=== PATIENT | male | born 1980 | race African-American/Black ===

== ENCOUNTER 2017-01-20 08:06 | Emergency (ER) | payer OTHER ==
[2017-01-20 08:12] VITALS: TEMP 97.4; BMI 28.4
[2017-01-20] MEDS ORDERED: SODIUM CHLORIDE 1,000 ML IV ONE (09:15)
--- NOTE | 2017-01-20 09:15 | PDOC ---
History of Present Illness <Valerio Rush - Last Filed: 01/20/17 15:51> - General History Source: Patient Exam Limitations: No Limitations - History of Present Illness Initial Comments: 01/20/17 09:25 36 y/o M with a PMHx of Takayasus arteritis, AAA x3, aortic root replacement, aortic valve repair, depression presents to the ED with right sided chest pain today. He describes the pain as a sharp, stabbing pain. He states the pain is better while lying down, and worsened with movement. He reports associated palpitations, diaphoresis, lightheadedness, and blurry vision. He took two Tylenol this morning with no relief. He reports similar episodes of chest pain in the past, that usually lasts a couple of seconds before resolving. He states this episode is more severe pain and lasted longer than normal. He recently saw his cardiac surgeon, who told him his aortic root is dilated 5.7 cm. He was told to follow up at the end of the year to see if it resolves on its own. He denies recent injuries. He denies SOB, fever, chills. He denies cough, headache , numbness, tingling, weakness. He denies abdominal pain, nausea, vomiting, diarrhea. Duplication Specialist: Dr. Danny Mora Cardiac Surgeon: Dr. Edwin Jaimes <Ramona Chacon - Last Filed: 01/20/17 16:01> - General Chief Complaint: Chest Pain Stated Complaint: CHEST PAIN Time Seen by Provider: 01/20/17 08:38 Past History - Past Medical History Anemia: No Asthma: No Cancer: No Cardiac Disorders: Yes (X 3 AAA) CVA: No COPD: No CHF: No Dementia: No Diabetes: No GI Disorders: No Disorders: No HTN: No Hypercholesterolemia: No Liver Disease: No Psychiatric Problems: Yes (depression) Suicide Attempt (Hx): No Seizures: No Thyroid Disease: No Other medical history: takayasu arteritis (blood vessel inflammation) - Surgical History Abdominal Surgery: Yes (ABDOMINAL HERNIA) Appendectomy: No Cardiac Surgery: Yes (AORTIC ROOT REPLACEMENT; "ASCENDING ANEURYM REPAIR", cardiac valve replacem) Cholecystectomy: No Lung Surgery: No Neurologic Surgery: No Orthopedic Surgery: No - Psycho/Social/Smoking Cessation Hx Anxiety: No Suicidal Ideation: No Smoking Status: No Smoking History: Never smoked Have you smoked in the past 12 months: No Number of Cigarettes Smoked Daily: 0 Information on smoking cessation initiated: No Hx Alcohol Use: No Drug/Substance Use Hx: No Substance Use Type: None Hx Substance Use Treatment: No <Valerio Rush - Last Filed: 01/20/17 15:51> <Ramona Chacon - Last Filed: 01/20/17 16:01> - Past Medical History Allergies/Adverse Reactions: Allergies Allergy/AdvReac Type Severity Reaction Status Date / Time lactose Allergy Verified 01/20/17 08:12 No Known Drug Allergies Allergy Verified 01/20/17 08:12 orange Allergy Mild Uncoded 01/20/17 08:12 Home Medications: Ambulatory Orders Calcium Carbonate/Vitamin D3 [Calcium 600-Vit D3 200 Tablet] 1 each PO BID 07/05 Carvedilol [Coreg] 6.25 mg PO BID 07/05/14 Folic Acid - 1 mg PO DAILY 07/05/14 Warfarin Sodium [Coumadin] 10 mg PO HS 07/05/14 Aspirin [ASA -] 81 mg PO DAILY 12/26/14 Famotidine 20 mg PO BID 12/26/14 Azathioprine [Imuran -] 100 mg PO BID 10/06/15 Carvedilol [Coreg -] 3.125 mg PO BID 01/20/17 Prednisone [Deltasone -] 5 mg PO BID 01/20/17 Review of Systems - Review of Systems Constitutional: No: Chills, Fever Respiratory: Yes: Shortness of Breath. No: Cough Cardiac (ROS): Yes: Chest Pain. No: Lightheadedness, Syncope ABD/GI: No: Nausea, Vomiting Musculoskeletal: Yes: Muscle Pain Neurological: No: Headache All Other Systems: Reviewed and Negative <Valerio Rush - Last Filed: 01/20/17 15:51> *Physical Exam - Vital Signs Last Vital Signs Temp Pulse Resp BP Pulse Ox 97.4 F L 70 18 114/60 99 01/20/17 08:09 01/20/17 08:09 01/20/17 08:09 01/20/17 08:09 01/20/17 08:09 <Valerio Rush - Last Filed: 01/20/17 15:51> - Vital Signs Last Vital Signs Temp Pulse Resp BP Pulse Ox 97.4 F L 70 18 114/60 99 01/20/17 08:09 01/20/17 08:09 01/20/17 08:09 01/20/17 08:09 01/20/17 08:09 - Physical Exam Comments: 01/20/17 09:51 GENERAL: The patient is awake, alert, and fully oriented, in no acute distress. HEAD: Normal with no signs of trauma. EYES: Pupils equal, round and reactive to light, extraocular movements intact, sclera anicteric, conjunctiva clear with no pallor. ENT: Ears normal, nares patent, oropharynx clear without exudates. Moist mucous membranes. NECK: Normal range of motion, supple without lymphadenopathy, JVD, or masses. LUNGS: Slightly distant breath sounds at left base. Otherwise clear to auscultation. No wheeze/crackles. HEART: 3-4/6 ejection murmur loudest at right upper sternal border with audible click of mechanical valve. Regular rate and rhythm, ABDOMEN: Soft/nontender/nondistended. BS wnl. No guarding or rebound. No palpable masses. No hepatosplenomegaly. EXTREMITIES: Normal range of motion, no edema. No clubbing or cyanosis. No cords, erythema, or tenderness. NEUROLOGICAL: Cranial nerves II through XII grossly intact. Normal speech, normal gait. PSYCH: Normal mood, normal affect. SKIN: Midline chest incisional scar. Warm, Dry, normal turgor, no rashes or lesions noted. <Ramona Chacon - Last Filed: 01/20/17 16:01> Heart Score/ECG Review #1 ECG reviewed & interpreted by me at: 08:13 01/20/17 09:38 Sinus at 66 with normal intervals. Submillimeter ST elevation in V1 and V2 without reciprocal changes that seem most consistent with early repolarization abnormality. Though these are new compared to prior EKG performed September 2015. LVH , no other acute changes. #2 ECG reviewed & interpreted by me at: 09:51 Compared to previous ECG there are: No significant change <Valerio Rush - Last Filed: 01/20/17 15:51> ED Treatment Course - LABORATORY CBC & Chemistry Diagram: 01/20/17 09:25 01/20/17 09:25 <Valerio Rush - Last Filed: 01/20/17 15:51> - LABORATORY CBC & Chemistry Diagram: 01/20/17 09:25 01/20/17 09:25 - RADIOLOGY Radiograph Interpretation: 01/20/17 11:21 Chest X-Ray Reported by Dr. Uli Denny Impression: Increased density in the left mid and lower lung field are again seen. Superimposed infiltrate cannot be excluded. 01/20/17 16:00 Chest CTA Reported by Dr. Shun Kumari Impression: No definite interval change is seen in comparison to a prior study of 06/24/2016 as discussed above. <OswaldoRamona A - Last Filed: 01/20/17 16:01> Medical Decision Making - Medical Decision Making 01/20/17 09:40 A portion of this note was documented by scribe services under my direction. I have reviewed the details of the note, within reason, and agree with the documentation with the following case summary and management plan written by me. 36-year-old male with history of Takayasu's arteritis status post aortic root repair and aortic valve replacement with recently diagnosed dilatation of the ascending aorta to 5.7 centimeters on last evaluation within last 2 months presents now with persistent and sharp right-sided chest pain since this morning. No trauma, no cough or fevers or chills, associated with some diaphoresis and shortness of breath and palpitations. Vital signs normal, appears comfortable and speaking full sentences no jvd s1s2 regular with audible murmur and click at RUSB 2+ radial pulse b/l 36y/o M with h/o arteritis and known aortic root disease with R chest pain. HD stable, EKG without acute ischemia. Concern for exacerbation of arteritis, ? dissection, pericarditis r/o myocarditis, most benign ? musculoskeletal. less likely primary pulmonary process. labs, ekg, cxr --> will need chest cta for dissection declines pain meds discuss with Dr. Mora reassess 01/20/17 10:36 cbc/chem wnl, trop and bnp negative, mildly elevated AST/ALT. INR therapeutic. CXR pending but will proceed with CTA chest. 01/20/17 15:21 prelim CTA chest shows no acute change in known ascending aortic aneurysm, no dissection/PE/PTX. Discussed with Dr. Mora, will see patient in ED assist with dispo planning. 01/20/17 15:51 Discussed with patient and Dr. Mora at bedside. Sxs have improved significantly, now with increased ROM of RUE, remains NVI, chest pain resolved. CT chest shows no acute pathology, labs reviewed and wnl. Pt was evaluated in past for similar presentation and had no acute findings, sxs resolved spontaneously at that time as well. Plan is to discharge with close f/u with Dr. Mora and his PCP/ machine setter automatic. They will f/u with the patient daily this week to assess his sxs and determine indications for therapeutic doses of steroids. Pt agrees with plan, understdands strict return criteria. Also has close f/u with his surgeon - given no acute change in the ascending aorta, no emergent indication for surgery at this time. <Valerio Rush - Last Filed: 01/20/17 15:51> - Medical Decision Making 01/20/17 15:[address] Danny Mora. [phone] 01/20/17 15:[address] Mora. <Ramona Chacon - Last Filed: 01/20/17 16:01> *DC/Admit/Observation/Transfer <Valerio Rush - Last Filed: 01/20/17 15:51> - Attestations Scribe Attestion: 01/20/17 09:25 Documentation prepared by Ramona Chacon, acting as forensic medical examiner for Valerio Rush MD. <Ramona Chacon - Last Filed: 01/20/17 16:01> Diagnosis at time of Disposition: Right-sided chest pain, Takayasu's arteritis - Discharge Dispostion Disposition: HOME - Referrals Referrals: Vickie Ozuna MD [Primary Care Provider] - Danny Mora MD [Staff Physician] - - Patient Instructions Printed Discharge Instructions: DI for Atypical Chest Pain Additional Instructions: Activity as tolerated. Stay hydrated. Tylenol 1000 mg every 8 hours as needed for pain. Blood tests, an EKG, and a CAT scan of the chest showed no acute abnormalities. Keep the attached results for your records. Continue your medications as previously prescribed by your physician. You should follow up with your primary doctor, Dr. Mora, and your surgeon as soon as possible regarding today's emergency department visit. As discussed, your doctors will monitor your symptoms daily this week and determine any need for interventions, including whether we need to increase your steroid dose. Return to the emergency department for any new or concerning symptoms, particularly persistent or worsening chest pain, palpitations or shortness of breath, fever/chills, light-headedness/passing out.
[2017-01-20 09:59] LABS: BASOPHIL 0.4 % (0-2.0); EOSINOPHIL 0.5 % (0-4.5); MCH 30.1 pg (25.7-33.7); MEAN CELL VOLUME 91.1 fl (80-96); MEAN PLT VOLUME 7.4 fl (7.5-11.1); NEUTROPHILS 75.8 % (42.8-82.8); PLATELET COUNT 275 K/MM3 (134-434); RDW 17.8 % (11.9-15.9); WHITE BLOOD COUNT 7.6 K/mm3 (4.0-10.0)
[2017-01-20 10:17] LABS: INR 3.87 (0.82-1.09); PROTHROMBIN TIME (PATIENT) 43.8 SEC (9.98-11.88)
[2017-01-20 10:24] LABS: ALBUMIN 3.1 g/dl (3.4-5.0); ANION GAP 5 (8-16); BILIRUBIN,TOTAL 0.8 mg/dL (0.2-1.0); CALCIUM 8.7 mg/dL (8.5-10.1); CO2 31 mmol/L (21-32); CPK 69 IU/L (39-308); CREATININE 0.7 mg/dL (0.7-1.3); GLUCOSE,RANDOM 97 mg/dL (74-106); MAGNESIUM 1.9 mg/dL (1.8-2.4); SGOT/AST 64 U/L (15-37); SGPT/ALT 80 U/L (12-78); TOT PROT 6.3 g/dl (6.4-8.2)
[2017-01-20 10:26] LABS: ALK PHOS 63 U/L (45-117); TROPONIN I 0.02 ng/ml (0.00-0.05)
[2017-01-20 16:19] VITALS: BP 151/57; PULSE 51
--- NOTE | 2017-01-20 17:22 | EKG ---
Test Reason : Blood Pressure : / mmHG Vent. Rate : 056 BPM Atrial Rate : 056 BPM P-R Int : 176 ms QRS Dur : 106 ms QT Int : 428 ms P-R-T Axes : 026 001 005 degrees QTc Int : 413 ms SINUS BRADYCARDIA VOLTAGE CRITERIA FOR LEFT VENTRICULAR HYPERTROPHY ST ELEVATION, CONSIDER EARLY REPOLARIZATION, PERICARDITIS, OR INJURY ABNORMAL ECG WHEN COMPARED WITH ECG OF 20-JAN-2017 08:13, NO SIGNIFICANT CHANGE WAS FOUND Confirmed by CALEB VELIZ MD ([id number]) on 01/20/2017 5:22:13 PM Referred By: Confirmed By:CALEB VELIZ MD
--- NOTE | 2017-01-20 17:26 | EKG ---
Test Reason : Blood Pressure : / mmHG Vent. Rate : 066 BPM Atrial Rate : 066 BPM P-R Int : 156 ms QRS Dur : 098 ms QT Int : 384 ms P-R-T Axes : 044 -06 001 degrees QTc Int : 402 ms NORMAL SINUS RHYTHM POSSIBLE LEFT ATRIAL ENLARGEMENT LEFT VENTRICULAR HYPERTROPHY EARLY REPOLARIZATION ABNORMAL ECG WHEN COMPARED WITH ECG OF 26-SEP-2015 14:31, MINIMAL CRITERIA FOR SEPTAL INFARCT ARE NO LONGER PRESENT NON-SPECIFIC CHANGE IN ST SEGMENT IN ANTERIOR LEADS REPEAT EKG IF CLINICALLY INDICATED Confirmed by CALEB VELIZ MD ([id number]) on 01/20/2017 5:26:04 PM Referred By: Confirmed By:CALEB VELIZ MD
== END 2017-01-20 16:19 | disposition home or self-care (01) ==
LOC: JER 08:06
PROC: 3E0337Z Introduction of Electrolytic and Water Balance Substance into Peripheral Vein, Percutaneous Approach (ICD-10-PCS; principal; 2017-01-20)
DX: R07.89 Other chest pain (principal); M31.4 Aortic arch syndrome [Takayasu]
CPT/HCPCS: 36415; 71010-TC; 71275-TC; 80053; 83735; 83880; 84484; 85025; 85610; 86850; 86900; 86901; 93005; 93010; 96360; 99284-25

== ENCOUNTER 2017-04-06 07:42 | Inpatient (IN) | payer OTHER ==
--- NOTE | 2017-04-06 07:56 | PDOC ---
History of Present Illness - General Chief Complaint: Chronic pain Stated Complaint: NECK PAIN Time Seen by Provider: 04/06/17 07:47 History Source: Patient - History of Present Illness Timing/Duration: other Associated Symptoms: denies: chest pain, fever/chills, headaches, nausea/ vomiting, shortness of breath, syncope, weakness Past History - Past Medical History Allergies/Adverse Reactions: Allergies Allergy/AdvReac Type Severity Reaction Status Date / Time lactose Allergy Verified 04/06/17 08:04 No Known Drug Allergies Allergy Verified 04/06/17 08:04 orange Allergy Mild Uncoded 04/06/17 08:04 Home Medications: Ambulatory Orders Calcium Carbonate/Vitamin D3 [Calcium 600-Vit D3 200 Tablet] 1 each PO HS Carvedilol [Coreg] 6.25 mg PO DAILY 07/05/14 Folic Acid - 1 mg PO DAILY 07/05/14 Warfarin Sodium [Coumadin] 10 mg PO HS 07/05/14 Aspirin [ASA -] 81 mg PO DAILY 12/26/14 Famotidine 40 mg PO DAILY 12/26/14 Azathioprine [Imuran -] 100 mg PO DAILY 10/06/15 Carvedilol [Coreg -] 3.125 mg PO DAILY 01/20/17 Prednisone [Deltasone -] 5 mg PO DAILY 01/20/17 Benztropine Mesylate 0.5 mg PO HS 04/06/17 Propranolol HCl 10 mg PO BID 04/06/17 Anemia: No Asthma: No Cancer: No Cardiac Disorders: Yes (X 3 AAA) CVA: No COPD: No CHF: No Dementia: No Diabetes: No GI Disorders: No Disorders: No HTN: No Hypercholesterolemia: No Liver Disease: No Psychiatric Problems: Yes (depression) Seizures: No Thyroid Disease: No - Surgical History Abdominal Surgery: Yes (ABDOMINAL HERNIA) Appendectomy: No Cardiac Surgery: Yes (AORTIC ROOT REPLACEMENT; "ASCENDING ANEURYM REPAIR", cardiac valve replacem) Cholecystectomy: No Lung Surgery: No Neurologic Surgery: No Orthopedic Surgery: No - Suicide/Smoking/Psychosocial Hx Smoking Status: No Smoking History: Never smoked Have you smoked in the past 12 months: No Number of Cigarettes Smoked Daily: 0 Hx Alcohol Use: No Drug/Substance Use Hx: No Substance Use Type: None Hx Substance Use Treatment: No Review of Systems - Review of Systems HEENTM: No: Blurred Vision Respiratory: No: Shortness of Breath Cardiac (ROS): No: Chest Pain, Lightheadedness Neurological: No: Headache, Dizziness *Physical Exam - Physical Exam General Appearance: Yes: Appropriately Dressed. No: Apparent Distress HEENT: positive: Normal Voice Neck: positive: Tender (over R sternocleidomastoid and supraclavicular fossa, no skin changes or swelling), Supple Respiratory/Chest: positive: Normal Breath Sounds. negative: Respiratory Distress Cardiovascular: positive: Regular Rate, S1, S2, Other (no bruits heard over carotid arteries) Gastrointestinal/Abdominal: positive: Soft. negative: Tender Extremity: positive: Normal Inspection Integumentary: positive: Dry, Warm Neurologic: positive: Fully Oriented, Alert, Normal Mood/Affect, Motor Strength 5/5. negative: Sensory Deficit ED Treatment Course - LABORATORY CBC & Chemistry Diagram: 04/06/17 08:20 04/06/17 08:20 - RADIOLOGY Radiology Studies Ordered: Category Date Time Status CHEST PA & LAT [RAD] Stat Radiology 04/06/17 07:48 Ordered Medical Decision Making - Medical Decision Making 04/06/17 07:51 37 yo M, h/o Takayasu's arteritis, s/p aortic root replacement and repair of descending aortic dissection at [facility], on coumadin, p/w R neck pain x 3 weeks, sharp, 7/10 at its worse and is intermittent w/ no exacerbating/alleviating factors. States he took tylenol this am and states pain did not improve but does say that pain is currently 1/10. Denies any trauma or obvious inciting factors. No CARBAJAL, dizziness, visual changes, slurred speech, upper extremities weakness or sensory changes. No chest pain or sob. No similar pain in the past See exam Atraumatic R sided neck pain Given above hx, consider dissection but very low suspicion, unlikely radiculopathy, ? MSK as site tender to palpation Per records, was seen for similar sxs in 2015 and dx w/ MSK etiology -declines pain meds -ekg/cxr/labs -will further w/u w/ pt's cards 04/06/17 08:45 Case d/w pt's podiatric foot and ankle specialist, Dr Calderon, states he will come evaluate pt in ED and make recommendations 04/06/17 11:[address] Calderon who evaluated pt in ED, recommending echo and CTA neck/chest in ED 04/06/17 14:31 As per radiology, CT chest findings stable. However, there is decreased flow to the right internal carotid compared to the left side, cannot rule out dissection with certainty, recommend an MRA of the neck without contrast. Will discuss findings with cardiology. Anticipate admission for further evaluation. Echo still pending 04/06/17 14:46 04/06/17 16:34 Dr Calderon aware of CT findings. States given mechanical heart valve, there are specific MR parameters that must be met before patient can have MRA safely. Gonsalo recommending that I discussed with MRI. epitaxial reactor technician given copy of patient's mechanical heart valve card which has MRI conditions on back of card. States they will hold off on MRA and further evaluate to see if patient can get MRA safely. In the meantime, cardiology requesting that patient be admitted as inpatient as it might take several days to get patient therapeutic on his coumadin. Holding coumadin until dissection can be ruled out. Hospitalist aware 04/06/17 16:39 04/06/17 16:46 *DC/Admit/Observation/Transfer Diagnosis at time of Disposition: Neck pain on right side - Discharge Dispostion Condition at time of disposition: Fair Admit: Yes - Referrals Referrals: Vickie Ozuna MD [Primary Care Provider] - - Patient Instructions - Post Discharge Activity
[2017-04-06 08:04] VITALS: BMI 26.6
[2017-04-06 08:27] LABS: BASOPHIL 0.7 % (0-2.0); EOSINOPHIL 0.7 % (0-4.5); MCH 30.7 pg (25.7-33.7); MCHC 32.7 g/dl (32.0-35.9); MEAN CELL VOLUME 93.8 fl (80-96); MEAN PLT VOLUME 7.8 fl (7.5-11.1); NEUTROPHILS 74.2 % (42.8-82.8); PLATELET COUNT 249 K/MM3 (134-434); RDW 17.7 % (11.9-15.9); WHITE BLOOD COUNT 9.4 K/mm3 (4.0-10.0)
[2017-04-06 08:47] LABS: ALBUMIN 3.2 g/dl (3.4-5.0); ANION GAP 8 (8-16); BILIRUBIN,TOTAL 1.1 mg/dL (0.2-1.0); CALCIUM 8.2 mg/dL (8.5-10.1); CO2 27 mmol/L (21-32); CREATININE 0.7 mg/dL (0.7-1.3); GLUCOSE,RANDOM 90 mg/dL (74-106); SGOT/AST 49 U/L (15-37); SGPT/ALT 80 U/L (12-78); TOT PROT 6.7 g/dl (6.4-8.2)
[2017-04-06 08:49] LABS: ALK PHOS 58 U/L (45-117); CPK 63 IU/L (39-308); TROPONIN I 0.02 ng/ml (0.00-0.05)
--- NOTE | 2017-04-06 08:51 | CON.CARD ---
Consult Consult Specialty:: CARDIOLOGY Reason for Consultation:: NECK PAIN - History of Present Illness History of Present Illness: PMH; history of Takayasu's arteritis on immunosuppressive therapy , TAA s/p repair x 3 - last 2013 at [facility] [place], AVR mechanical valve on A/C , HTN, DM2, hyperlipidemia, - History Source History Provided By: Patient, Medical Record - Past Medical History Cardio/Vascular: Yes: Aneurysm (AAA x2 repair) Psych: Yes: Depression, Schizophrenia Rheumatology: Yes: Vasculitis (Takayasu's Arteritis) - Past Surgical History Past Surgical History: Yes: Hernia Repair, Valve Replacement (aortic) - Alcohol/Substance Use Hx Alcohol Use: No History of Substance Use: reports: None - Smoking History Smoking history: Never smoked Have you smoked in the past 12 months: No Aproximately how many cigarettes per day: 0 - Social History ADL: Independent Occupation: not working History of Recent Travel: No Home Medications - Allergies Allergies/Adverse Reactions: Allergies Allergy/AdvReac Type Severity Reaction Status Date / Time lactose Allergy Verified 04/06/17 08:04 No Known Drug Allergies Allergy Verified 04/06/17 08:04 orange Allergy Mild Uncoded 04/06/17 08:04 - Home Medications Home Medications: Ambulatory Orders Calcium Carbonate/Vitamin D3 [Calcium 600-Vit D3 200 Tablet] 1 each PO HS Carvedilol [Coreg] 6.25 mg PO DAILY 07/05/14 Folic Acid - 1 mg PO DAILY 07/05/14 Warfarin Sodium [Coumadin] 10 mg PO HS 07/05/14 Aspirin [ASA -] 81 mg PO DAILY 12/26/14 Famotidine 40 mg PO DAILY 12/26/14 Azathioprine [Imuran -] 100 mg PO DAILY 10/06/15 Carvedilol [Coreg -] 3.125 mg PO DAILY 01/20/17 Prednisone [Deltasone -] 5 mg PO DAILY 01/20/17 Benztropine Mesylate 0.5 mg PO HS 04/06/17 Propranolol HCl 10 mg PO BID 04/06/17 Family Disease History - Family Disease History Family Disease History: Diabetes: Mother, Heart Disease: Father ([place], HTN) Review of Systems Findings/Remarks: c/o l sided neck pain - Review of Systems Constitutional: reports: No Symptoms Eyes: reports: No Symptoms HENT: reports: No Symptoms Neck: reports: No Symptoms Cardiovascular: reports: No Symptoms Gastrointestinal: reports: No Symptoms Genitourinary: reports: No Symptoms Breasts: reports: No Symptoms Reported Musculoskeletal: reports: No Symptoms Integumentary: reports: No Symptoms Neurological: reports: No Symptoms Endocrine: reports: No Symptoms Hematology/Lymphatic: reports: No Symptoms Psychiatric: reports: No Symptoms Vital Signs: Vital Signs Temperature 98.0 F 04/06/17 07:45 Pulse Rate 63 04/06/17 07:45 Respiratory Rate 18 04/06/17 07:45 Blood Pressure 143/73 04/06/17 07:45 O2 Sat by Pulse Oximetry (%) 100 04/06/17 07:45 Constitutional: Yes: Well Nourished, No Distress, Calm Eyes: Yes: WNL, Conjunctiva Clear, EOM Intact HENT: Yes: WNL, Atraumatic, Normocephalic Neck: Yes: WNL, Supple, Trachea Midline Respiratory: Yes: WNL, Regular, CTA Bilaterally Gastrointestinal: Yes: WNL, Normal Bowel Sounds Renal/: Yes: WNL Cardiovascular: Yes: WNL, Regular Rate and Rhythm Musculoskeletal: Yes: WNL Extremities: Yes: WNL Integumentary: Yes: WNL Neurological: Yes: WNL, Alert, Oriented ...Motor Strength: WNL Psychiatric: Yes: WNL, Alert, Oriented - Other Data Labs, Other Data: Laboratory Tests 04/06/17 04/06/17 08:20 08:20 WBC 9.4 RBC 4.58 Hgb 14.0 Hct 43.0 MCV 93.8 MCH 30.7 MCHC 32.7 RDW 17.7 H Plt Count 249 MPV 7.8 Neutrophils % 74.2 Lymphocytes % 16.0 Monocytes % 8.4 Eosinophils % 0.7 Basophils % 0.7 Sodium 139 Potassium 4.0 Chloride 104 Carbon Dioxide 27 Anion Gap 8 BUN 12 D Creatinine 0.7 Creat Clearance w eGFR > 60 Random Glucose 90 Calcium 8.2 L Total Bilirubin 1.1 H D AST 49 H D ALT 80 H Alkaline Phosphatase 58 Creatine Kinase 63 Troponin I 0.02 Total Protein 6.7 Albumin 3.2 L Imaging - Results Chest X-ray: Image Reviewed (s/p s/p surgery no i/e) EKG: Pending Problem List - Problems (1) Closed left ankle fracture Code(s): S82.892A - OTH FRACTURE OF LEFT LOWER LEG, INIT FOR CLOS FX (2) Elevated INR Code(s): R79.1 - ABNORMAL COAGULATION PROFILE (3) Fracture of distal fibula Code(s): S82.839A - OTH FRACTURE OF UPPER AND LOWER END OF UNSP FIBULA, INIT (4) Knee pain, right anterior Code(s): M25.561 - PAIN IN RIGHT KNEE (5) Liver mass Code(s): R16.0 - HEPATOMEGALY, NOT ELSEWHERE CLASSIFIED (6) Musculoskeletal chest pain Code(s): R07.89 - OTHER CHEST PAIN (7) Near syncope Code(s): R55 - SYNCOPE AND COLLAPSE (8) Pain, joint, knee, right Code(s): M25.561 - PAIN IN RIGHT KNEE (9) Post-op pain Code(s): G89.18 - OTHER ACUTE POSTPROCEDURAL PAIN (10) Right knee pain Code(s): M25.561 - PAIN IN RIGHT KNEE Qualifiers: Chronicity: acute Qualified Code(s): M25.561 - Pain in right knee (11) Right-sided chest pain Code(s): R07.9 - CHEST PAIN, UNSPECIFIED (12) Status post mechanical aortic valve replacement Code(s): Z95.2 - PRESENCE OF PROSTHETIC HEART VALVE (13) Takayasu's arteritis Code(s): M31.4 - AORTIC ARCH SYNDROME [TAKAYASU] (14) Warfarin-induced coagulopathy Code(s): T45.511A - POISONING BY ANTICOAGULANTS, ACCIDENTAL, INIT; D68.9 - COAGULATION DEFECT, UNSPECIFIED Assessment/Plan neck pain/ history of Takayasu's arteritis on immunosuppressive therapy , TAA s/p repair x 3 - last 2013 at [facility] [place], AVR mechanical valve on A/C , HTN, DM2, hyperlipidemia, Plan echo inr ekg ct chest and neck r/o dissection will f/u
[2017-04-06 12:48] LABS: INR 1.6 (0.82-1.09); PROTHROMBIN TIME (PATIENT) 18.1 SEC (9.98-11.88)
--- NOTE | 2017-04-06 13:56 | EKG ---
Test Reason : Blood Pressure : / mmHG Vent. Rate : 063 BPM Atrial Rate : 063 BPM P-R Int : 146 ms QRS Dur : 106 ms QT Int : 392 ms P-R-T Axes : 000 -27 -19 degrees QTc Int : 401 ms NORMAL SINUS RHYTHM VOLTAGE CRITERIA FOR LEFT VENTRICULAR HYPERTROPHY ABNORMAL ECG WHEN COMPARED WITH ECG OF 20-JAN-2017 09:51, NO SIGNIFICANT CHANGE WAS FOUND Confirmed by CRYSTAL CASAREZ MD ([id number]) on 04/06/2017 1:55:58 PM Referred By: Confirmed By:CRYSTAL CASAREZ MD
--- NOTE | 2017-04-06 21:27 | HP ---
CHIEF COMPLAINT: right sided neck pain PCP: Laith Cardio: Dione HISTORY OF PRESENT ILLNESS: This is a 37 year old male with a past medical history of TAA s/p descending repair, aortic root repair, AVR, Takayasu's arteritis presented to the ED with a 2-3 week history of intermittent right neck pain, lasting very brief periods. Pt reports that today the pain was more persistent which prompted him to come to the ED. He reports the pain has completely resolved with resting here in the ED. ER course was notable for: (1) CTA neck with decreased flow related enhancement R common and internal carotid arteries (2) CTA chest with grossly stable aneurysmal enlargement of the aortic root Recent Travel: pt denies PAST MEDICAL HISTORY: Takayasu's arteritis TAA depression HTN DM2 HLD-taken off meds "a long time ago" as per pt PAST SURGICAL HISTORY: Descending TAA repair aortic root replacement AVR-mechanical valve B/L foot biopsy R knee arthroscopy Social History: Smoking: pt denies Alcohol: pt denies Drugs: pt denies Family History: mother with DM father with HTN, stomach CA Allergies lactose Allergy (Verified 04/06/17 08:04) No Known Drug Allergies Allergy (Verified 04/06/17 08:04) orange Allergy (Mild, Uncoded 04/06/17 08:04) HOME MEDICATIONS: 3 Medication Instructions Recorded Calcium Carbonate/Vitamin D3 1 each PO HS 07/05/14 [Calcium 600-Vit D3 200 Tablet] Carvedilol [Coreg] 6.25 mg PO DAILY 07/05/14 Folic Acid - 1 mg PO DAILY 07/05/14 Warfarin Sodium [Coumadin] 10 mg PO HS 07/05/14 Aspirin [ASA -] 81 mg PO DAILY 12/26/14 Famotidine 40 mg PO DAILY 12/26/14 Azathioprine [Imuran -] 100 mg PO DAILY 10/06/15 Carvedilol [Coreg -] 3.125 mg PO DAILY 01/20/17 Prednisone [Deltasone -] 5 mg PO DAILY 01/20/17 Benztropine Mesylate 0.5 mg PO HS 04/06/17 Propranolol HCl 10 mg PO BID 04/06/17 REVIEW OF SYSTEMS CONSTITUTIONAL: Absent: fever, chills, diaphoresis, generalized weakness, malaise, loss of appetite, weight change HEENT: Present: R neck pain Absent: rhinorrhea, nasal congestion, throat pain, throat swelling, difficulty swallowing, mouth swelling, ear pain, eye pain, visual changes CARDIOVASCULAR: Absent: chest pain, syncope, palpitations, irregular heart rate, lightheadedness , peripheral edema RESPIRATORY: Absent: cough, shortness of breath, dyspnea with exertion, orthopnea, wheezing, stridor, hemoptysis GASTROINTESTINAL: Absent: abdominal pain, abdominal distension, nausea, vomiting, diarrhea, constipation, melena, hematochezia GENITOURINARY: Absent: dysuria, frequency, urgency, hesitancy, hematuria, flank pain, genital pain MUSCULOSKELETAL: Absent: myalgia, arthralgia, joint swelling, back pain, neck pain SKIN: Absent: rash, itching, pallor HEMATOLOGIC/IMMUNOLOGIC: Absent: easy bleeding, easy bruising, lymphadenopathy, frequent infections ENDOCRINE: Absent: unexplained weight gain, unexplained weight loss, heat intolerance, cold intolerance NEUROLOGIC: Absent: headache, focal weakness or paresthesias, dizziness, unsteady gait, seizure, mental status changes, bladder or bowel incontinence PSYCHIATRIC: Absent: anxiety, depression, suicidal or homicidal ideation, hallucinations. PHYSICAL EXAMINATION Vital Signs - 24 hr 3 04/06/17 04/06/17 04/06/17 07:45 12:25 17:54 Temperature 98.0 F 98.4 F 98.1 F Pulse Rate 70 Pulse Rate [ 66 57 L Left Apical] Respiratory 18 18 18 Rate Blood Pressure 143/73 Blood Pressure 114/76 157/97 [Left Arm] O2 Sat by Pulse 98 97 100 Oximetry (%) GENERAL: Awake, alert, and fully oriented, in no acute distress. HEAD: Normal with no signs of trauma. EYES: Pupils equal, round and reactive to light, extraocular movements intact, sclera anicteric, conjunctiva clear. No lid lag. EARS, NOSE, THROAT: Ears normal, nares patent, oropharynx clear without exudates. Moist mucous membranes. NECK: Normal range of motion, supple without lymphadenopathy, JVD, or masses. + bruit over L carotid, no thrill, no pain on palpation of neck, clavicle, shoulder LUNGS: Breath sounds equal, clear to auscultation bilaterally. No wheezes, and no crackles. No accessory muscle use. HEART: Regular rate and rhythm, normal S1 and S2 without murmur, rub or gallop. ABDOMEN: Soft, nontender, not distended, normoactive bowel sounds, no guarding, no rebound, no masses. No hepatomegaly or splenomegaly. MUSCULOSKELETAL: Normal range of motion at all joints. No bony deformities or tenderness. No CVA tenderness. UPPER EXTREMITIES: 2+ pulses, warm, well-perfused. No cyanosis. No clubbing. No peripheral edema. LOWER EXTREMITIES: 2+ pulses, warm, well-perfused. No calf tenderness. No peripheral edema. NEUROLOGICAL: Cranial nerves II-XII intact. Normal speech. Normal gait. PSYCHIATRIC: Cooperative. Good eye contact. Appropriate mood and affect. SKIN: Warm, dry, normal turgor, no rashes or lesions noted, normal capillary refill. Laboratory Results - last 24 hr 3 04/06/17 04/06/17 04/06/17 08:20 08:20 12:02 WBC 9.4 RBC 4.58 Hgb 14.0 Hct 43.0 MCV 93.8 MCH 30.7 MCHC 32.7 RDW 17.7 H Plt Count 249 MPV 7.8 Neutrophils % 74.2 Lymphocytes % 16.0 Monocytes % 8.4 Eosinophils % 0.7 Basophils % 0.7 PT with INR 18.10 H INR 1.60 H D Sodium 139 Potassium 4.0 Chloride 104 Carbon Dioxide 27 Anion Gap 8 BUN 12 D Creatinine 0.7 Creat Clearance w eGFR > 60 Random Glucose 90 Calcium 8.2 L Total Bilirubin 1.1 H D AST 49 H D ALT 80 H Alkaline Phosphatase 58 Creatine Kinase 63 Troponin I 0.02 Total Protein 6.7 Albumin 3.2 L ECG NSR, vent rate 63, QTC 401 voltage criteria for LVH No acute ST/T changes Radiology Reports CTA chest and neck IMPRESSION: 1. Status post aortic valve replacement. Grossly stable aneurysmal enlargement of the aortic root measuring up to 5.2 cm in diameter with no evidence of acute intramural hematoma or dissection in the thoracic aorta. 2. Grossly stable aneurysmal enlargement of the proximal aortic arch. Postsurgical changes along the descending thoracic aorta posterolateral left chest wall, unchanged. 3. Normal course and caliber of bilateral common carotid arteries and cervical segments of bilateral internal carotid arteries with no evidence of hemodynamically significant stenosis. Asymmetric, relatively decreased flow related enhancement in the right common carotid artery and the right internal carotid artery which is of indeterminant etiology, and could be secondary to limitations with technique. Recommend repeat dedicated vascular imaging of the neck, such as a repeat contrast enhanced CTA of the neck, MRA of the neck or catheter directed angiogram for further evaluation. 4. Cannot assess the origins , V1 or proximal V2 segments of the vertebral arteries due to contrast within collateral veins. ASSESSMENT/PLAN: 37yM with PMH Takayasu's arteritis with TAA s/p descending repair, aortic root repair, AVR mechanical, HTN, DM, HLD, depression presented to the ED with neck pain. Neck pain r/o aortic dissection - given equivocal finding in R carotids on CTA, MRA ordered and results pending. AVR with subtherapeutic INR - If MRA negative will contact Dr. Parham for POC re subtherapeutic INR Takayasu's arteritis - cont home meds, pt states he takes 125 of imuran, not 100, it was recently increased HTN - cont home coreg, 3.125mg and 6.25mg daily HLD - off meds as per pt DM - monitor BGM DVT PPX - defer chemoprophylaxis at this time FEN - pt tolerating po - BMP in am - low sodium diet once MRA results received Dispo: pt currently requires inpatient observation at this time. Addendum: 12AM MRA neck Impression: Unremarkable MRA of the neck. No evidence of carotid dissection. No evidence of hemodynamically significant stenosis. Reported By: Curry Pascal MD Discussed results with dr. Badillo, covering for Dr. Parham who recommends heparin drip to bridge to coumadin, give normal home dose 10mg coumadin tonight. Warfarin and heparin ordered. INR and PTT in am, PTT now Unclear etiology of neck pain which remains resolved. Will add on cardiac enzymes. Visit type - Emergency Visit Emergency Visit: Yes ED Registration Date: 04/06/17 Care time: The patient presented to the Emergency Department on the above date and was hospitalized for further evaluation of their emergent condition. - New Patient This patient is new to me today: Yes Date on this admission: 04/06/17 - Critical Care Critical Care patient: No
[2017-04-06] MEDS ORDERED: HEPARIN NA (PORCINE) 5,000 UNITS/ML 1ML VIAL IVPUSH PRN ×2 (23:55)
[2017-04-07] MEDS: WARFARIN NA 10 MG TABLET (FP) PO SCH ×2 (00:32→17:24)
[2017-04-07 01:35] LABS: CPK 62 IU/L (39-308); TROPONIN I < 0.02 ng/ml (0.00-0.05)
[2017-04-07] MEDS: HEPARIN INFUSION - 25,000 UNITS/500 ML INFUS.BAG IVPB SCH (01:40)
[2017-04-07 07:39] LABS: BASOPHIL 0.5 % (0-2.0); EOSINOPHIL 0.8 % (0-4.5); MCH 30.6 pg (25.7-33.7); MCHC 32.9 g/dl (32.0-35.9); MEAN CELL VOLUME 93.1 fl (80-96); MEAN PLT VOLUME 7.9 fl (7.5-11.1); NEUTROPHILS 64.5 % (42.8-82.8); PLATELET COUNT 243 K/MM3 (134-434); RDW 17.9 % (11.9-15.9); WHITE BLOOD COUNT 8.2 K/mm3 (4.0-10.0)
[2017-04-07 07:48] LABS: INR 1.61 (0.82-1.09); PROTHROMBIN TIME (PATIENT) 18.2 SEC (9.98-11.88)
--- NOTE | 2017-04-07 07:59 | PN ---
Physical Exam: SUBJECTIVE: Patient seen and examined oob to chair. Has not had a recurrence of right-side anterior neck pain since admission. OBJECTIVE: Vital Signs Period Temp Pulse Resp BP Sys/Tucker Pulse Ox Last 24 Hr 97.8 F-98.9 F 56-80 18-20 114-157/54-97 97-100 GENERAL: The patient is awake, alert, and fully oriented, in no acute distress. LUNGS: Breath sounds equal, clear to auscultation bilaterally, no wheezes, no crackles, no accessory muscle use. HEART: Regular rate and rhythm, S1, S2, mechanical click; well healed vertical surgical scar ABDOMEN: Soft, nontender, nondistended, normoactive bowel sounds, no guarding, no rebound EXTREMITIES: 2+ pulses, warm, well-perfused, no edema. NEUROLOGICAL: Cranial nerves II through XII grossly intact. Normal speech, gait not observed. PSYCH: Normal mood, normal affect. SKIN: Warm, dry, normal turgor Laboratory Results - last 24 hr 04/06/17 04/06/17 04/06/17 08:20 08:20 12:02 WBC 9.4 RBC 4.58 Hgb 14.0 Hct 43.0 MCV 93.8 MCH 30.7 MCHC 32.7 RDW 17.7 H Plt Count 249 MPV 7.8 Neutrophils % 74.2 Lymphocytes % 16.0 Monocytes % 8.4 Eosinophils % 0.7 Basophils % 0.7 PT with INR 18.10 H INR 1.60 H D PTT (Actin FS) Sodium 139 Potassium 4.0 Chloride 104 Carbon Dioxide 27 Anion Gap 8 BUN 12 D Creatinine 0.7 Creat Clearance w eGFR > 60 POC Glucometer Random Glucose 90 Calcium 8.2 L Total Bilirubin 1.1 H D AST 49 H D ALT 80 H Alkaline Phosphatase 58 Creatine Kinase 63 Troponin I 0.02 Total Protein 6.7 Albumin 3.2 L 04/07/17 04/07/17 04/07/17 00:25 00:25 05:25 WBC RBC Hgb Hct MCV MCH MCHC RDW Plt Count MPV Neutrophils % Lymphocytes % Monocytes % Eosinophils % Basophils % PT with INR 18.20 H INR 1.61 H PTT (Actin FS) 48.8 H Sodium Potassium Chloride Carbon Dioxide Anion Gap BUN Creatinine Creat Clearance w eGFR POC Glucometer Random Glucose Calcium Total Bilirubin AST ALT Alkaline Phosphatase Creatine Kinase 62 Troponin I < 0.02 Total Protein Albumin 04/07/17 06:52 WBC RBC Hgb Hct MCV MCH MCHC RDW Plt Count MPV Neutrophils % Lymphocytes % Monocytes % Eosinophils % Basophils % PT with INR INR PTT (Actin FS) Sodium Potassium Chloride Carbon Dioxide Anion Gap BUN Creatinine Creat Clearance w eGFR POC Glucometer 93 Random Glucose Calcium Total Bilirubin AST ALT Alkaline Phosphatase Creatine Kinase Troponin I Total Protein Albumin Active Medications Generic Name Dose Route Start Last Admin Trade Name Freq PRN Reason Stop Dose Admin Aspirin 81 mg 04/07/17 10:00 Asa - PO DAILY [facility] Azathioprine 125 mg 04/07/17 10:00 Imuran - PO DAILY [facility] Benztropine Mesylate 0.5 mg 04/07/17 22:00 Cogentin - PO HS [facility] Calcium Carbonate/Cholecalciferol 1 tab 04/07/17 22:00 Os-Carlos 500+D - PO HS [facility] Carvedilol 6.25 mg/ Carvedilol 9.375 mg 04/07/17 10:00 3.125 mg PO DAILY [facility] Folic Acid 1 mg 04/07/17 10:00 Folic Acid - PO DAILY [facility] Heparin Sodium (Porcine) 1,000 unit 04/06/17 23:55 Heparin - IVPUSH PRN PRN Heparin Heparin Sodium (Porcine) 5,000 unit 04/06/17 23:55 Heparin - IVPUSH PRN PRN Heparin Heparin Sodium/Dextrose 25,000 units in 500 mls @ 20 mls/hr 04/06/17 23:45 01:40 Heparin Infusion - IVPB 1,000 units/hr TITR [facility] 20 mls/hr Protocol Administration 1,000 UNITS/HR Prednisone 5 mg 04/07/17 10:00 Deltasone - PO DAILY [facility] Propranolol HCl 10 mg 04/07/17 10:00 Inderal - PO BID [facility] Ranitidine HCl 150 mg 04/07/17 10:00 Zantac - PO DAILY [facility] Warfarin Sodium 10 mg 04/07/17 00:15 04/07/17 00:32 Coumadin - PO 10 mg DAILY@1800 [facility] Administration ASSESSMENT/PLAN: 37 year-old male with a PMH significant for HTN and Takayasu's arteritis s/p mechanical aortic valve replacement (2013 [facility]), s/p descending aortic dissection repair (2004 [facility]) on coumadin. Initially placed on observation for evaluation of neck pain. Now converted to inpatient status because of a subtherapeutic INR (1.6) in the setting of a mechanical heart valve and significant co-morbidities which puts patient at significant risk of a cerebrovascular event. Patient requires a heparin drip until his INR is therapeutic (2.5-->3.5). Neck pain --04/06 CT chest showed decreased flow in right common carotid artery and right internal carotid artery, requiring further MRA imaging to rule out a dissection --04/06 MRA neck showed no dissection, unremarkable study --neck pain is described as sharp and intermittent, no recurrence since Thursday morning; neurological v. musculoskeletal v. other; needs outpatient follow up Takayasu's arteritis s/p mechanical AV replacement on coumadin --continue prednisone, azothiaprine, ASA --patient gets INR tested every 2 weeks; last week was told by Dr. Ozuna' s office his INR was 1.7 but not to make any dosing change (?) --INR subtherapeutic @ 1.6, goal 2.5-3.5; heparin drip started; dose coumadin 10mg tonight Hypertension --continue carvedilol, propranolol Tachycardia --overnight HR to 140s but asymptomatic --HR presently stable F/E/N Fluids: PO intake adequate Electrolytes: replete as indicated Nutrition: low sodium DVT prophylaxis: on heparin drip bridging to therapeutic coumadin INR Dispo: continues to require observation. Full code. Visit type - Emergency Visit Emergency Visit: Yes ED Registration Date: 04/07/17 Care time: The patient presented to the Emergency Department on the above date and was hospitalized for further evaluation of their emergent condition. - New Patient This patient is new to me today: Yes Date on this admission: 04/07/17 - Critical Care Critical Care patient: No
[2017-04-07 08:06] LABS: ANION GAP 7 (8-16); CALCIUM 8.2 mg/dL (8.5-10.1); CO2 28 mmol/L (21-32); GLUCOSE,RANDOM 79 mg/dL (74-106); MAGNESIUM 1.9 mg/dL (1.8-2.4)
[2017-04-07 08:07] LABS: CREATININE 0.6 mg/dL (0.7-1.3); PHOSPHOROUS 3.3 mg/dL (2.5-4.9)
[2017-04-07] MEDS ORDERED: CARVEDILOL 3.125 MG TABLET (FP) ONE (09:17)
[2017-04-07] MEDS ORDERED: CARVEDILOL 6.25 MG TABLET (FP) ONE (09:17)
[2017-04-07] MEDS ORDERED: PT OWN MED DRAWER 7, Y5N ONE (09:18)
[2017-04-07] MEDS: FOLIC ACID 1 MG TABLET (FP) PO SCH (09:23)
[2017-04-07] MEDS: PROPRANOLOL HCL 10 MG TABLET (FP) PO SCH ×2 (09:23→21:44)
[2017-04-07] MEDS: azaTHIOprine 50 MG TABLET PO SCH (09:23)
[2017-04-07] MEDS: predniSONE 5 MG TABLET (UD) PO SCH (09:23)
[2017-04-07] MEDS: ASPIRIN 81 MG CHEWABLE TABLETS PO SCH (09:23)
[2017-04-07] MEDS: RANITIDINE HCL 150 MG TABLET (FP) PO SCH (09:23)
[2017-04-07] MEDS: CARVEDILOL PO SCH (09:23)
[2017-04-07] MEDS ORDERED: CARVEDILOL 12.5 MG TABLET (FP) PO SCH (10:00)
[2017-04-07] MEDS ORDERED: CARVEDILOL 3.125 MG TABLET (FP) PO SCH (10:00)
--- NOTE | 2017-04-07 10:36 | PN ---
Progress Note, Physician History of Present Illness: PMH; history of Takayasu's arteritis on immunosuppressive therapy , TAA s/p repair x 3 - last 2013 at [facility], AVR mechanical valve on A/C , HTN, DM2, hyperlipidemia, - Current Medication List Current Medications: Active Medications Aspirin (Asa -) 81 mg PO DAILY [facility] Last Admin: 04/07/17 09:23 Dose: 81 mg Azathioprine (Imuran -) 125 mg PO DAILY [facility] Last Admin: 04/07/17 09:23 Dose: 125 mg Benztropine Mesylate (Cogentin -) 0.5 mg PO HS [facility] Calcium Carbonate/Cholecalciferol (Os-Carlos 500+D -) 1 tab PO HS [facility] Carvedilol 6.25 mg/ Carvedilol (3.125 mg) 9.375 mg PO DAILY [facility] Last Admin: 04/07/17 09:23 Dose: 9.375 mg Folic Acid (Folic Acid -) 1 mg PO DAILY [facility] Last Admin: 04/07/17 09:23 Dose: 1 mg Heparin Sodium (Porcine) (Heparin -) 1,000 unit IVPUSH PRN PRN PRN Reason: Heparin Heparin Sodium (Porcine) (Heparin -) 5,000 unit IVPUSH PRN PRN PRN Reason: Heparin Heparin Sodium/Dextrose (Heparin Infusion -) 25,000 units in 500 mls @ 20 mls/ hr IVPB TITR [facility]; 1,000 UNITS/HR PRN Reason: Protocol Last Admin: 04/07/17 01:40 Dose: 1,000 units/hr, 20 mls/hr Prednisone (Deltasone -) 5 mg PO DAILY [facility] Last Admin: 04/07/17 09:23 Dose: 5 mg Propranolol HCl (Inderal -) 10 mg PO BID [facility] Last Admin: 04/07/17 09:23 Dose: 10 mg Ranitidine HCl (Zantac -) 150 mg PO DAILY [facility] Last Admin: 04/07/17 09:23 Dose: 150 mg Warfarin Sodium (Coumadin -) 10 mg PO DAILY@1800 [facility] Last Admin: 04/07/17 00:32 Dose: 10 mg - Objective Vital Signs: Vital Signs Temperature 97.8 F 04/07/17 06:00 Pulse Rate 80 04/07/17 06:00 Respiratory Rate 20 04/07/17 06:00 Blood Pressure 140/54 04/07/17 06:00 O2 Sat by Pulse Oximetry (%) 100 04/07/17 06:00 Eyes: Yes: WNL, Conjunctiva Clear, EOM Intact HENT: Yes: WNL, Atraumatic, Normocephalic Neck: Yes: WNL, Supple, Trachea Midline Cardiovascular: Yes: WNL, Regular Rate and Rhythm, Murmur, S1, S2, Other ( metalic valve click) Respiratory: Yes: WNL, Regular, CTA Bilaterally Gastrointestinal: Yes: WNL, Normal Bowel Sounds Genitourinary: Yes: WNL Musculoskeletal: Yes: WNL Extremities: Yes: WNL Edema: No Integumentary: Yes: WNL Neurological: Yes: WNL, Alert, Oriented ...Motor Strength: WNL Psychiatric: Yes: WNL Labs: CBC, BMP 04/07/17 05:25 04/07/17 05:25 INR, PTT INR 1.61 (0.82-1.09) H 04/07/17 05:25 Problem List - Problems (1) Closed left ankle fracture Code(s): S82.892A - OTH FRACTURE OF LEFT LOWER LEG, INIT FOR CLOS FX (2) Elevated INR Code(s): R79.1 - ABNORMAL COAGULATION PROFILE (3) Fracture of distal fibula Code(s): S82.839A - OTH FRACTURE OF UPPER AND LOWER END OF UNSP FIBULA, INIT (4) Knee pain, right anterior Code(s): M25.561 - PAIN IN RIGHT KNEE (5) Liver mass Code(s): R16.0 - HEPATOMEGALY, NOT ELSEWHERE CLASSIFIED (6) Musculoskeletal chest pain Code(s): R07.89 - OTHER CHEST PAIN (7) Near syncope Code(s): R55 - SYNCOPE AND COLLAPSE (8) Pain, joint, knee, right Code(s): M25.561 - PAIN IN RIGHT KNEE (9) Post-op pain Code(s): G89.18 - OTHER ACUTE POSTPROCEDURAL PAIN (10) Right knee pain Code(s): M25.561 - PAIN IN RIGHT KNEE Qualifiers: Chronicity: acute Qualified Code(s): M25.561 - Pain in right knee (11) Right-sided chest pain Code(s): R07.9 - CHEST PAIN, UNSPECIFIED (12) Status post mechanical aortic valve replacement Code(s): Z95.2 - PRESENCE OF PROSTHETIC HEART VALVE (13) Takayasu's arteritis Code(s): M31.4 - AORTIC ARCH SYNDROME [TAKAYASU] (14) Warfarin-induced coagulopathy Code(s): T45.511A - POISONING BY ANTICOAGULANTS, ACCIDENTAL, INIT; D68.9 - COAGULATION DEFECT, UNSPECIFIED Assessment/Plan neck pain/ history of Takayasu's arteritis on immunosuppressive therapy , TAA s/p repair x 3 - last 2013 at [facility], AVR mechanical valve on A/C , HTN, DM2, hyperlipidemia, MRA wnl - no dissection Plan echo IV heparin until INR 2.5-3.5 discussed with the patient importance of therapeutic INR and risks of CVA will f/u
[2017-04-07] MEDS: BENZTROPINE MESYLATE 0.5 MG TABLET (FP) PO SCH (21:44)
[2017-04-07] MEDS: CALCIUM 500MG/VIT-D 200 UNITS COMBO TABLET (FP) PO SCH (21:44)
[2017-04-08 07:47] LABS: MCH 30.6 pg (25.7-33.7); MCHC 32.5 g/dl (32.0-35.9); MEAN CELL VOLUME 94.2 fl (80-96); MEAN PLT VOLUME 8.2 fl (7.5-11.1); PLATELET COUNT 232 K/MM3 (134-434); RDW 17.6 % (11.9-15.9); WHITE BLOOD COUNT 7.4 K/mm3 (4.0-10.0)
[2017-04-08 07:59] LABS: INR 1.79 (0.82-1.09); PROTHROMBIN TIME (PATIENT) 20.2 SEC (9.98-11.88)
[2017-04-08 08:27] LABS: CPK 54 IU/L (39-308); TROPONIN I < 0.02 ng/ml (0.00-0.05)
[2017-04-08] MEDS ORDERED: CARVEDILOL 3.125 MG TABLET (FP) ONE (09:51)
[2017-04-08] MEDS ORDERED: CARVEDILOL 6.25 MG TABLET (FP) ONE (09:51)
[2017-04-08] MEDS: azaTHIOprine 50 MG TABLET PO SCH (10:27)
[2017-04-08] MEDS: FOLIC ACID 1 MG TABLET (FP) PO SCH (10:27)
[2017-04-08] MEDS: RANITIDINE HCL 150 MG TABLET (FP) PO SCH (10:27)
[2017-04-08] MEDS: predniSONE 5 MG TABLET (UD) PO SCH (10:27)
[2017-04-08] MEDS: PROPRANOLOL HCL 10 MG TABLET (FP) PO SCH ×2 (10:27→21:03)
[2017-04-08] MEDS: CARVEDILOL PO SCH (10:27)
[2017-04-08] MEDS: ASPIRIN 81 MG CHEWABLE TABLETS PO SCH (10:28)
--- NOTE | 2017-04-08 10:47 | PN ---
Progress Note, Physician History of Present Illness: PMH; history of Takayasu's arteritis on immunosuppressive therapy , TAA s/p repair x 3 - last 2013 at [facility], AVR mechanical valve on A/C , HTN, DM2, hyperlipidemia, - Current Medication List Current Medications: Active Medications Aspirin (Asa -) 81 mg PO DAILY [facility] Last Admin: 04/08/17 10:28 Dose: 81 mg Azathioprine (Imuran -) 125 mg PO DAILY [facility] Last Admin: 04/08/17 10:27 Dose: 125 mg Benztropine Mesylate (Cogentin -) 0.5 mg PO HS [facility] Last Admin: 04/07/17 21:44 Dose: 0.5 mg Calcium Carbonate/Cholecalciferol (Os-Carlos 500+D -) 1 tab PO HS [facility] Last Admin: 04/07/17 21:44 Dose: 1 tab Carvedilol 6.25 mg/ Carvedilol (3.125 mg) 9.375 mg PO DAILY [facility] Last Admin: 04/08/17 10:27 Dose: 9.375 mg Folic Acid (Folic Acid -) 1 mg PO DAILY [facility] Last Admin: 04/08/17 10:27 Dose: 1 mg Heparin Sodium (Porcine) (Heparin -) 1,000 unit IVPUSH PRN PRN PRN Reason: Heparin Heparin Sodium (Porcine) (Heparin -) 5,000 unit IVPUSH PRN PRN PRN Reason: Heparin Heparin Sodium/Dextrose (Heparin Infusion -) 25,000 units in 500 mls @ 20 mls/ hr IVPB TITR [facility]; 1,000 UNITS/HR PRN Reason: Protocol Last Admin: 04/07/17 01:40 Dose: 1,000 units/hr, 20 mls/hr Prednisone (Deltasone -) 5 mg PO DAILY [facility] Last Admin: 04/08/17 10:27 Dose: 5 mg Propranolol HCl (Inderal -) 10 mg PO BID [facility] Last Admin: 04/08/17 10:27 Dose: 10 mg Ranitidine HCl (Zantac -) 150 mg PO DAILY [facility] Last Admin: 04/08/17 10:27 Dose: 150 mg Warfarin Sodium (Coumadin -) 10 mg PO DAILY@1800 [facility] Last Admin: 04/07/17 17:24 Dose: 10 mg - Objective Vital Signs: Vital Signs Temperature 97.8 F 04/08/17 04:59 Pulse Rate 76 04/08/17 04:59 Respiratory Rate 20 04/08/17 04:59 Blood Pressure 134/70 04/08/17 04:59 O2 Sat by Pulse Oximetry (%) 100 04/07/17 20:41 Eyes: Yes: WNL, Conjunctiva Clear, EOM Intact HENT: Yes: WNL, Atraumatic, Normocephalic Neck: Yes: WNL, Supple, Trachea Midline Cardiovascular: Yes: WNL, Regular Rate and Rhythm Respiratory: Yes: WNL, Regular, CTA Bilaterally Gastrointestinal: Yes: WNL, Normal Bowel Sounds Genitourinary: Yes: WNL Musculoskeletal: Yes: WNL Extremities: Yes: WNL Edema: No Integumentary: Yes: WNL Neurological: Yes: WNL, Alert, Oriented ...Motor Strength: WNL Psychiatric: Yes: WNL Labs: CBC, BMP 04/08/17 05:40 04/07/17 05:25 INR, PTT INR 1.79 (0.82-1.09) H 04/08/17 05:40 Problem List - Problems (1) Closed left ankle fracture Code(s): S82.892A - OTH FRACTURE OF LEFT LOWER LEG, INIT FOR CLOS FX (2) Elevated INR Code(s): R79.1 - ABNORMAL COAGULATION PROFILE (3) Fracture of distal fibula Code(s): S82.839A - OTH FRACTURE OF UPPER AND LOWER END OF UNSP FIBULA, INIT (4) Knee pain, right anterior Code(s): M25.561 - PAIN IN RIGHT KNEE (5) Liver mass Code(s): R16.0 - HEPATOMEGALY, NOT ELSEWHERE CLASSIFIED (6) Musculoskeletal chest pain Code(s): R07.89 - OTHER CHEST PAIN (7) Near syncope Code(s): R55 - SYNCOPE AND COLLAPSE (8) Pain, joint, knee, right Code(s): M25.561 - PAIN IN RIGHT KNEE (9) Post-op pain Code(s): G89.18 - OTHER ACUTE POSTPROCEDURAL PAIN (10) Right knee pain Code(s): M25.561 - PAIN IN RIGHT KNEE Qualifiers: Chronicity: acute Qualified Code(s): M25.561 - Pain in right knee (11) Right-sided chest pain Code(s): R07.9 - CHEST PAIN, UNSPECIFIED (12) Status post mechanical aortic valve replacement Code(s): Z95.2 - PRESENCE OF PROSTHETIC HEART VALVE (13) Takayasu's arteritis Code(s): M31.4 - AORTIC ARCH SYNDROME [TAKAYASU] (14) Warfarin-induced coagulopathy Code(s): T45.511A - POISONING BY ANTICOAGULANTS, ACCIDENTAL, INIT; D68.9 - COAGULATION DEFECT, UNSPECIFIED Assessment/Plan neck pain/ history of Takayasu's arteritis on immunosuppressive therapy , TAA s/p repair x 3 - last 2013 at [facility], AVR mechanical valve on A/C , HTN, DM2, hyperlipidemia, MRA wnl - no dissection Plan echo IV heparin until INR 2.5-3.5 discussed with the patient importance of therapeutic INR and risks of CVA will f/u
--- NOTE | 2017-04-08 12:40 | PN ---
Teaching Attending Note ATTENDING PHYSICIAN STATEMENT I saw and evaluated the patient. I reviewed the resident's note and discussed the case with the resident. I agree with the resident's findings and plan as documented. SUBJECTIVE: OBJECTIVE: ASSESSMENT AND PLAN:
--- NOTE | 2017-04-08 12:47 | PN ---
Teaching Attending Note Name of Resident: Clemencia Lundy ATTENDING PHYSICIAN STATEMENT Time of evaluation: 9:45 AM I saw and evaluated the patient. I reviewed the resident's note and discussed the case with the resident. I agree with the resident's findings and plan as documented. SUBJECTIVE: Patient seen and examined. No neck pain currently, no other complaints. OBJECTIVE: Vital Signs Period Temp Pulse Resp BP Sys/Tucker Pulse Ox Last 24 Hr 97.8 F-98.6 F 68-76 18-20 124-153/52-70 98-100 Intake & Output 04/05/17 04/06/17 04/07/17 04/08/17 23:59 23:59 23:59 23:59 Intake Total 1100 540 Balance 1100 540 Weight 191 lb General: sitting in sofa in no acute distress CVS:S1S2 regular, mechanical valve click in precordium, more prominent in aortic area Chest: CTAB, no rales or wheezing Neck: soft, supple Abdomen: soft, NT, ND, positive bowel sounds extremities: no edema Home Medication List Medication Instructions Recorded Confirmed Type Calcium Carbonate/Vitamin D3 1 each PO HS 07/05/14 04/06/17 History [Calcium 600-Vit D3 200 Tablet] Carvedilol [Coreg] 6.25 mg PO DAILY 07/05/14 04/06/17 History Folic Acid - 1 mg PO DAILY 07/05/14 04/06/17 History Warfarin Sodium [Coumadin] 10 mg PO HS 07/05/14 04/06/17 History Aspirin [ASA -] 81 mg PO DAILY 12/26/14 04/06/17 History Famotidine 40 mg PO DAILY 12/26/14 04/06/17 History Azathioprine [Imuran -] 100 mg PO DAILY 10/06/15 04/06/17 History Carvedilol [Coreg -] 3.125 mg PO DAILY 01/20/17 04/06/17 History Prednisone [Deltasone -] 5 mg PO DAILY 01/20/17 04/06/17 History Benztropine Mesylate 0.5 mg PO HS 04/06/17 04/06/17 History Propranolol HCl 10 mg PO BID 04/06/17 04/06/17 History Active Medications Generic Name Dose Route Start Last Admin Trade Name Freq PRN Reason Stop Dose Admin Aspirin 81 mg 04/07/17 10:00 04/08/17 10:28 Asa - PO 81 mg DAILY ADINA Administration Azathioprine 125 mg 04/07/17 10:00 04/08/17 10:27 Imuran - PO 125 mg DAILY ADINA Administration Benztropine Mesylate 0.5 mg 04/07/17 22:00 04/07/17 21:44 Cogentin - PO 0.5 mg HS ADINA Administration Calcium Carbonate/Cholecalciferol 1 tab 04/07/17 22:00 04/07/17 21:44 Os-Carlos 500+D - PO 1 tab HS ADINA Administration Carvedilol 6.25 mg/ Carvedilol 9.375 mg 04/07/17 10:00 04/08/17 10:27 3.125 mg PO 9.375 mg DAILY ADINA Administration Folic Acid 1 mg 04/07/17 10:00 04/08/17 10:27 Folic Acid - PO 1 mg DAILY ADINA Administration Heparin Sodium (Porcine) 1,000 unit 04/06/17 23:55 Heparin - IVPUSH PRN PRN Heparin Heparin Sodium (Porcine) 5,000 unit 04/06/17 23:55 Heparin - IVPUSH PRN PRN Heparin Heparin Sodium/Dextrose 25,000 units in 500 mls @ 20 mls/hr 04/06/17 23:45 01:40 Heparin Infusion - IVPB 1,000 units/hr TITR ADINA 20 mls/hr Protocol Administration 1,000 UNITS/HR Prednisone 5 mg 04/07/17 10:00 04/08/17 10:27 Deltasone - PO 5 mg DAILY ADINA Administration Propranolol HCl 10 mg 04/07/17 10:00 04/08/17 10:27 Inderal - PO 10 mg BID ADINA Administration Ranitidine HCl 150 mg 04/07/17 10:00 04/08/17 10:27 Zantac - PO 150 mg DAILY ADINA Administration Warfarin Sodium 10 mg 04/07/17 00:15 04/07/17 17:24 Coumadin - PO 10 mg DAILY@1800 ADINA Administration Lab Results WBC 7.4 K/mm3 (4.0-10.0) 04/08/17 05:40 RBC 4.43 M/mm3 (4.00-5.60) 04/08/17 05:40 Hgb 13.5 GM/dL (11.7-16.9) 04/08/17 05:40 Hct 41.7 % (35.4-49) 04/08/17 05:40 MCV 94.2 fl (80-96) 04/08/17 05:40 MCHC 32.5 g/dl (32.0-35.9) 04/08/17 05:40 RDW 17.6 % (11.9-15.9) H 04/08/17 05:40 Plt Count 232 K/MM3 (134-434) 04/08/17 05:40 Sodium 139 mmol/L (136-145) 04/07/17 05:25 Potassium 4.1 mmol/L (3.5-5.1) 04/07/17 05:25 Chloride 104 mmol/L (98-107) 04/07/17 05:25 Carbon Dioxide 28 mmol/L (21-32) 04/07/17 05:25 Anion Gap 7 (8-16) L 04/07/17 05:25 BUN 16 mg/dL (7-18) D 04/07/17 05:25 Creatinine 0.6 mg/dL (0.7-1.3) L 04/07/17 05:25 Random Glucose 79 mg/dL (74-106) 04/07/17 05:25 Calcium 8.2 mg/dL (8.5-10.1) L 04/07/17 05:25 INR 1.79 (0.82-1.09) H 04/08/17 05:40 ASSESSMENT AND PLAN: 37 year-old male with a PMH significant for HTN and 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), s/p descending aortic dissection repair (2004 [facility]) on coumadin. Initially placed on observation for evaluation of neck pain. Now converted to inpatient status because of a subtherapeutic INR (1.6) in the setting of a mechanical heart valve and significant co-morbidities which puts patient at significant risk of a cerebrovascular event. Patient requires a heparin drip until his INR is therapeutic (2.5-->3.5). -Neck pain -Takayasu's arteritis s/p mechanical AV replacement on coumadin -Hypertension -Tachycardia Plan: -04/06 CT chest showed decreased flow in right common carotid artery and right internal carotid artery, requiring further MRA imaging to rule out a dissection -04/06 MRA neck showed no dissection, unremarkable study -neck pain is described as sharp and intermittent, no recurrence since Thursday morning; neurological v. musculoskeletal v. other; needs outpatient follow up -continue prednisone, azothiaprine, ASA -patient gets INR tested every 2 weeks; last week was told by Dr. Ozuna's office his INR was 1.7 but not to make any dosing change (?) -INR subtherapeutic @ 1.7, goal 2.5-3.5; INR rising, heparin drip, continue coumadin 10 mg today -continue carvedilol, propranolol -no episodes of tachycardia overnight, monitor for now -DVT prophylaxis: on heparin drip bridging to therapeutic coumadin INR Dispo: pending therapeutic INR and resolution of medical issues. Plan discussed with patient in detail, all questions answered.
[2017-04-08] MEDS ORDERED: PT OWN MED DRAWER 7, Y5N ONE ×4 (15:13→21:11)
--- NOTE | 2017-04-08 16:31 | HP ---
OBSERVATION TO INPATIENT TRANSFER NOTE: HISTORY OF PRESENT ILLNESS: Pt is a 37yo M with a PMHx of Takayasu Arteritis with aortic involvement and HTN. He has a history of TAA s/p descending repair, aortic root repair, and Aortic mechanical valve replacement. He initially presented to the ER with 2-3 week hx of intermittent R neck pain, which had completely self-resolved in the ED. There was concern for dissection given his hx of vasculitis. CTA and further MRA of the neck revealed no dissection. He is on Coumadin for his Aortic valve, and was found to be subtherapeutic. Cardiology is on the case, and the patient is currently being bridged from Heparin ggt to Coumadin. Today, the patient is completely asymptomatic, denies neck pain. Recent Travel: Denies PAST MEDICAL HISTORY: Takayasu's arteritis, TAA, Major Depressive Disorder, HTN , DM2, HLD PAST SURGICAL HISTORY: Descending TAA repair, Aortic root replacement, AVR- mechanical valve, B/L foot biopsy, R knee arthroscopy Social History: Smoking: pt denies Alcohol: pt denies Drugs: pt denies HOME MEDICATIONS: Home Medications Medication Instructions Recorded Calcium Carbonate/Vitamin D3 1 each PO HS 07/05/14 [Calcium 600-Vit D3 200 Tablet] Carvedilol [Coreg] 6.25 mg PO DAILY 07/05/14 Folic Acid - 1 mg PO DAILY 07/05/14 Warfarin Sodium [Coumadin] 10 mg PO HS 07/05/14 Aspirin [ASA -] 81 mg PO DAILY 12/26/14 Famotidine 40 mg PO DAILY 12/26/14 Azathioprine [Imuran -] 100 mg PO DAILY 10/06/15 Carvedilol [Coreg -] 3.125 mg PO DAILY 01/20/17 Prednisone [Deltasone -] 5 mg PO DAILY 01/20/17 Benztropine Mesylate 0.5 mg PO HS 04/06/17 Propranolol HCl 10 mg PO BID 04/06/17 REVIEW OF SYSTEMS CONSTITUTIONAL: Absent: fever, chills, diaphoresis, generalized weakness, malaise, loss of appetite, weight change HEENT: Absent: rhinorrhea, nasal congestion, throat pain, throat swelling, difficulty swallowing, mouth swelling, ear pain, eye pain, visual changes CARDIOVASCULAR: Absent: chest pain, syncope, palpitations, irregular heart rate, lightheadedness , peripheral edema RESPIRATORY: Absent: cough, shortness of breath, dyspnea with exertion, orthopnea, wheezing, stridor, hemoptysis GASTROINTESTINAL: Absent: abdominal pain, abdominal distension, nausea, vomiting, diarrhea, constipation, melena, hematochezia GENITOURINARY: Absent: dysuria, frequency, urgency, hesitancy, hematuria, flank pain, genital pain MUSCULOSKELETAL: Absent: myalgia, arthralgia, joint swelling, back pain, neck pain SKIN: Absent: rash, itching, pallor HEMATOLOGIC/IMMUNOLOGIC: Absent: easy bleeding, easy bruising, lymphadenopathy, frequent infections ENDOCRINE: Absent: unexplained weight gain, unexplained weight loss, heat intolerance, cold intolerance NEUROLOGIC: Absent: headache, focal weakness or paresthesias, dizziness, unsteady gait, seizure, mental status changes, bladder or bowel incontinence PSYCHIATRIC: Absent: anxiety, depression, suicidal or homicidal ideation, hallucinations. PHYSICAL EXAMINATION Vital Signs Temperature 98.7 F 04/08/17 14:00 Pulse Rate 68 04/08/17 14:00 Respiratory Rate 18 04/08/17 10:00 Blood Pressure 138/58 04/08/17 14:00 O2 Sat by Pulse Oximetry (%) 98 04/08/17 10:00 GEN: AAOx3, NAD, SItting comfortably in the solarium HEENT: PERRLA, EOmi CV: S1, S2, RRR, valvular click heard in aortic region LUNG: CTABL ABD: Soft, NT, ND MSK: No edema, no erythema, large scar on chest Laboratory Last Values WBC 7.4 K/mm3 (4.0-10.0) 04/08/17 05:40 RBC 4.43 M/mm3 (4.00-5.60) 04/08/17 05:40 Hgb 13.5 GM/dL (11.7-16.9) 04/08/17 05:40 Hct 41.7 % (35.4-49) 04/08/17 05:40 MCV 94.2 fl (80-96) 04/08/17 05:40 MCH 30.6 pg (25.7-33.7) 04/08/17 05:40 MCHC 32.5 g/dl (32.0-35.9) 04/08/17 05:40 RDW 17.6 % (11.9-15.9) H 04/08/17 05:40 Plt Count 232 K/MM3 (134-434) 04/08/17 05:40 MPV 8.2 fl (7.5-11.1) 04/08/17 05:40 Neutrophils % 64.5 % (42.8-82.8) 04/07/17 05:25 Lymphocytes % 25.6 % (8-40) D 04/07/17 05:25 Monocytes % 8.6 % (3.8-10.2) 04/07/17 05:25 Eosinophils % 0.8 % (0-4.5) 04/07/17 05:25 Basophils % 0.5 % (0-2.0) 04/07/17 05:25 PT with INR 20.20 SEC (9.98-11.88) H 04/08/17 05:40 INR 1.79 (0.82-1.09) H 04/08/17 05:40 PTT (Actin FS) 73.9 SECONDS (26.9-34.4) H 04/08/17 05:40 Sodium 139 mmol/L (136-145) 04/07/17 05:25 Potassium 4.1 mmol/L (3.5-5.1) 04/07/17 05:25 Chloride 104 mmol/L (98-107) 04/07/17 05:25 Carbon Dioxide 28 mmol/L (21-32) 04/07/17 05:25 Anion Gap 7 (8-16) L 04/07/17 05:25 BUN 16 mg/dL (7-18) D 04/07/17 05:25 Creatinine 0.6 mg/dL (0.7-1.3) L 04/07/17 05:25 Creat Clearance w eGFR > 60 (>60) 04/06/17 08:20 POC Glucometer 90 UNITS (80-120) 04/08/17 06:55 Random Glucose 79 mg/dL (74-106) 04/07/17 05:25 Calcium 8.2 mg/dL (8.5-10.1) L 04/07/17 05:25 Phosphorus 3.3 mg/dL (2.5-4.9) 04/07/17 05:25 Magnesium 1.9 mg/dL (1.8-2.4) 04/07/17 05:25 Total Bilirubin 1.1 mg/dL (0.2-1.0) H D 04/06/17 08:20 AST 49 U/L (15-37) H D 04/06/17 08:20 ALT 80 U/L (12-78) H 04/06/17 08:20 Alkaline Phosphatase 58 U/L (45-117) 04/06/17 08:20 Creatine Kinase 54 IU/L (39-308) 04/08/17 05:40 Troponin I < 0.02 ng/ml (0.00-0.05) 04/08/17 05:40 Total Protein 6.7 g/dl (6.4-8.2) 04/06/17 08:20 Albumin 3.2 g/dl (3.4-5.0) L 04/06/17 08:20 Active Medications Generic Name Dose Route Start Last Admin Trade Name Freq PRN Reason Stop Dose Admin Aspirin 81 mg 04/07/17 10:00 04/08/17 10:28 Asa - PO 81 mg DAILY ADINA Administration Azathioprine 125 mg 04/07/17 10:00 04/08/17 10:27 Imuran - PO 125 mg DAILY ADINA Administration Benztropine Mesylate 0.5 mg 04/07/17 22:00 04/07/17 21:44 Cogentin - PO 0.5 mg HS ADINA Administration Calcium Carbonate/Cholecalciferol 1 tab 04/07/17 22:00 04/07/17 21:44 Os-Carlos 500+D - PO 1 tab HS ADINA Administration Carvedilol 6.25 mg/ Carvedilol 9.375 mg 04/07/17 10:00 04/08/17 10:27 3.125 mg PO 9.375 mg DAILY ADINA Administration Folic Acid 1 mg 04/07/17 10:00 04/08/17 10:27 Folic Acid - PO 1 mg DAILY ADINA Administration Heparin Sodium (Porcine) 1,000 unit 04/06/17 23:55 Heparin - IVPUSH PRN PRN Heparin Heparin Sodium (Porcine) 5,000 unit 04/06/17 23:55 Heparin - IVPUSH PRN PRN Heparin Heparin Sodium/Dextrose 25,000 units in 500 mls @ 20 mls/hr 04/06/17 23:45 01:40 Heparin Infusion - IVPB 1,000 units/hr TITR ADINA 20 mls/hr Protocol Administration 1,000 UNITS/HR Prednisone 5 mg 04/07/17 10:00 04/08/17 10:27 Deltasone - PO 5 mg DAILY ADINA Administration Propranolol HCl 10 mg 04/07/17 10:00 04/08/17 10:27 Inderal - PO 10 mg BID ADINA Administration Ranitidine HCl 150 mg 04/07/17 10:00 04/08/17 10:27 Zantac - PO 150 mg DAILY ADINA Administration Warfarin Sodium 10 mg 04/07/17 00:15 04/07/17 17:24 Coumadin - PO 10 mg DAILY@1800 ADINA Administration ASSESSMENT/PLAN: Mr Douglas is a 37yo M with PMx of Takayasu arteritis with aortic valve involvement including mechanical aortic valve replacement. He initially presented with neck pain, dissection was ruled out, he is now being bridge to COumadin with Hep gtt for subtherapeutic INR # Neck Pain - Dissection is ruled out with CTA/MRA, likely musculoskeletal, some strains with movement, will need outpt f/u # Subtherapeutic INR - Patient is on COumadin due to mechanical aortic valve replacement, currently on Heparin ggt to Coumadin - Continue current Coumadin dose of 10mg, PT/INR f/u, INR goal 2.5-3.5 # Takayasu Arteritis with Aortic Involvement - Has mechanical valve, has stable thoracic aortic aneurysm - Continue ASA 81 daily, Prednisone 5 daily, Azathioprine 125 daily # HTN - Well controlled w/ home Coreg 3.125 BID and Propranolol # Tachycardia - Was in 140s, tele moniitoring, likely d/c tele tmrw, HR stable # FEN - No IVF, elec wnl, low sodium diet # PPX - Hep bridge to COumadin, no GI ppx, no PT needed, pt is ambulatory # Dispo - Need therapeutic INR for 24 hours prior to discontinuing hep ggt, then can d/c home d/w Clemencia Bowen MD - [email or web address] Internal Medicine Visit type - Emergency Visit Emergency Visit: No - New Patient This patient is new to me today: No - Critical Care Critical Care patient: No
[2017-04-08] MEDS: WARFARIN NA 10 MG TABLET (FP) PO SCH (17:48)
[2017-04-08] MEDS: BENZTROPINE MESYLATE 0.5 MG TABLET (FP) PO SCH (21:03)
[2017-04-08] MEDS: CALCIUM 500MG/VIT-D 200 UNITS COMBO TABLET (FP) PO SCH (21:03)
[2017-04-09 08:17] LABS: MCH 31.7 pg (25.7-33.7); MCHC 34.2 g/dl (32.0-35.9); MEAN CELL VOLUME 92.8 fl (80-96); MEAN PLT VOLUME 8.2 fl (7.5-11.1); PLATELET COUNT 232 K/MM3 (134-434); RDW 17.2 % (11.9-15.9); WHITE BLOOD COUNT 8.3 K/mm3 (4.0-10.0)
--- NOTE | 2017-04-09 08:35 | PN ---
Physical Exam: SUBJECTIVE: Patient seen and examined. SLept well overnight. Asymptomatic. Neck pain has not reccured OBJECTIVE: Vital Signs Period Temp Pulse Resp BP Sys/Tucker Pulse Ox Last 24 Hr 98.0 F-98.8 F 68-87 18-20 125-146/58-70 98-99 GEN: AAOx3, NAD, SItting comfortably in the solarium HEENT: PERRLA, EOmi CV: S1, S2, RRR, valvular click heard in aortic region LUNG: CTABL ABD: Soft, NT, ND MSK: No edema, no erythema, large scar on chest Laboratory Results - last 24 hr 04/08/17 04/08/17 04/09/17 05:40 17:50 05:10 WBC 8.3 RBC 4.25 Hgb 13.5 Hct 39.4 MCV 92.8 MCH 31.7 MCHC 34.2 RDW 17.2 H Plt Count 232 MPV 8.2 PTT (Actin FS) POC Glucometer 119 Creatine Kinase 54 Troponin I < 0.02 04/09/17 04/09/17 05:10 06:23 WBC RBC Hgb Hct MCV MCH MCHC RDW Plt Count MPV PTT (Actin FS) 80.0 H POC Glucometer 93 Creatine Kinase Troponin I Active Medications Generic Name Dose Route Start Last Admin Trade Name Cindy PRN Reason Stop Dose Admin Aspirin 81 mg 04/07/17 10:00 04/08/17 10:28 Asa - PO 81 mg DAILY ADINA Administration Azathioprine 125 mg 04/07/17 10:00 04/08/17 10:27 Imuran - PO 125 mg DAILY ADINA Administration Benztropine Mesylate 0.5 mg 04/07/17 22:00 04/08/17 21:03 Cogentin - PO 0.5 mg HS ADINA Administration Calcium Carbonate/Cholecalciferol 1 tab 04/07/17 22:00 04/08/17 21:03 Os-Carlos 500+D - PO 1 tab HS ADINA Administration Carvedilol 6.25 mg/ Carvedilol 9.375 mg 04/07/17 10:00 04/08/17 10:27 3.125 mg PO 9.375 mg DAILY ADINA Administration Folic Acid 1 mg 04/07/17 10:00 04/08/17 10:27 Folic Acid - PO 1 mg DAILY ADINA Administration Heparin Sodium (Porcine) 1,000 unit 04/06/17 23:55 Heparin - IVPUSH PRN PRN Heparin Heparin Sodium (Porcine) 5,000 unit 04/06/17 23:55 Heparin - IVPUSH PRN PRN Heparin Heparin Sodium/Dextrose 25,000 units in 500 mls @ 20 mls/hr 04/06/17 23:45 01:40 Heparin Infusion - IVPB 1,000 units/hr TITR ADINA 20 mls/hr Protocol Administration 1,000 UNITS/HR Prednisone 5 mg 04/07/17 10:00 04/08/17 10:27 Deltasone - PO 5 mg DAILY ADINA Administration Propranolol HCl 10 mg 04/07/17 10:00 04/08/17 21:03 Inderal - PO 10 mg BID ADINA Administration Ranitidine HCl 150 mg 04/07/17 10:00 04/08/17 10:27 Zantac - PO 150 mg DAILY ADINA Administration Warfarin Sodium 10 mg 04/07/17 00:15 04/08/17 17:48 Coumadin - PO 10 mg DAILY@1800 ADINA Administration ASSESSMENT/PLAN: Mr Douglas is a 37yo M with PMx of Takayasu arteritis with aortic valve involvement including mechanical aortic valve replacement. He initially presented with neck pain, dissection was ruled out, he is now being bridge to COumadin with Hep gtt for subtherapeutic INR # Neck Pain - Resolved, carotid dissection ruled out with CTA/MRA, likely musculoskeletal, some strains with movement # Subtherapeutic INR - Patient is on Coumadin due to mechanical aortic valve replacement, currently on Heparin ggt to Coumadin - Continue current Coumadin dose of 10mg, INR 1.79 --> 1.97. INR goal 2.5-3.5 # Takayasu Arteritis with Aortic Involvement - Has mechanical valve, has stable thoracic aortic aneurysm - Continue ASA 81 daily, Prednisone 5 daily, Azathioprine 125 daily # HTN - Well controlled w/ home Coreg 3.125 BID and Propranolol # Tachycardia - Was in 140s, tele moniitoring, likely d/c tele tmrw, HR stable # FEN - No IVF, elec wnl, low sodium diet # PPX - Hep bridge to COumadin, no GI ppx, no PT needed, pt is ambulatory # Dispo - Need therapeutic INR for 24 hours prior to discontinuing hep ggt, then can d/c home d/w Dr Mitzy, Clemencia Lundy MD - [email or web address] Internal Medicine Visit type - Emergency Visit Emergency Visit: No - New Patient This patient is new to me today: No - Critical Care Critical Care patient: No - Discharge Referral Referred to [facility] Med P.C.: No
--- NOTE | 2017-04-09 08:45 | PN ---
Progress Note, Physician Chief Complaint: Coverage for [employer] No distress, sitting comfortably. No neck pain History of Present Illness: TELE: NSR - Current Medication List Current Medications: Active Medications Aspirin (Asa -) 81 mg PO DAILY [facility] Last Admin: 04/08/17 10:28 Dose: 81 mg Azathioprine (Imuran -) 125 mg PO DAILY [facility] Last Admin: 04/08/17 10:27 Dose: 125 mg Benztropine Mesylate (Cogentin -) 0.5 mg PO HS [facility] Last Admin: 04/08/17 21:03 Dose: 0.5 mg Calcium Carbonate/Cholecalciferol (Os-Carlos 500+D -) 1 tab PO HS [facility] Last Admin: 04/08/17 21:03 Dose: 1 tab Carvedilol 6.25 mg/ Carvedilol (3.125 mg) 9.375 mg PO DAILY [facility] Last Admin: 04/08/17 10:27 Dose: 9.375 mg Folic Acid (Folic Acid -) 1 mg PO DAILY [facility] Last Admin: 04/08/17 10:27 Dose: 1 mg Heparin Sodium (Porcine) (Heparin -) 1,000 unit IVPUSH PRN PRN PRN Reason: Heparin Heparin Sodium (Porcine) (Heparin -) 5,000 unit IVPUSH PRN PRN PRN Reason: Heparin Heparin Sodium/Dextrose (Heparin Infusion -) 25,000 units in 500 mls @ 20 mls/ hr IVPB TITR [facility]; 1,000 UNITS/HR PRN Reason: Protocol Last Admin: 04/07/17 01:40 Dose: 1,000 units/hr, 20 mls/hr Prednisone (Deltasone -) 5 mg PO DAILY [facility] Last Admin: 04/08/17 10:27 Dose: 5 mg Propranolol HCl (Inderal -) 10 mg PO BID [facility] Last Admin: 04/08/17 21:03 Dose: 10 mg Ranitidine HCl (Zantac -) 150 mg PO DAILY [facility] Last Admin: 04/08/17 10:27 Dose: 150 mg Warfarin Sodium (Coumadin -) 10 mg PO DAILY@1800 [facility] Last Admin: 04/08/17 17:48 Dose: 10 mg - Objective Vital Signs: Vital Signs Temperature 98.0 F 04/09/17 06:00 Pulse Rate 87 04/09/17 06:00 Respiratory Rate 20 04/09/17 06:00 Blood Pressure 146/70 04/09/17 06:00 O2 Sat by Pulse Oximetry (%) 99 04/08/17 21:00 Constitutional: Yes: No Distress Cardiovascular: Yes: Regular Rate and Rhythm Respiratory: Yes: CTA Bilaterally Gastrointestinal: Yes: Soft Neurological: Yes: Alert, Oriented Labs: CBC, BMP 04/09/17 05:10 04/07/17 05:25 INR, PTT INR 1.79 (0.82-1.09) H 04/08/17 05:40 Laboratory Tests 04/08/17 04/09/17 04/09/17 05:40 05:10 08:30 WBC 8.3 Hgb 13.5 Hct 39.4 Plt Count 232 INR 1.79 H Pending - ....Imaging EKG: Image Reviewed Assessment/Plan Assessment/Plan -neck pain: - imaging -history of Takayasu's arteritis on immunosuppressive therapy , TAA s/p repair x 3 - last 2013 at [facility], AVR mechanical valve on A/ C, HTN, DM2, hyperlipidemia, MRA wnl - no dissection Plan: IV heparin until INR 2.5-3.5
[2017-04-09 09:01] LABS: INR 1.97 (0.82-1.09); PROTHROMBIN TIME (PATIENT) 22.3 SEC (9.98-11.88)
[2017-04-09] MEDS ORDERED: CARVEDILOL 6.25 MG TABLET (FP) ONE (09:02)
[2017-04-09] MEDS ORDERED: CARVEDILOL 3.125 MG TABLET (FP) ONE (09:02)
[2017-04-09] MEDS ORDERED: PT OWN MED DRAWER 7, Y5N ONE ×2 (09:03→09:04)
[2017-04-09] MEDS: RANITIDINE HCL 150 MG TABLET (FP) PO SCH (09:18)
[2017-04-09] MEDS: ASPIRIN 81 MG CHEWABLE TABLETS PO SCH (09:18)
[2017-04-09] MEDS: predniSONE 5 MG TABLET (UD) PO SCH (09:18)
[2017-04-09] MEDS: CARVEDILOL PO SCH (09:18)
[2017-04-09] MEDS: FOLIC ACID 1 MG TABLET (FP) PO SCH (09:18)
--- NOTE | 2017-04-09 09:18 | PN ---
Teaching Attending Note Name of Resident: Clemencia Lundy ATTENDING PHYSICIAN STATEMENT Time of evaluation: 8:15 AM I saw and evaluated the patient. I reviewed the resident's note and discussed the case with the resident. I agree with the resident's findings and plan as documented. SUBJECTIVE: Patient seen and examined. no complaints. Denies any dizziness, palpitations, chest pain, or dyspnea earlier this AM. When asked about activity around 7 Am, reports was freshening up in the bathroom. OBJECTIVE: Vital Signs Period Temp Pulse Resp BP Sys/Tucker Pulse Ox Last 24 Hr 98.0 F-98.8 F 68-87 14-20 122-146/58-70 98-99 Intake & Output 04/06/17 04/07/17 04/08/17 04/09/17 23:59 23:59 23:59 23:59 Intake Total 1100 1360 Balance 1100 1360 Weight 191 lb General: sitting in chair in no acute distress CVS:S1S2 regular Chest: CTAB, no rales or wheezing Neck: soft, supple Abdomen: soft, NT, ND extremities: no edema Home Medication List Medication Instructions Recorded Confirmed Type Calcium Carbonate/Vitamin D3 1 each PO HS 07/05/14 04/06/17 History [Calcium 600-Vit D3 200 Tablet] Carvedilol [Coreg] 6.25 mg PO DAILY 07/05/14 04/06/17 History Folic Acid - 1 mg PO DAILY 07/05/14 04/06/17 History Warfarin Sodium [Coumadin] 10 mg PO HS 07/05/14 04/06/17 History Aspirin [ASA -] 81 mg PO DAILY 12/26/14 04/06/17 History Famotidine 40 mg PO DAILY 12/26/14 04/06/17 History Azathioprine [Imuran -] 100 mg PO DAILY 10/06/15 04/06/17 History Carvedilol [Coreg -] 3.125 mg PO DAILY 01/20/17 04/06/17 History Prednisone [Deltasone -] 5 mg PO DAILY 01/20/17 04/06/17 History Benztropine Mesylate 0.5 mg PO HS 04/06/17 04/06/17 History Propranolol HCl 10 mg PO BID 04/06/17 04/06/17 History Active Medications Generic Name Dose Route Start Last Admin Trade Name Freq PRN Reason Stop Dose Admin Aspirin 81 mg 04/07/17 10:00 04/08/17 10:28 Asa - PO 81 mg DAILY AD[facility] Administration Azathioprine 125 mg 04/07/17 10:00 04/08/17 10:27 Imuran - PO 125 mg DAILY [facility] Administration Benztropine Mesylate 0.5 mg 04/07/17 22:00 04/08/17 21:03 Cogentin - PO 0.5 mg HS ADINA Administration Calcium Carbonate/Cholecalciferol 1 tab 04/07/17 22:00 04/08/17 21:03 Os-Carlos 500+D - PO 1 tab HS ADINA Administration Carvedilol 6.25 mg/ Carvedilol 9.375 mg 04/07/17 10:00 04/08/17 10:27 3.125 mg PO 9.375 mg DAILY [facility] Administration Folic Acid 1 mg 04/07/17 10:00 04/08/17 10:27 Folic Acid - PO 1 mg DAILY [facility] Administration Heparin Sodium (Porcine) 1,000 unit 04/06/17 23:55 Heparin - IVPUSH PRN PRN Heparin Heparin Sodium (Porcine) 5,000 unit 04/06/17 23:55 Heparin - IVPUSH PRN PRN Heparin Heparin Sodium/Dextrose 25,000 units in 500 mls @ 20 mls/hr 04/06/17 23:45 01:40 Heparin Infusion - IVPB 1,000 units/hr TITR [facility] 20 mls/hr Protocol Administration 1,000 UNITS/HR Prednisone 5 mg 04/07/17 10:00 04/08/17 10:27 Deltasone - PO 5 mg DAILY [facility] Administration Propranolol HCl 10 mg 04/07/17 10:00 04/08/17 21:03 Inderal - PO 10 mg BID ADINA Administration Ranitidine HCl 150 mg 04/07/17 10:00 04/08/17 10:27 Zantac - PO 150 mg DAILY [facility] Administration Warfarin Sodium 10 mg 04/07/17 00:15 04/08/17 17:48 Coumadin - PO 10 mg DAILY@1800 AD[facility] Administration Lab Results WBC 8.3 K/mm3 (4.0-10.0) 04/09/17 05:10 RBC 4.25 M/mm3 (4.00-5.60) 04/09/17 05:10 Hgb 13.5 GM/dL (11.7-16.9) 04/09/17 05:10 Hct 39.4 % (35.4-49) 04/09/17 05:10 MCV 92.8 fl (80-96) 04/09/17 05:10 MCHC 34.2 g/dl (32.0-35.9) 04/09/17 05:10 RDW 17.2 % (11.9-15.9) H 04/09/17 05:10 Plt Count 232 K/MM3 (134-434) 04/09/17 05:10 Sodium 139 mmol/L (136-145) 04/07/17 05:25 Potassium 4.1 mmol/L (3.5-5.1) 04/07/17 05:25 Chloride 104 mmol/L (98-107) 04/07/17 05:25 Carbon Dioxide 28 mmol/L (21-32) 04/07/17 05:25 Anion Gap 7 (8-16) L 04/07/17 05:25 BUN 16 mg/dL (7-18) D 04/07/17 05:25 Creatinine 0.6 mg/dL (0.7-1.3) L 04/07/17 05:25 Random Glucose 79 mg/dL (74-106) 04/07/17 05:25 Calcium 8.2 mg/dL (8.5-10.1) L 04/07/17 05:25 INR 1.97 (0.82-1.09) H 04/09/17 08:30 ASSESSMENT AND PLAN: 37 year-old male with a PMH significant for HTN and 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 Initially placed on observation for evaluation of neck pain. Now converted to inpatient status because of a subtherapeutic INR (1.6) in the setting of a mechanical heart valve and significant co-morbidities which puts patient at significant risk of a cerebrovascular event. Patient requires a heparin drip until his INR is therapeutic (2.5-->3.5). -Neck pain -Takayasu's arteritis s/p mechanical AV replacement on coumadin -Hypertension -Tachycardia Plan: -04/06 CT chest showed decreased flow in right common carotid artery and right internal carotid artery, requiring further MRA imaging to rule out a dissection -04/06 MRA neck showed no dissection, unremarkable study -neck pain is described as sharp and intermittent, no recurrence since Thursday morning; neurological v. musculoskeletal v. other; needs outpatient follow up -continue prednisone, azothiaprine, ASA -patient gets INR tested every 2 weeks; last week was told by Dr. Ozuna's office his INR was 1.7 but not to make any dosing change (?) -INR subtherapeutic @ 1.7, goal 2.5-3.5; INR rising, heparin drip, continue coumadin 10 mg today -continue carvedilol, propranolol -HR 50s overnight, this AM 140s with activity, sinus tachycardia, asymptomatic, currently resolved. Continue propranolol/coreg and discuss with cardiology if recurrent episodes. -DVT prophylaxis: on heparin drip bridging to therapeutic coumadin INR Dispo: pending therapeutic INR and resolution of medical issues. Plan discussed with patient in detail, all questions answered.
[2017-04-09] MEDS: HEPARIN INFUSION - 25,000 UNITS/500 ML INFUS.BAG IVPB SCH (09:19)
[2017-04-09] MEDS: azaTHIOprine 50 MG TABLET PO SCH (09:20)
[2017-04-09] MEDS: PROPRANOLOL HCL 10 MG TABLET (FP) PO SCH ×2 (09:20→21:20)
[2017-04-09] MEDS: WARFARIN NA 10 MG TABLET (FP) PO SCH (17:11)
[2017-04-09] MEDS: CALCIUM 500MG/VIT-D 200 UNITS COMBO TABLET (FP) PO SCH (21:20)
[2017-04-09] MEDS: BENZTROPINE MESYLATE 0.5 MG TABLET (FP) PO SCH (21:20)
[2017-04-10 06:48] LABS: INR 2.03 (0.82-1.09); PROTHROMBIN TIME (PATIENT) 22.9 SEC (9.98-11.88)
[2017-04-10 07:02] LABS: MCH 31.1 pg (25.7-33.7); MCHC 33.2 g/dl (32.0-35.9); MEAN CELL VOLUME 93.6 fl (80-96); MEAN PLT VOLUME 8.3 fl (7.5-11.1); PLATELET COUNT 237 K/MM3 (134-434); RDW 17.4 % (11.9-15.9); WHITE BLOOD COUNT 9.7 K/mm3 (4.0-10.0)
--- NOTE | 2017-04-10 07:06 | PN ---
Progress Note, Physician Chief Complaint: no distress TELE: NSR - Current Medication List Current Medications: Active Medications Aspirin (Asa -) 81 mg PO DAILY [facility] Last Admin: 04/09/17 09:18 Dose: 81 mg Azathioprine (Imuran -) 125 mg PO DAILY [facility] Last Admin: 04/09/17 09:20 Dose: 125 mg Benztropine Mesylate (Cogentin -) 0.5 mg PO HS [facility] Last Admin: 04/09/17 21:20 Dose: 0.5 mg Calcium Carbonate/Cholecalciferol (Os-Carlos 500+D -) 1 tab PO HS [facility] Last Admin: 04/09/17 21:20 Dose: 1 tab Carvedilol 6.25 mg/ Carvedilol (3.125 mg) 9.375 mg PO DAILY [facility] Last Admin: 04/09/17 09:18 Dose: 9.375 mg Folic Acid (Folic Acid -) 1 mg PO DAILY [facility] Last Admin: 04/09/17 09:18 Dose: 1 mg Heparin Sodium (Porcine) (Heparin -) 1,000 unit IVPUSH PRN PRN PRN Reason: Heparin Heparin Sodium (Porcine) (Heparin -) 5,000 unit IVPUSH PRN PRN PRN Reason: Heparin Heparin Sodium/Dextrose (Heparin Infusion -) 25,000 units in 500 mls @ 20 mls/ hr IVPB TITR [facility]; 1,000 UNITS/HR PRN Reason: Protocol Last Admin: 04/09/17 09:19 Dose: 950 units/hr, 19 mls/hr Prednisone (Deltasone -) 5 mg PO DAILY [facility] Last Admin: 04/09/17 09:18 Dose: 5 mg Propranolol HCl (Inderal -) 10 mg PO BID [facility] Last Admin: 04/09/17 21:20 Dose: 10 mg Ranitidine HCl (Zantac -) 150 mg PO DAILY [facility] Last Admin: 04/09/17 09:18 Dose: 150 mg Warfarin Sodium (Coumadin -) 10 mg PO DAILY@1800 [facility] Last Admin: 04/09/17 17:11 Dose: 10 mg - Objective Vital Signs: Vital Signs Temperature 98.6 F 04/10/17 06:00 Pulse Rate 72 04/10/17 06:00 Respiratory Rate 20 04/10/17 06:00 Blood Pressure 133/63 04/10/17 06:00 O2 Sat by Pulse Oximetry (%) 99 04/09/17 21:38 Cardiovascular: Yes: Regular Rate and Rhythm Respiratory: Yes: CTA Bilaterally Gastrointestinal: Yes: Soft Edema: No Neurological: Yes: Alert Labs: CBC, BMP 04/07/17 05:25 INR, PTT INR 2.03 (0.82-1.09) H 04/10/17 05:00 Laboratory Tests 04/06/17 04/07/17 04/07/17 08:20 00:25 05:25 WBC Hct Plt Count INR Troponin I 0.02 < 0.02 0.02 04/08/17 04/10/17 04/10/17 05:40 05:00 05:00 WBC 9.7 Hct 40.3 Plt Count 237 INR 2.03 H Troponin I < 0.02 - ....Imaging EKG: Image Reviewed Assessment/Plan Assessment/Plan -Neck pain: negative imaging -history of Takayasu's arteritis on immunosuppressive therapy , TAA s/p repair x 3 - last 2013 at [facility], AVR mechanical valve on A/ C, HTN, DM2, hyperlipidemia, MRA wnl - no dissection Plan: IV heparin until INR 2.5-3.5, as per Dr. Parham
--- NOTE | 2017-04-10 08:16 | PN ---
Physical Exam: SUBJECTIVE: Patient seen and examined. Completely asymptomatic. Slept well. OBJECTIVE: Vital Signs Period Temp Pulse Resp BP Sys/Tucker Pulse Ox Last 24 Hr 97.4 F-98.6 F 69-72 14-20 120-146/56-68 99-99 GEN: AAOx3, NAD, Lying comfortably in room HEENT: PERRLA, EOmi CV: S1, S2, RRR, valvular click heard in aortic region LUNG: CTABL ABD: Soft, NT, ND MSK: No edema, no erythema, large scar on chest Laboratory Last Values WBC 9.7 K/mm3 (4.0-10.0) 04/10/17 05:00 RBC 4.31 M/mm3 (4.00-5.60) 04/10/17 05:00 Hgb 13.4 GM/dL (11.7-16.9) 04/10/17 05:00 Hct 40.3 % (35.4-49) 04/10/17 05:00 MCV 93.6 fl (80-96) 04/10/17 05:00 MCH 31.1 pg (25.7-33.7) 04/10/17 05:00 MCHC 33.2 g/dl (32.0-35.9) 04/10/17 05:00 RDW 17.4 % (11.9-15.9) H 04/10/17 05:00 Plt Count 237 K/MM3 (134-434) 04/10/17 05:00 MPV 8.3 fl (7.5-11.1) 04/10/17 05:00 Neutrophils % 64.5 % (42.8-82.8) 04/07/17 05:25 Lymphocytes % 25.6 % (8-40) D 04/07/17 05:25 Monocytes % 8.6 % (3.8-10.2) 04/07/17 05:25 Eosinophils % 0.8 % (0-4.5) 04/07/17 05:25 Basophils % 0.5 % (0-2.0) 04/07/17 05:25 PT with INR 22.90 SEC (9.98-11.88) H 04/10/17 05:00 INR 2.03 (0.82-1.09) H 04/10/17 05:00 PTT (Actin FS) 78.4 SECONDS (26.9-34.4) H 04/10/17 05:00 Sodium 139 mmol/L (136-145) 04/07/17 05:25 Potassium 4.1 mmol/L (3.5-5.1) 04/07/17 05:25 Chloride 104 mmol/L (98-107) 04/07/17 05:25 Carbon Dioxide 28 mmol/L (21-32) 04/07/17 05:25 Anion Gap 7 (8-16) L 04/07/17 05:25 BUN 16 mg/dL (7-18) D 04/07/17 05:25 Creatinine 0.6 mg/dL (0.7-1.3) L 04/07/17 05:25 Creat Clearance w eGFR > 60 (>60) 04/06/17 08:20 POC Glucometer 91 UNITS (80-120) 04/10/17 05:45 Random Glucose 79 mg/dL (74-106) 04/07/17 05:25 Calcium 8.2 mg/dL (8.5-10.1) L 04/07/17 05:25 Phosphorus 3.3 mg/dL (2.5-4.9) 04/07/17 05:25 Magnesium 1.9 mg/dL (1.8-2.4) 04/07/17 05:25 Total Bilirubin 1.1 mg/dL (0.2-1.0) H D 04/06/17 08:20 AST 49 U/L (15-37) H D 04/06/17 08:20 ALT 80 U/L (12-78) H 04/06/17 08:20 Alkaline Phosphatase 58 U/L (45-117) 04/06/17 08:20 Creatine Kinase 54 IU/L (39-308) 04/08/17 05:40 Troponin I < 0.02 ng/ml (0.00-0.05) 04/08/17 05:40 Total Protein 6.7 g/dl (6.4-8.2) 04/06/17 08:20 Albumin 3.2 g/dl (3.4-5.0) L 04/06/17 08:20 Active Medications Generic Name Dose Route Start Last Admin Trade Name Freq PRN Reason Stop Dose Admin Aspirin 81 mg 04/07/17 10:00 04/09/17 09:18 Asa - PO 81 mg DAILY ADINA Administration Azathioprine 125 mg 04/07/17 10:00 04/09/17 09:20 Imuran - PO 125 mg DAILY ADINA Administration Benztropine Mesylate 0.5 mg 04/07/17 22:00 04/09/17 21:20 Cogentin - PO 0.5 mg HS ADINA Administration Calcium Carbonate/Cholecalciferol 1 tab 04/07/17 22:00 04/09/17 21:20 Os-Carlos 500+D - PO 1 tab HS ADINA Administration Carvedilol 6.25 mg/ Carvedilol 9.375 mg 04/07/17 10:00 04/09/17 09:18 3.125 mg PO 9.375 mg DAILY ADINA Administration Folic Acid 1 mg 04/07/17 10:00 04/09/17 09:18 Folic Acid - PO 1 mg DAILY ADINA Administration Heparin Sodium (Porcine) 1,000 unit 04/06/17 23:55 Heparin - IVPUSH PRN PRN Heparin Heparin Sodium (Porcine) 5,000 unit 04/06/17 23:55 Heparin - IVPUSH PRN PRN Heparin Heparin Sodium/Dextrose 25,000 units in 500 mls @ 20 mls/hr 04/06/17 23:45 09:19 Heparin Infusion - IVPB 950 units/hr TITR [facility] 19 mls/hr Protocol Administration 1,000 UNITS/HR Prednisone 5 mg 04/07/17 10:00 04/09/17 09:18 Deltasone - PO 5 mg DAILY ADINA Administration Propranolol HCl 10 mg 04/07/17 10:00 04/09/17 21:20 Inderal - PO 10 mg BID ADINA Administration Ranitidine HCl 150 mg 04/07/17 10:00 04/09/17 09:18 Zantac - PO 150 mg DAILY AD[facility] Administration Warfarin Sodium 10 mg 04/07/17 00:15 04/09/17 17:11 Coumadin - PO 10 mg DAILY@1800 ADINA Administration ASSESSMENT/PLAN: Mr Douglas is a 37yo M with PMx of Takayasu arteritis with aortic valve involvement including mechanical aortic valve replacement. He initially presented with neck pain, dissection was ruled out, he is now being bridge to COumadin with Hep gtt for subtherapeutic INR # Neck Pain - Resolved, carotid dissection ruled out with CTA/MRA, likely musculoskeletal, some strains with movement # Subtherapeutic INR - Patient is on Coumadin due to mechanical aortic valve replacement, currently on Heparin ggt to Coumadin - INR 1.97 --> 2.03, will continue home Coumadin 10mg nightly, monitor PT/INR # Takayasu Arteritis with Aortic Involvement - Has mechanical valve, has stable thoracic aortic aneurysm - Continue ASA 81 daily, Prednisone 5 daily, Azathioprine 125 daily # HTN - Well controlled w/ home Coreg 3.125 BID and Propranolol # Tachycardia - Was in 140s, tele moniitoring, likely d/c tele tmrw, HR stable # FEN - No IVF, elec wnl, low sodium diet # PPX - Hep bridge to COumadin, no GI ppx, no PT needed, pt is ambulatory # Dispo - Need therapeutic INR for 24 hours prior to discontinuing hep ggt, then can d/c home d/w Dr Forrester, Clemencia Lundy MD - [id number] Internal Medicine Visit type - Emergency Visit Emergency Visit: No - New Patient This patient is new to me today: No - Critical Care Critical Care patient: No - Discharge Referral Referred to [facility] No
[2017-04-10] MEDS: HEPARIN INFUSION - 25,000 UNITS/500 ML INFUS.BAG IVPB SCH ×2 (08:20→13:06)
[2017-04-10] MEDS ORDERED: CARVEDILOL 6.25 MG TABLET (FP) ONE (10:17)
[2017-04-10] MEDS ORDERED: CARVEDILOL 3.125 MG TABLET (FP) ONE (10:17)
[2017-04-10] MEDS: CARVEDILOL PO SCH (10:32)
[2017-04-10] MEDS: ASPIRIN 81 MG CHEWABLE TABLETS PO SCH (10:33)
[2017-04-10] MEDS: RANITIDINE HCL 150 MG TABLET (FP) PO SCH (10:33)
[2017-04-10] MEDS: FOLIC ACID 1 MG TABLET (FP) PO SCH (10:33)
[2017-04-10] MEDS: predniSONE 5 MG TABLET (UD) PO SCH (10:33)
[2017-04-10] MEDS: PROPRANOLOL HCL 10 MG TABLET (FP) PO SCH ×2 (10:33→21:33)
[2017-04-10] MEDS: azaTHIOprine 50 MG TABLET PO SCH (10:33)
[2017-04-10] MEDS ORDERED: PT OWN MED DRAWER 7, Y5N ONE ×2 (16:02→21:24)
[2017-04-10] MEDS: WARFARIN NA 10 MG TABLET (FP) PO SCH (17:18)
--- NOTE | 2017-04-10 17:48 | PN ---
Teaching Attending Note Name of Resident: Clemencia Lundy ATTENDING PHYSICIAN STATEMENT time of evaluation: 10:20 AM I saw and evaluated the patient. I reviewed the resident's note and discussed the case with the resident. I agree with the resident's findings and plan as documented. SUBJECTIVE: Patient seen and examined, no complaints. OBJECTIVE: Vital Signs Period Temp Pulse Resp BP Sys/Tucker Pulse Ox Last 24 Hr 97.4 F-9758 F 68-80 18-20 116-146/46-72 99-100 Intake & Output 04/07/17 04/08/17 04/09/17 04/10/17 23:59 23:59 23:59 23:59 Intake Total 1100 1360 1390 468 Balance 1100 1360 1390 468 General: sitting chair in no acute distress CVS: S1S2 regular Chest: CTAB, no rales or wheezing abdomen: soft, NT, ND Home Medication List Medication Instructions Recorded Confirmed Type Calcium Carbonate/Vitamin D3 1 each PO HS 07/05/14 04/06/17 History [Calcium 600-Vit D3 200 Tablet] Carvedilol [Coreg] 6.25 mg PO DAILY 07/05/14 04/06/17 History Folic Acid - 1 mg PO DAILY 07/05/14 04/06/17 History Warfarin Sodium [Coumadin] 10 mg PO HS 07/05/14 04/06/17 History Aspirin [ASA -] 81 mg PO DAILY 12/26/14 04/06/17 History Famotidine 40 mg PO DAILY 12/26/14 04/06/17 History Azathioprine [Imuran -] 100 mg PO DAILY 10/06/15 04/06/17 History Carvedilol [Coreg -] 3.125 mg PO DAILY 01/20/17 04/06/17 History Prednisone [Deltasone -] 5 mg PO DAILY 01/20/17 04/06/17 History Benztropine Mesylate 0.5 mg PO HS 04/06/17 04/06/17 History Propranolol HCl 10 mg PO BID 04/06/17 04/06/17 History Active Medications Generic Name Dose Route Start Last Admin Trade Name Freq PRN Reason Stop Dose Admin Aspirin 81 mg 04/07/17 10:00 04/10/17 10:33 Asa - PO 81 mg DAILY ADINA Administration Azathioprine 125 mg 04/07/17 10:00 04/10/17 10:33 Imuran - PO 125 mg DAILY [facility] Administration Benztropine Mesylate 0.5 mg 04/07/17 22:00 04/09/17 21:20 Cogentin - PO 0.5 mg HS [facility] Administration Calcium Carbonate/Cholecalciferol 1 tab 04/07/17 22:00 04/09/17 21:20 Os-Carlos 500+D - PO 1 tab HS [facility] Administration Carvedilol 6.25 mg/ Carvedilol 9.375 mg 04/07/17 10:00 04/10/17 10:32 3.125 mg PO 9.375 mg DAILY ADINA Administration Folic Acid 1 mg 04/07/17 10:00 04/10/17 10:33 Folic Acid - PO 1 mg DAILY [facility] Administration Heparin Sodium (Porcine) 1,000 unit 04/06/17 23:55 Heparin - IVPUSH PRN PRN Heparin Heparin Sodium (Porcine) 5,000 unit 04/06/17 23:55 Heparin - IVPUSH PRN PRN Heparin Heparin Sodium/Dextrose 25,000 units in 500 mls @ 20 mls/hr 04/06/17 23:45 13:06 Heparin Infusion - IVPB 900 units/hr TITR [facility] 18 mls/hr Protocol Administration 1,000 UNITS/HR Prednisone 5 mg 04/07/17 10:00 04/10/17 10:33 Deltasone - PO 5 mg DAILY [facility] Administration Propranolol HCl 10 mg 04/07/17 10:00 04/10/17 10:33 Inderal - PO 10 mg BID ADINA Administration Ranitidine HCl 150 mg 04/07/17 10:00 04/10/17 10:33 Zantac - PO 150 mg DAILY [facility] Administration Warfarin Sodium 10 mg 04/07/17 00:15 04/10/17 17:18 Coumadin - PO 10 mg DAILY@1800 AD[facility] Administration Laboratory Results - last 24 hr 04/10/17 04/10/17 04/10/17 05:00 05:00 05:00 WBC 9.7 RBC 4.31 Hgb 13.4 Hct 40.3 MCV 93.6 MCH 31.1 MCHC 33.2 RDW 17.4 H Plt Count 237 MPV 8.3 PT with INR 22.90 H INR 2.03 H PTT (Actin FS) 78.4 H POC Glucometer 04/10/17 04/10/17 05:45 17:17 WBC RBC Hgb Hct MCV MCH MCHC RDW Plt Count MPV PT with INR INR PTT (Actin FS) POC Glucometer 91 116 ASSESSMENT AND PLAN: 37 year-old male with a PMH significant for HTN and 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 Initially placed on observation for evaluation of neck pain. Now converted to inpatient status because of a subtherapeutic INR (1.6) in the setting of a mechanical heart valve and significant co-morbidities which puts patient at significant risk of a cerebrovascular event. Patient requires a heparin drip until his INR is therapeutic (2.5-->3.5). -Neck pain -Takayasu's arteritis s/p mechanical AV replacement on coumadin -Hypertension -Tachycardia Plan: -04/06 CT chest showed decreased flow in right common carotid artery and right internal carotid artery, requiring further MRA imaging to rule out a dissection -04/06 MRA neck showed no dissection, unremarkable study -neck pain is described as sharp and intermittent, no recurrence since Thursday morning; neurological v. musculoskeletal v. other; needs outpatient follow up -continue prednisone, azothiaprine, ASA -patient gets INR tested every 2 weeks; last week was told by Dr. Ozuna's office his INR was 1.7 but not to make any dosing change (?) -INR rising, heparin drip, continue coumadin 10 mg today -continue carvedilol, propranolol -HR improved, no concernign episodes. . Continue propranolol/coreg and discuss with cardiology if recurrent episodes. -DVT prophylaxis: on heparin drip bridging to therapeutic coumadin INR Dispo: pending therapeutic INR and resolution of medical issues. Plan discussed with patient in detail, all questions answered
[2017-04-10] MEDS: CALCIUM 500MG/VIT-D 200 UNITS COMBO TABLET (FP) PO SCH (21:33)
[2017-04-10] MEDS: BENZTROPINE MESYLATE 0.5 MG TABLET (FP) PO SCH (21:33)
[2017-04-11 08:40] LABS: INR 2.16 (0.82-1.09); PROTHROMBIN TIME (PATIENT) 24.4 SEC (9.98-11.88)
[2017-04-11 09:27] LABS: MCH 30.8 pg (25.7-33.7); MCHC 32.9 g/dl (32.0-35.9); MEAN CELL VOLUME 93.8 fl (80-96); MEAN PLT VOLUME 8.3 fl (7.5-11.1); PLATELET COUNT 253 K/MM3 (134-434); RDW 17.2 % (11.9-15.9); WHITE BLOOD COUNT 9.4 K/mm3 (4.0-10.0)
[2017-04-11] MEDS ORDERED: CARVEDILOL 3.125 MG TABLET (FP) ONE (10:07)
[2017-04-11] MEDS ORDERED: CARVEDILOL 6.25 MG TABLET (FP) ONE (10:07)
[2017-04-11] MEDS: PROPRANOLOL HCL 10 MG TABLET (FP) PO SCH ×2 (10:13→22:41)
[2017-04-11] MEDS: azaTHIOprine 50 MG TABLET PO SCH (10:13)
[2017-04-11] MEDS: FOLIC ACID 1 MG TABLET (FP) PO SCH (10:14)
[2017-04-11] MEDS: CARVEDILOL PO SCH (10:14)
[2017-04-11] MEDS: ASPIRIN 81 MG CHEWABLE TABLETS PO SCH (10:14)
[2017-04-11] MEDS: predniSONE 5 MG TABLET (UD) PO SCH (10:14)
[2017-04-11] MEDS: RANITIDINE HCL 150 MG TABLET (FP) PO SCH (10:14)
--- NOTE | 2017-04-11 13:07 | PN ---
Teaching Attending Note Name of Resident: Gia Lua ATTENDING PHYSICIAN STATEMENT Time of evaluation: 8:35 AM I saw and evaluated the patient. I reviewed the resident's note and discussed the case with the resident. I agree with the resident's findings and plan as documented. SUBJECTIVE: Patient seen and examined, no complaints. OBJECTIVE: Vital Signs Period Temp Pulse Resp BP Sys/Tucker Pulse Ox Last 24 Hr 97.4 F-98.8 F 63-87 18-20 105-138/46-79 100-100 Intake & Output 04/08/17 04/09/17 04/10/17 04/11/17 23:59 23:59 23:59 23:59 Intake Total 1360 1390 684 198 Balance 1360 1390 684 198 General: sitting in bed in no acute distress CVS: S1S2 regular Chest: CTAB, no rales or wheezing abdomen: soft, NT, positive bowel sounds extremities: no edema Home Medication List Medication Instructions Recorded Confirmed Type Calcium Carbonate/Vitamin D3 1 each PO HS 07/05/14 04/06/17 History [Calcium 600-Vit D3 200 Tablet] Carvedilol [Coreg] 6.25 mg PO DAILY 07/05/14 04/06/17 History Folic Acid - 1 mg PO DAILY 07/05/14 04/06/17 History Warfarin Sodium [Coumadin] 10 mg PO HS 07/05/14 04/06/17 History Aspirin [ASA -] 81 mg PO DAILY 12/26/14 04/06/17 History Famotidine 40 mg PO DAILY 12/26/14 04/06/17 History Azathioprine [Imuran -] 100 mg PO DAILY 10/06/15 04/06/17 History Carvedilol [Coreg -] 3.125 mg PO DAILY 01/20/17 04/06/17 History Prednisone [Deltasone -] 5 mg PO DAILY 01/20/17 04/06/17 History Benztropine Mesylate 0.5 mg PO HS 04/06/17 04/06/17 History Propranolol HCl 10 mg PO BID 04/06/17 04/06/17 History Active Medications Generic Name Dose Route Start Last Admin Trade Name Freq PRN Reason Stop Dose Admin Aspirin 81 mg 04/07/17 10:00 04/11/17 10:14 Asa - PO 81 mg DAILY ADINA Administration Azathioprine 125 mg 04/07/17 10:00 04/11/17 10:13 Imuran - PO 125 mg DAILY ADINA Administration Benztropine Mesylate 0.5 mg 04/07/17 22:00 04/10/17 21:33 Cogentin - PO 0.5 mg HS ADINA Administration Calcium Carbonate/Cholecalciferol 1 tab 04/07/17 22:00 04/10/17 21:33 Os-Carlos 500+D - PO 1 tab HS ADINA Administration Carvedilol 6.25 mg/ Carvedilol 9.375 mg 04/07/17 10:00 04/11/17 10:14 3.125 mg PO 9.375 mg DAILY ADINA Administration Folic Acid 1 mg 04/07/17 10:00 04/11/17 10:14 Folic Acid - PO 1 mg DAILY ADINA Administration Heparin Sodium (Porcine) 1,000 unit 04/06/17 23:55 Heparin - IVPUSH PRN PRN Heparin Heparin Sodium (Porcine) 5,000 unit 04/06/17 23:55 Heparin - IVPUSH PRN PRN Heparin Heparin Sodium/Dextrose 25,000 units in 500 mls @ 20 mls/hr 04/06/17 23:45 09:09 Heparin Infusion - IVPB 900 units/hr TITR ADINA 18 mls/hr Protocol Titration 1,000 UNITS/HR Prednisone 5 mg 04/07/17 10:00 04/11/17 10:14 Deltasone - PO 5 mg DAILY ADINA Administration Propranolol HCl 10 mg 04/07/17 10:00 04/11/17 10:13 Inderal - PO 10 mg BID ADINA Administration Ranitidine HCl 150 mg 04/07/17 10:00 04/11/17 10:14 Zantac - PO 150 mg DAILY ADINA Administration Warfarin Sodium 10 mg 04/07/17 00:15 04/10/17 17:18 Coumadin - PO 10 mg DAILY@1800 ADINA Administration Laboratory Last Values WBC 9.4 K/mm3 (4.0-10.0) 04/11/17 07:00 RBC 4.53 M/mm3 (4.00-5.60) 04/11/17 07:00 Hgb 14.0 GM/dL (11.7-16.9) 04/11/17 07:00 Hct 42.5 % (35.4-49) 04/11/17 07:00 MCV 93.8 fl (80-96) 04/11/17 07:00 MCH 30.8 pg (25.7-33.7) 04/11/17 07:00 MCHC 32.9 g/dl (32.0-35.9) 04/11/17 07:00 RDW 17.2 % (11.9-15.9) H 04/11/17 07:00 Plt Count 253 K/MM3 (134-434) 04/11/17 07:00 MPV 8.3 fl (7.5-11.1) 04/11/17 07:00 Neutrophils % 64.5 % (42.8-82.8) 04/07/17 05:25 Lymphocytes % 25.6 % (8-40) D 04/07/17 05:25 Monocytes % 8.6 % (3.8-10.2) 04/07/17 05:25 Eosinophils % 0.8 % (0-4.5) 04/07/17 05:25 Basophils % 0.5 % (0-2.0) 04/07/17 05:25 Manual Slide Review No Result Required. 04/11/17 07:00 PT with INR 24.40 SEC (9.98-11.88) H 04/11/17 07:00 INR 2.16 (0.82-1.09) H 04/11/17 07:00 PTT (Actin FS) 67.2 SECONDS (26.9-34.4) H 04/11/17 07:00 Sodium 139 mmol/L (136-145) 04/07/17 05:25 Potassium 4.1 mmol/L (3.5-5.1) 04/07/17 05:25 Chloride 104 mmol/L (98-107) 04/07/17 05:25 Carbon Dioxide 28 mmol/L (21-32) 04/07/17 05:25 Anion Gap 7 (8-16) L 04/07/17 05:25 BUN 16 mg/dL (7-18) D 04/07/17 05:25 Creatinine 0.6 mg/dL (0.7-1.3) L 04/07/17 05:25 Creat Clearance w eGFR > 60 (>60) 04/06/17 08:20 POC Glucometer 91 UNITS (80-120) 04/11/17 06:30 Random Glucose 79 mg/dL (74-106) 04/07/17 05:25 Calcium 8.2 mg/dL (8.5-10.1) L 04/07/17 05:25 Phosphorus 3.3 mg/dL (2.5-4.9) 04/07/17 05:25 Magnesium 1.9 mg/dL (1.8-2.4) 04/07/17 05:25 Total Bilirubin 1.1 mg/dL (0.2-1.0) H D 04/06/17 08:20 AST 49 U/L (15-37) H D 04/06/17 08:20 ALT 80 U/L (12-78) H 04/06/17 08:20 Alkaline Phosphatase 58 U/L (45-117) 04/06/17 08:20 Creatine Kinase 54 IU/L (39-308) 04/08/17 05:40 Troponin I < 0.02 ng/ml (0.00-0.05) 04/08/17 05:40 Total Protein 6.7 g/dl (6.4-8.2) 04/06/17 08:20 Albumin 3.2 g/dl (3.4-5.0) L 04/06/17 08:20 ASSESSMENT AND PLAN: 37 year-old male with a PMH significant for HTN and 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 Initially placed on observation for evaluation of neck pain. Now converted to inpatient status because of a subtherapeutic INR (1.6) in the setting of a mechanical heart valve and significant co-morbidities which puts patient at significant risk of a cerebrovascular event. Patient requires a heparin drip until his INR is therapeutic (2.5-->3.5). -Neck pain -Takayasu's arteritis s/p mechanical AV replacement on coumadin -Hypertension -Tachycardia Plan: -04/06 CT chest showed decreased flow in right common carotid artery and right internal carotid artery, requiring further MRA imaging to rule out a dissection -04/06 MRA neck showed no dissection, unremarkable study -neck pain is described as sharp and intermittent, no recurrence since Thursday morning; neurological v. musculoskeletal v. other; needs outpatient follow up -continue prednisone, azothiaprine, ASA -patient gets INR tested every 2 weeks; last week was told by Dr. Ozuna's office his INR was 1.7 but not to make any dosing change (?) -INR rising, heparin drip, continue coumadin 10 mg today -continue carvedilol, propranolol -HR improved, no concernign episodes. . Continue propranolol/coreg and discuss with cardiology if recurrent episodes. -DVT prophylaxis: on heparin drip bridging to therapeutic coumadin INR Dispo: pending therapeutic INR and resolution of medical issues. Plan discussed with patient in detail, all questions answered
[2017-04-11] MEDS: WARFARIN NA 10 MG TABLET (FP) PO SCH (17:55)
[2017-04-11] MEDS: HEPARIN INFUSION - 25,000 UNITS/500 ML INFUS.BAG IVPB SCH (17:56)
[2017-04-11] MEDS: BENZTROPINE MESYLATE 0.5 MG TABLET (FP) PO SCH (22:41)
[2017-04-11] MEDS: CALCIUM 500MG/VIT-D 200 UNITS COMBO TABLET (FP) PO SCH (22:41)
[2017-04-12 08:08] LABS: MCH 30.8 pg (25.7-33.7); MCHC 32.9 g/dl (32.0-35.9); MEAN CELL VOLUME 93.7 fl (80-96); MEAN PLT VOLUME 7.7 fl (7.5-11.1); PLATELET COUNT 265 K/MM3 (134-434); RDW 16.8 % (11.9-15.9); WHITE BLOOD COUNT 9.6 K/mm3 (4.0-10.0)
[2017-04-12] MEDS ORDERED: CARVEDILOL 3.125 MG TABLET (FP) ONE (09:11)
[2017-04-12] MEDS ORDERED: CARVEDILOL 6.25 MG TABLET (FP) ONE (09:11)
--- NOTE | 2017-04-12 10:06 | PN ---
Progress Note (short form) - Note Progress Note: Seen and examined no dsitress Vitals stable. Discussed w/ Dr. Parham yesterday: target INR is 2-3 for [facility] AVR. He had written 2.5 because he would ideally like to keep Mr. Douglas's INR around 2.5 because he is usually low or low normal. If INR remains 2-3 today, patient may be discharged on Coumadin and should have INR followed soon this week by his PCP Dr. Ozuna.
[2017-04-12 10:18] LABS: INR 2.22 (0.82-1.09); PROTHROMBIN TIME (PATIENT) 25.1 SEC (9.98-11.88)
[2017-04-12] MEDS: CARVEDILOL PO SCH (10:43)
[2017-04-12] MEDS: RANITIDINE HCL 150 MG TABLET (FP) PO SCH (10:45)
[2017-04-12] MEDS: predniSONE 5 MG TABLET (UD) PO SCH (10:45)
[2017-04-12] MEDS: ASPIRIN 81 MG CHEWABLE TABLETS PO SCH (10:45)
[2017-04-12] MEDS: FOLIC ACID 1 MG TABLET (FP) PO SCH (10:45)
[2017-04-12] MEDS: PROPRANOLOL HCL 10 MG TABLET (FP) PO SCH (10:46)
[2017-04-12] MEDS: azaTHIOprine 50 MG TABLET PO SCH (10:46)
--- NOTE | 2017-04-12 12:23 | DS ---
Physical Exam: SUBJECTIVE: Patient seen and examined OBJECTIVE: Vital Signs Period Temp Pulse Resp BP Sys/Tucker Pulse Ox Last 24 Hr 97.9 F-98.6 F 66-86 18-20 110-161/60-78 99 PHYSICAL EXAM GENERAL: The patient is awake, alert, and fully oriented, in no acute distress. HEAD: Normal with no signs of trauma. EYES: PERRL, extraocular movements intact, sclera anicteric, conjunctiva clear. ENT: Ears normal, nares patent, oropharynx clear without exudates, moist mucous membranes. NECK: Trachea midline, full range of motion, supple. LUNGS: Breath sounds equal, clear to auscultation bilaterally, no wheezes, no crackles, no accessory muscle use. HEART: Regular rate and rhythm, S1, S2 without murmur, rub or gallop. ABDOMEN: Soft, nontender, nondistended, normoactive bowel sounds, no guarding, no rebound EXTREMITIES: 2+ pulses, warm, well-perfused, no edema. NEUROLOGICAL: Cranial nerves II through XII grossly intact. Normal speech, gait not observed. PSYCH: Normal mood, normal affect. SKIN: Warm, dry, normal turgor, no rashes or lesions noted. LABS Laboratory Results - last 24 hr 04/11/17 04/11/17 04/12/17 16:55 22:09 05:33 WBC RBC Hgb Hct MCV MCH MCHC RDW Plt Count MPV Manual Slide Review PT with INR INR PTT (Actin FS) POC Glucometer 161 120 98 04/12/17 04/12/17 04/12/17 07:00 07:00 10:13 WBC 9.6 RBC 4.69 Hgb 14.5 Hct 44.0 MCV 93.7 MCH 30.8 MCHC 32.9 RDW 16.8 H Plt Count 265 MPV 7.7 Manual Slide Review No Result Required. PT with INR 25.10 H INR 2.22 H PTT (Actin FS) 65.6 H POC Glucometer HOSPITAL COURSE: Date of Admission:04/07/17 Date of Discharge: 04/12/17 37 year-old male with a PMH significant for HTN and Takayasu's arteritis s/p mechanical aortic valve replacement (2013 [facility]), s/p descending aortic dissection repair (2004 [facility]) on coumadin. Initially placed on observation for evaluation of neck pain. -04/06 CT chest showed decreased flow in right common carotid artery and right internal carotid artery, 04/06 MRA neck showed no dissection, unremarkable study. His neck pain resolved during his stay. He was noted with subtherapeutic INR (1.6) in the setting of a mechanical heart valve and significant co-morbidities which puts patient at significant risk of a cerebrovascular event. He was followed by cardiology and recommended inpatient heparin/coumadin bridging. Final INR goal 2.5-3.5. His INR currently is 2.2 and is cleared by cardiology for discharge with outpatient follow up. His is currently on Coumadin 10 mg daily. His is advised INR on 04/14 with his PCP. He had intermittent episodes of sinus tachycardia during his stay that resolved with continuation of coreg and propranolol and no additional intervention. Minutes to complete discharge: 40 Discharge Summary Reason For Visit: NECK PAIN ON RIGHT SIDE Current Active Problems Neck pain on right side (Acute) Right knee pain (Acute) Condition: Fair - Instructions Diet, Activity, Other Instructions: RECOMMENDATIONS: - You were admitted because of your neck pain, there is no dissection of your arteries - You were found to have a low INR, and we were treating you with blood thinners - Please take all your medications as prescribed - Avoid foods and medications that interact with your Coumadin - If you experience any severe chest pain, back pain, neck pain, shortness of breath, please return to the Emergency Department MEDICATION CHANGES: - Continue coumadin 10 mg daily starting today at home. - Continue your Azathioprine at 125 mg daily as recently increased by your doctor, no changes have been made to your home medications in the hospital. NEW FOLLOWUPS: - INR check on 04/14/2017 with your doctor and adjust your coumadin per his instructions - Dr Ozuna (Primary Care Doctor) - in 2 weeks - Dr Parham (Net Manager) - in 2 weeks Referrals: Vickie Ozuna MD [Primary Care Provider] - 2 Weeks Qasim Parham MD [Staff Physician] - 2 Weeks Disposition: HOME - Home Medications Comprehensive Discharge Medication List: Ambulatory Orders Calcium Carbonate/Vitamin D3 [Calcium 600-Vit D3 200 Tablet] 1 each PO HS Carvedilol [Coreg] 6.25 mg PO DAILY 07/05/14 Folic Acid - 1 mg PO DAILY 07/05/14 Warfarin Sodium [Coumadin] 10 mg PO HS 07/05/14 Aspirin [ASA -] 81 mg PO DAILY 12/26/14 Famotidine 40 mg PO DAILY 12/26/14 Carvedilol [Coreg -] 3.125 mg PO DAILY 01/20/17 Prednisone [Deltasone -] 5 mg PO DAILY 01/20/17 Benztropine Mesylate 0.5 mg PO HS 04/06/17 Propranolol HCl 10 mg PO BID 04/06/17 Azathioprine [Imuran -] 125 mg PO DAILY tablet 04/12/17 This patient is new to me today: No Emergency Visit: No Critical Care patient: No - Discharge Referral Referred to [facility] No
[2017-04-12 15:20] VITALS: BP 123/54; PULSE 69; TEMP 98.1
== END 2017-04-12 15:19 | disposition home or self-care (01) | DRG 861 ==
LOC: JER 07:42 → JERBED 16:37 → J4W 23:19 → J6S 23:21 → J4W 23:33 → OBSVTOIN 04-07 09:17 → J5S 04-10 14:35
PROVIDERS: ADMIT Internal Medicine; ATTEND Hospitalist
DX: R79.1 Abnormal coagulation profile (principal); M54.2 Cervicalgia; M25.561 Pain in right knee; I10 Essential (primary) hypertension; R00.0 Tachycardia, unspecified; E11.9 Type 2 diabetes mellitus without complications; Z95.2 Presence of prosthetic heart valve; M31.4 Aortic arch syndrome [Takayasu]
CPT/HCPCS: 36415; 70498-TC; 70547-TC; 71020-TC; 71275-TC; 80048; 80053; 82550; 83735; 84100; 84484; 85025; 85027; 85610; 85730; 93005; 93010; 93306-TC; 99285-25; G0378; J1644

== ENCOUNTER 2017-10-01 22:05 | Observation (INO) | payer OTHER ==
--- NOTE | 2017-10-01 23:42 | PDOC ---
History of Present Illness - General History Source: Patient, Old Records Exam Limitations: No Limitations - History of Present Illness Initial Comments: 10/01/17 23:56 The patient is a 37 year old male with a past medical history of Takayasus arteritis, AAA x3, aortic root replacement, aortic valve repair, and depression who presents to the emergency department with ecchymosis today. The patient reports that he took his daily dose of coumadin today even though his primary doctor told him not to. Today the patient had blood taken to measure his INR levels and the wound made but the needle is still bleeding. He endorses associated spontaneous bruising and bilateral lower extremity swelling and tenderness. He denies any recent changes in diet, hematuria, hematochezia, epistaxis, or bloody gums. <Tuan Manzano - Last Filed: 10/01/17 23:56> <Vivi Doan - Last Filed: 10/02/17 01:53> - General Chief Complaint: Edema Stated Complaint: Edema Time Seen by Provider: 10/01/17 22:22 Past History <Tuan Manzano - Last Filed: 10/01/17 23:56> - Past Medical History Anemia: No Asthma: No Cancer: No Cardiac Disorders: Yes (TAA) CVA: No COPD: No CHF: No Dementia: No Diabetes: Yes GI Disorders: No Disorders: No HTN: Yes Hypercholesterolemia: No Liver Disease: No Psychiatric Problems: Yes (depression) Seizures: No Thyroid Disease: No - Surgical History Abdominal Surgery: Yes (ABDOMINAL HERNIA) Appendectomy: No Cardiac Surgery: Yes (AORTIC ROOT REPLACEMENT;AVR,,DESENDING TAA REPAIR,) Cholecystectomy: No Lung Surgery: No Neurologic Surgery: No Orthopedic Surgery: Yes (BILATERAL FOOT BIOPSY,RT KNEE ARTHROSCOPY) - Immunization History Immunization Up to Date: Yes - Suicide/Smoking/Psychosocial Hx Smoking Status: No Smoking History: Never smoked Have you smoked in the past 12 months: No Number of Cigarettes Smoked Daily: 0 Information on smoking cessation initiated: No Hx Alcohol Use: No Drug/Substance Use Hx: No Substance Use Type: None Hx Substance Use Treatment: No <Vivi Doan - Last Filed: 10/02/17 01:53> - Past Medical History Allergies/Adverse Reactions: Allergies Allergy/AdvReac Type Severity Reaction Status Date / Time lactose Allergy Verified 10/01/17 22:26 No Known Drug Allergies Allergy Verified 10/01/17 22:26 orange Allergy Mild Uncoded 10/01/17 22:26 Home Medications: Ambulatory Orders Calcium Carbonate/Vitamin D3 [Calcium 600-Vit D3 200 Tablet] 1 each PO HS Carvedilol [Coreg] 6.25 mg PO DAILY 07/05/14 Folic Acid - 1 mg PO DAILY 07/05/14 Warfarin Sodium [Coumadin] 10 mg PO HS 07/05/14 Aspirin [ASA -] 81 mg PO DAILY 12/26/14 Famotidine 40 mg PO DAILY 12/26/14 Carvedilol [Coreg -] 3.125 mg PO DAILY 01/20/17 predniSONE [Deltasone -] 5 mg PO DAILY 01/20/17 Benztropine Mesylate 0.5 mg PO HS 04/06/17 Propranolol HCl 10 mg PO BID 04/06/17 Azathioprine [Imuran -] 125 mg PO DAILY tablet 04/12/17 Review of Systems - Review of Systems Able to Perform ROS?: Yes Comments:: 10/01/17 23:56 GENERAL/CONSTITUTIONAL: No fever or chills. No weakness. HEAD, EYES, EARS, NOSE AND THROAT: No change in vision. No ear pain or discharge. No sore throat. GASTROINTESTINAL: No nausea, vomiting, diarrhea or constipation. GENITOURINARY: No dysuria, frequency, or change in urination. CARDIOVASCULAR: No chest pain or shortness of breath. RESPIRATORY: No cough, wheezing, or hemoptysis. MUSCULOSKELETAL: Bilateral lower extremity edema and tenderness. No neck or back pain. SKIN: No rash NEUROLOGIC: No headache, vertigo, loss of consciousness, or change in strength/ sensation. ENDOCRINE: No increased thirst. No abnormal weight change. HEMATOLOGIC/LYMPHATIC: (+) Easy bleeding, ecchymosis No anemia or history of blood clots. ALLERGIC/IMMUNOLOGIC: No hives or skin allergy. <Tuan Manzano - Last Filed: 10/01/17 23:56> *Physical Exam - Vital Signs Last Vital Signs Temp Pulse Resp BP Pulse Ox 97.8 F 80 20 149/68 100 10/01/17 22:26 10/01/17 22:26 10/01/17 22:26 10/01/17 22:26 10/01/17 22:26 - Physical Exam Comments: 10/01/17 23:56 GENERAL: Awake, alert, and fully oriented, in no acute distress HEAD: No signs of trauma EYES: PERRLA, EOMI, sclera anicteric, conjunctiva clear ENT: Auricles normal inspection, hearing grossly normal, nares patent, oropharynx clear without exudates. Moist mucosa NECK: Normal ROM, supple, no lymphadenopathy, JVD, or masses LUNGS: Breath sounds equal, clear to auscultation bilaterally. No wheezes, and no crackles HEART: Regular rate and rhythm, normal S1 and S2, no murmurs, rubs or gallops ABDOMEN: Soft, nontender, normoactive bowel sounds. No guarding, no rebound. No masses EXTREMITIES: Normal range of motion, no edema. No clubbing or cyanosis. No cords, erythema, or tenderness NEUROLOGICAL: Cranial nerves II through XII grossly intact. Normal speech, normal gait SKIN: (+) Warm, Dry, normal turgor, bruises and soft tissue swelling to right upper extremity, actively bleeding puncture wound on the anterior aspect of the elbow. <Tuan Manzano - Last Filed: 10/01/17 23:56> - Vital Signs Last Vital Signs Temp Pulse Resp BP Pulse Ox 97.8 F 80 20 149/68 100 10/01/17 22:26 10/01/17 22:26 10/01/17 22:26 10/01/17 22:26 10/01/17 22:26 <Vivi Doan - Last Filed: 10/02/17 01:53> ED Treatment Course - LABORATORY CBC & Chemistry Diagram: 10/02/17 00:17 10/02/17 00:17 - RADIOLOGY Radiology Studies Ordered: Category Date Time Status DUPLEX VASCUL US-1 ARM [US] Stat Ultrasound 10/01/17 23:37 Ordered <Vivi Doan - Last Filed: 10/02/17 01:53> Medical Decision Making - Medical Decision Making 10/02/17 00:02 a/p: 37yo male with RUE swelling, bruising - on coumadin pt oozing from IV stick site soft tissue swelling concerning for bleeding in the RUE, bruising to RUE -will obtain ultrasound - no signs of compartment syndrome -will check labs, pt, inr -will monitor and reassess palpable radial pulse, sensation intact to RUE, bruising to R forearm will monitor and reassess 10/02/17 01:30 pt with supratherapeutic INR and with bleeding RUE will reverse pt with mechanical valve - will reverse to INR 2.5-3.5 vitamin K and FFP 10/02/17 01:[address] best who accepts pt to service 10/02/17 01:52 pt updated on the plan and agrees to stay <Vivi Doan - Last Filed: 10/02/17 01:53> *DC/Admit/Observation/Transfer - Attestations Scribe Attestion: 10/01/17 23:56 Documentation prepared by Tuan Manzano, acting as medical and health services manager for Vivi Doan DO. <Tuan Manzano - Last Filed: 10/01/17 23:56> - Discharge Dispostion Decision to Admit order: Yes - Attestations Physician Attestion: 10/02/17 01:31 I, Dr. Vivi Doan DO, attest that this document has been prepared under my direction and personally reviewed by me in its entirety. I further attest, that it accurately reflects all work, treatment, procedures and medical decision -making performed by me. <Vivi Doan - Last Filed: 10/02/17 01:53> Diagnosis at time of Disposition: Supratherapeutic INR - Discharge Dispostion Condition at time of disposition: Fair - Referrals Referrals: Vickie Ozuna MD [Primary Care Provider] - - Patient Instructions - Post Discharge Activity
[2017-10-02 00:29] LABS: BASO % 0.9 % (0-2.0); EOS % 1.1 % (0-4.5); HEMATOCRIT 37.1 % (35.4-49); HEMOGLOBIN 12.2 GM/dL (11.7-16.9); LYMPH % 19.1 % (8-40); MCH 29.8 pg (25.7-33.7); MCHC 32.8 g/dl (32.0-35.9); MEAN PLT VOLUME 7.6 fl (7.5-11.1); MONO % 11.7 % (3.8-10.2); NEUT % 67.2 % (42.8-82.8); PLATELET COUNT 304 K/MM3 (134-434); RBC 4.08 M/mm3 (4.00-5.60); RDW 15.3 % (11.9-15.9); WHITE BLOOD COUNT 10.1 K/mm3 (4.0-10.0)
[2017-10-02 01:10] LABS: ALBUMIN 3.5 g/dl (3.4-5.0); ANION GAP 9 (8-16); BLOOD UREA NITROGEN 9 mg/dL (7-18); CALCIUM 8.1 mg/dL (8.5-10.1); CHLORIDE 104 mmol/L (98-107); CO2 27 mmol/L (21-32); CREATININE 0.7 mg/dL (0.7-1.3); GLUCOSE,RANDOM 91 mg/dL (74-106); POTASSIUM 4.1 mmol/L (3.5-5.1); SGOT/AST 25 U/L (15-37); SGPT/ALT 15 U/L (12-78); SODIUM 140 mmol/L (136-145)
[2017-10-02 01:12] LABS: ALK PHOS 52 U/L (45-117); BILIRUBIN,TOTAL 1.1 mg/dL (0.2-1.0); TOT PROT 6.9 g/dl (6.4-8.2)
[2017-10-02 01:15] LABS: PROTHROMBIN TIME (PATIENT) 152.8 SEC (9.7-13.0)
[2017-10-02 01:21] LABS: INR 13.52 (0.82-1.09)
[2017-10-02] MEDS ORDERED: PHYTONADIONE 10 MG/1 ML AMP IVPB ONE (01:25)
[2017-10-02] MEDS ORDERED: PHYTONADIONE 10 MG/1 ML AMP ONE (01:42)
--- NOTE | 2017-10-02 01:57 | HP ---
CHIEF COMPLAINT: supratherapeutic INR PCP: Dr. Vickie Ozuna CT surgeon at [facility]: Dr. 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 Patient states that he is compliant with medications and has maintained therapeutic INR levels of 2.5-3.5 without issue. Patient denies any changes in diet or medications. No recent falls. Denies gum bleeding, hematuria, hematochezia, epistaxis or large bruises. ER course was notable for: (1) INR 13.52 (2) s/p Vit K IV and 1U FFP (3) developed hematuria Recent Travel: none PAST MEDICAL HISTORY: see HPI PAST SURGICAL HISTORY: see HPI Social History: Smoking: never Alcohol: none Drugs: none Family History: Allergies lactose Allergy (Verified 10/01/17 22:26) No Known Drug Allergies Allergy (Verified 10/01/17 22:26) orange Allergy (Mild, Uncoded 10/01/17 22:26) sister cannot recall reaction. HOME MEDICATIONS: Home Medications Medication Instructions Recorded Calcium Carbonate/Vitamin D3 1 each PO HS 07/05/14 [Calcium 600-Vit D3 200 Tablet] Carvedilol [Coreg] 6.25 mg PO DAILY 07/05/14 Folic Acid - 1 mg PO DAILY 07/05/14 Warfarin Sodium [Coumadin] 10 mg PO HS 07/05/14 Aspirin [ASA -] 81 mg PO DAILY 12/26/14 Famotidine 40 mg PO DAILY 12/26/14 Carvedilol [Coreg -] 3.125 mg PO DAILY 01/20/17 predniSONE [Deltasone -] 5 mg PO DAILY 01/20/17 Benztropine Mesylate 0.5 mg PO HS 04/06/17 Propranolol HCl 10 mg PO BID 04/06/17 Azathioprine [Imuran -] 125 mg PO DAILY tablet 04/12/17 REVIEW OF SYSTEMS CONSTITUTIONAL: Absent: fever, chills, diaphoresis, generalized weakness, malaise, loss of appetite, weight change HEENT: Absent: rhinorrhea, nasal congestion, throat pain, throat swelling, difficulty swallowing, mouth swelling, ear pain, eye pain, visual changes CARDIOVASCULAR: Absent: chest pain, syncope, palpitations, irregular heart rate, lightheadedness , peripheral edema RESPIRATORY: Absent: cough, shortness of breath, dyspnea with exertion, orthopnea, wheezing, stridor, hemoptysis GASTROINTESTINAL: Absent: abdominal pain, abdominal distension, nausea, vomiting, diarrhea, constipation, melena, hematochezia GENITOURINARY: Absent: dysuria, frequency, urgency, hesitancy, hematuria, flank pain, genital pain MUSCULOSKELETAL: Absent: myalgia, arthralgia, joint swelling, back pain, neck pain SKIN: Absent: rash, itching, pallor HEMATOLOGIC/IMMUNOLOGIC: Absent: easy bleeding, easy bruising, lymphadenopathy, frequent infections ENDOCRINE: Absent: unexplained weight gain, unexplained weight loss, heat intolerance, cold intolerance NEUROLOGIC: Absent: headache, focal weakness or paresthesias, dizziness, unsteady gait, seizure, mental status changes, bladder or bowel incontinence PSYCHIATRIC: Absent: anxiety, depression, suicidal or homicidal ideation, hallucinations. PHYSICAL EXAMINATION Vital Signs - 24 hr 10/01/17 22:26 Temperature 97.8 F Pulse Rate 80 Respiratory 20 Rate Blood Pressure 149/68 O2 Sat by Pulse 100 Oximetry (%) GENERAL: aaox3, nad HEENT: PERRL, EOMI, sclera anicteric, conjunctiva clear, oropharynx clear without exudates, MMM, no gingivial bleeding NECK: supple, no cervical LAD LUNGS: CTAB HEART: rrr, normal s1/s2, +mechanical click in Ao region, no JVD, +sternotomy scars ABDOMEN: soft, NTND UPPER EXTREMITIES: 2+ radial pulses symmetric bilaterally, R forearm - firm, swollen, and ttp, distal sensation and MS strength 3/5 in wrist/digits (though limited by pain), 6x4cm ecchymosis on medial/dorsal forearm LOWER EXTREMITIES: 1+ DP pulses, wwp, no edema NEUROLOGICAL: Cranial nerves II-XII intact. Normal speech SKIN: Warm, dry, normal turgor, above noted R forearm ecchymosis, striae scattered throughout CBC, BMP 10/02/17 00:17 10/02/17 00:17 Hepatic Panel Total Bilirubin 1.1 mg/dL (0.2-1.0) H 10/02/17 00:17 AST 25 U/L (15-37) D 10/02/17 00:17 ALT 15 U/L (12-78) D 10/02/17 00:17 Alkaline Phosphatase 52 U/L (45-117) 10/02/17 00:17 Albumin 3.5 g/dl (3.4-5.0) 10/02/17 00:17 Medications Medication Instructions Recorded Confirmed Type Calcium Carbonate/Vitamin D3 1 each PO HS 07/05/14 10/02/17 History [Calcium 600-Vit D3 200 Tablet] Carvedilol [Coreg] 6.25 mg PO DAILY 07/05/14 10/02/17 History Folic Acid - 1 mg PO DAILY 07/05/14 10/02/17 History Warfarin Sodium [Coumadin] 10 mg PO HS 07/05/14 10/02/17 History Aspirin [ASA -] 81 mg PO DAILY 12/26/14 10/02/17 History Famotidine 40 mg PO DAILY 12/26/14 10/02/17 History Carvedilol [Coreg -] 3.125 mg PO DAILY 01/20/17 10/02/17 History predniSONE [Deltasone -] 5 mg PO DAILY 01/20/17 10/02/17 History Benztropine Mesylate 0.5 mg PO HS 04/06/17 10/02/17 History Propranolol HCl 10 mg PO BID 04/06/17 10/02/17 History Azathioprine [Imuran -] 125 mg PO DAILY tablet 04/12/17 10/02/17 Rx INR, PTT INR 13.52 (0.82-1.09) H* 10/02/17 00:17 CXR: cardiomegaly, small L pleural effusion and infiltrate RUE U/S: preliminary report - no RUE DVT ASSESSMENT/PLAN: 37yo man with PMH of HTN, 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 #supratherapeutic INR -s/p Vit K IV -2U x FFP (s/p 1U in ED) -Hold Coumadin and recheck INR in AM #R distal arm swelling, concern for hematoma developing and possible compartment syndrome -Vascular checks Q2H -reversal INR as above -warm compresses and arm elevation #hematuria, H&H stable -Trend H&H #HTN -c/w home meds -Med Rec with patient's pharmacy #Takayasu's arteritis - c/w home Prednisone 5mg qd and Azathioprine 125mg qd #TAA repairs - c/w ASA #FEN PO intake lytes wnl Na controlled diet #PPX - SCDs- no anticoagulation; c/w home Famotidine #DISPO: obs m/s FULL code d/w Dr. James Garsia MD PGY1 - Internal Medicine, Night Assistant Finance Director Visit type - Emergency Visit Emergency Visit: Yes ED Registration Date: 10/02/17 Care time: The patient presented to the Emergency Department on the above date and was hospitalized for further evaluation of their emergent condition. - New Patient This patient is new to me today: Yes Date on this admission: 10/02/17 - Critical Care Critical Care patient: No Hospitalist Screening - Colonoscopy Questionnaire Colonoscopy Questionnaire: Colonoscopy Questionnaire - Patient: 50 - 75 years old and never had a screening colonoscopy: No History of colon or rectal polyps, or CA: Unknown History of IBD, Crohn's disease or UC: Unknown History of abdominal radiation therapy as a child: Unknown - Relative: 1 with colon or rectal CA, or polyps at age 60 or younger: Unknown Colon or rectal CA diagnosed at age 45 or younger: Unknown Multiple relatives with colon or rectal CA: Unknown - Outcome: Screening Result: Negative Screen
[2017-10-02] MEDS ORDERED: oxyCODONE HCL 5 MG TABLET PO PRN (02:54)
[2017-10-02] MEDS ORDERED: ACETAMINOPHEN 325 MG TABLET (FP) PO PRN (02:54)
[2017-10-02] MEDS ORDERED: ACETAMINOPHEN 325 MG TABLET (FP) ONE (02:55)
[2017-10-02] MEDS ORDERED: oxyCODONE HCL 5 MG TABLET ONE (03:43)
[2017-10-02] MEDS ORDERED: ONDANSETRON 4 MG/2 ML VIAL ONE (04:11)
--- NOTE | 2017-10-02 05:08 | PN ---
Teaching Attending Note Name of Resident: Jovana Garsia ATTENDING PHYSICIAN STATEMENT I saw and evaluated the patient. Chart, data, imaging reviewed. I reviewed the resident's note and discussed the case with the resident. I agree with the resident's findings and plan as documented. SUBJECTIVE: 37yo man with PMH of HTN, Takayasu's arteritis (on chronic steroids), TAA s/p repair x 3 (last 2013 [facility]), AVR mechanical valve on Coumadin sent from clinic to ER after he was found to have elevated INR and continuous bleeding after skin prick. He denied any other bleeding that he noticed including in urine and stool. He denied any changes in his medications or in his coumadin dosage. OBJECTIVE: Last Vital Signs Temp Pulse Resp BP Pulse Ox 97.8 F 80 20 149/68 100 10/01/17 22:26 10/01/17 22:26 10/01/17 22:26 10/01/17 22:26 10/01/17 22:26 general -nad, aaox3 heent - at, nc, moist oral mucosa, no scleral pallor neck -supple, no masses cv-s1+s2+rrr, systolic murmur over aortic valve chest- cta b/l abdomen- soft, nt, no masses skin - multiple striae seen, ecchymosis on right upper extremity Abnormal Lab Results 10/02/17 10/02/17 10/02/17 00:17 00:17 00:17 WBC 10.1 H Monocytes % 11.7 H PT with INR 152.80 H INR 13.52 H* PTT (Actin FS) 131.0 H D Calcium 8.1 L Total Bilirubin 1.1 H cxr - reviewed ASSESSMENT AND PLAN: #37yo steroid dependent man with elevated INR -13, from excessive coumadin use. Patient had bleeding from right upper extremity after skin prick. Bleeding is now controlled. -observation -s/p 5mg vitamin k -administer 2 units FFP -repeat PT, PTT in am -monitor for signs of bleeding -hold coumadin for now #takayatsu arteritis -continue prednisone and azathioprine -hold ASA for now as pt was bleeding #DVT ppx -SCDs b/l -
[2017-10-02 05:49] VITALS: BMI 26.5
[2017-10-02 07:15] LABS: HEMATOCRIT 36.5 % (35.4-49); HEMOGLOBIN 12.3 GM/dL (11.7-16.9); MCH 30.8 pg (25.7-33.7); MCHC 33.8 g/dl (32.0-35.9); MEAN PLT VOLUME 7.8 fl (7.5-11.1); PLATELET COUNT 275 K/MM3 (134-434); RBC 4.01 M/mm3 (4.00-5.60); RDW 15.3 % (11.9-15.9); WHITE BLOOD COUNT 10.3 K/mm3 (4.0-10.0)
[2017-10-02 07:40] LABS: INR 2.24 (0.82-1.09); PROTHROMBIN TIME (PATIENT) 25.3 SEC (9.7-13.0)
[2017-10-02 08:12] LABS: CHLORIDE 103 mmol/L (98-107); POTASSIUM 3.6 mmol/L (3.5-5.1); SODIUM 140 mmol/L (136-145)
[2017-10-02 08:15] LABS: ANION GAP 8 (8-16); BLOOD UREA NITROGEN 9 mg/dL (7-18); CALCIUM 8.4 mg/dL (8.5-10.1); CO2 29 mmol/L (21-32); CREATININE 0.7 mg/dL (0.7-1.3); GLUCOSE,RANDOM 82 mg/dL (74-106)
[2017-10-02] MEDS: RANITIDINE HCL 150 MG TABLET (FP) PO SCH (09:42)
[2017-10-02] MEDS: FOLIC ACID 1 MG TABLET (FP) PO SCH (09:42)
[2017-10-02] MEDS: predniSONE 5 MG TABLET (UD) PO SCH (09:42)
[2017-10-02] MEDS: ASPIRIN 81 MG CHEWABLE TABLETS PO SCH (09:43)
[2017-10-02] MEDS ORDERED: CARVEDILOL 12.5 MG TABLET (FP) PO SCH (10:00)
[2017-10-02] MEDS ORDERED: HEPARIN NA (PORCINE) 5,000 UNITS/ML 1ML VIAL IVPUSH PRN ×4 (10:02→13:08)
[2017-10-02] MEDS ORDERED: HEPARIN INFUSION - 25,000 UNITS/500 ML INFUS.BAG IVPB SCH (10:15)
--- NOTE | 2017-10-02 10:30 | EKG ---
Test Reason : Blood Pressure : / mmHG Vent. Rate : 073 BPM Atrial Rate : 073 BPM P-R Int : 152 ms QRS Dur : 100 ms QT Int : 380 ms P-R-T Axes : 062 022 029 degrees QTc Int : 418 ms NORMAL SINUS RHYTHM VOLTAGE CRITERIA FOR LEFT VENTRICULAR HYPERTROPHY ABNORMAL ECG WHEN COMPARED WITH ECG OF 06-APR-2017 07:57, NONSPECIFIC T WAVE ABNORMALITY HAS REPLACED INVERTED T WAVES IN INFERIOR LEADS Confirmed by CARLOS REYES, JOSE ([id number]) on 10/02/2017 10:29:36 AM Referred By: Confirmed By:JOSE GONZALEZ MD
--- NOTE | 2017-10-02 10:32 | CON.CARD ---
Consult Consult Specialty:: cardiology - History of Present Illness History of Present Illness: The patient is a 37 year old black male with a past medical history of Takayasus arteritis, AAA x3, aortic root replacement, aortic valve replacement ( now with a metallic valve), and depression who presents to the emergency department with ecchymosis today. The patient reports that he took his daily dose of coumadin today even though his primary doctor told him not to. Today the patient had blood taken to measure his INR levels and the wound made but the needle is still bleeding. He notes associated spontaneous bruising and bilateral lower extremity swelling and tenderness. He denies any recent changes in diet, hematuria, hematochezia, epistaxis, or bloody gums. Pt was reportedly given ?Vitamin K for elevated INR; the INR is now 2.2. - History Source History Provided By: Patient, Medical Record Limitations to Obtaining History: No Limitations - Past Medical History Cardio/Vascular: Yes: Aneurysm (AAA x2 repair) Psych: Yes: Depression, Schizophrenia Rheumatology: Yes: Vasculitis (Takayasu's Arteritis) - Past Surgical History Past Surgical History: Yes: AAA Repair, Hernia Repair, Valve Replacement ( metallic aortic valve) - Alcohol/Substance Use Hx Alcohol Use: No History of Substance Use: reports: None - Smoking History Smoking history: Never smoked Have you smoked in the past 12 months: No Aproximately how many cigarettes per day: 0 - Social History ADL: Independent Occupation: not working History of Recent Travel: No Home Medications - Allergies Allergies/Adverse Reactions: Allergies Allergy/AdvReac Type Severity Reaction Status Date / Time lactose Allergy Verified 10/01/17 22:26 No Known Drug Allergies Allergy Verified 10/01/17 22:26 orange Allergy Mild Uncoded 10/01/17 22:26 - Home Medications Home Medications: Ambulatory Orders Calcium Carbonate/Vitamin D3 [Calcium 600-Vit D3 200 Tablet] 1 each PO HS Carvedilol [Coreg] 6.25 mg PO DAILY 07/05/14 Folic Acid - 1 mg PO DAILY 07/05/14 Warfarin Sodium [Coumadin] 10 mg PO HS 07/05/14 Aspirin [ASA -] 81 mg PO DAILY 12/26/14 Famotidine 40 mg PO DAILY 12/26/14 Carvedilol [Coreg -] 3.125 mg PO DAILY 01/20/17 predniSONE [Deltasone -] 5 mg PO DAILY 01/20/17 Benztropine Mesylate 0.5 mg PO HS 04/06/17 Propranolol HCl 10 mg PO BID 04/06/17 Azathioprine [Imuran -] 125 mg PO DAILY tablet 04/12/17 Family Disease History - Family Disease History Family Disease History: Diabetes: Mother, Heart Disease: Father (VT, HTN) Review of Systems - Review of Systems Constitutional: reports: No Symptoms Eyes: reports: No Symptoms HENT: reports: Other (ecchymosis) Neck: reports: No Symptoms Cardiovascular: reports: No Symptoms Respiratory: reports: No Symptoms Gastrointestinal: reports: No Symptoms Genitourinary: reports: No Symptoms Breasts: reports: No Symptoms Reported Musculoskeletal: reports: No Symptoms Integumentary: reports: Other (eccymosis from venipuncture) Endocrine: reports: No Symptoms Hematology/Lymphatic: reports: Excessive Bleeding Psychiatric: reports: Depression, Other (schizophrenia) - Risk Factors Known Risk Factors: Yes: Age, Gender, Hypercholesterolemia, Hypertension, Physical Inactivity, Race, Other (Takayasu's arteritis-->extensive cardiac vascular and valvular surgery) Vital Signs: Vital Signs Temperature 98.3 F 10/02/17 02:14 Pulse Rate 79 10/02/17 02:14 Respiratory Rate 20 10/02/17 02:14 Blood Pressure 153/72 10/02/17 02:14 O2 Sat by Pulse Oximetry (%) 95 10/02/17 02:14 Constitutional: Yes: Calm Eyes: Yes: WNL HENT: Yes: WNL Neck: Yes: WNL Respiratory: Yes: WNL Gastrointestinal: Yes: Soft Renal/: No: Anuria JVD: No Carotid Bruit: No PMI: Displaced Heart Sounds: Yes: S1, S2, S4 Murmur: Yes: Systolic Murmur, Grade 2 Musculoskeletal: Yes: Muscle Weakness Extremities: Yes: Other (pt's right hand and wrist were initially weak (and difficult to open fingers), but he has regained strength since admission) Edema: No Peripheral Pulses WNL: Yes Integumentary: Yes: WNL Neurological: Yes: WNL ...Motor Strength: WNL Psychiatric: Yes: WNL - Other Data Labs, Other Data: CBC, BMP 10/02/17 05:48 10/02/17 05:48 INR, PTT INR 2.24 (0.82-1.09) H D 10/02/17 05:48 Ejection Fraction %: LVEF > or = 40 % Problem List - Problems (1) Right arm weakness Code(s): R29.898 - [facility] SYMPTOMS AND SIGNS INVOLVING THE MUSCULOSKELETAL SYSTEM (2) Status post mechanical aortic valve replacement Code(s): Z95.2 - PRESENCE OF PROSTHETIC HEART VALVE (3) Takayasu's arteritis Code(s): M31.4 - AORTIC ARCH SYNDROME [TAKAYASU] (4) Subtherapeutic international normalized ratio (INR) Assessment/Plan: On warfarin; start IV heparin until INR is 2.5-3.5 (ideaaly on the lower range of efficacy in order to minimize bleeding risk). Code(s): R79.1 - ABNORMAL COAGULATION PROFILE
--- NOTE | 2017-10-02 14:07 | PN ---
Teaching Attending Note Name of Resident: Jess Rocha ATTENDING PHYSICIAN STATEMENT I saw and evaluated the patient. I reviewed the resident's note and discussed the case with the resident. I agree with the resident's findings and plan as documented. SUBJECTIVE: No fever or chills, no CP or SOB. has no abd pain. has pain in R fore arm. OBJECTIVE: NAD , AAOx3 no facial droop. MMM CV: RRR, 3/6 DM at RUSB and LLSB. Abd: soft, NT, N d, NL Bs Skin: striae all over body Ext: no edema or erythema over LE . radial pulse , fem pulse and DP pulse 2+ b/ l R for arm with increased circumference and bruising. 2+ radial pule b/l. R wrist flexion 4/5 compared to 5/5 on L . decreased ability to expand fingers. nl sensation on hand and fore arm. decreased ability to make a fist on R.( per patient started last evening ) . skin surrounding R forearm is not tense ASSESSMENT AND PLAN: 37 y/o man with h/o Takayasu 's, HTN, Thoracic aortic aneurysm repair, mechanical aortic valve replacement , who presented with R arm bleeding after blood draw, and was found ot have R forearm hematoma and coumadin coagulopathy. 1- RUE hematoma: due to supratherapeutic INR. - nl radial pulse - neurological findings raise concern for compartment syndrome but pulse is intact and no sensory deficits. Also pain might be restricting movement. - CTA ordered - Dr. bush consulted and called - Serial exam 2- Mechanicla aortic valve : INR 2.2 - per pt his goal 2.5-3. - concern for R forearm bleed - consult dr. bailey for guidance on AC. - might start heparin gtt , if safe from vascular standpoint - follow INR. resume coumadin in evening 3- h/o HTN:cont meds 4- Takayasu's ; - cont predniosne and azathioprin dispo : OC
--- NOTE | 2017-10-02 14:18 | PN ---
Physical Exam: SUBJECTIVE: Patient seen and examined at bedside. As per pt, yesterday morning he saw his PMD and experienced bruising and increased bleeding with blood draw site on RUE. Pt was told to hold PM coumadin dose (10mg), however he forgot and still took it. Pt subsequently developed increased bleeding from the site and called 911. This AM, pt with decreased motor strength in upper extremity. Currently, pt states that it has improved. Denies CARBAJAL, fever, chills, SOB, chest pain or pressure, or changes in urinary or bowel function. OBJECTIVE: Vital Signs Period Temp Pulse Resp BP Sys/Tucker Pulse Ox Last 24 Hr 97.5 F-98.3 F 77-80 18-20 110-153/58-72 95-100 GENERAL: The patient is sitting up in bed. awake, alert, and fully oriented, in no acute distress. HEAD: Normal with no signs of trauma. without facial asymmetry EYES: PERRL, extraocular movements intact, sclera anicteric, conjunctiva clear. ENT: Ears normal, nares patent, oropharynx clear without exudates, moist mucous membranes. NECK: Trachea midline, supple. LUNGS: Breath sounds equal, clear to auscultation bilaterally, no wheezes, no crackles, no accessory muscle use. HEART: Loud S1, S2 without murmur, rub or gallop. +diastolic murmur L sternal border CHEST: +linear sternotomy scar ABDOMEN: Soft, nontender, nondistended, normoactive bowel sounds, no guarding, no rebound, no hepatosplenomegaly, no masses. UPPER EXTREMITIES: +RUE ecchymoses - inferior forearm, diffusely TTP. + decreased motor strength - radial n distribution LOWER EXTREMITIES: 2+ dorsalis pedis pulses, warm, without edema NEUROLOGICAL: Cranial nerves II through XII grossly intact. Normal speech, gait not observed. PSYCH: Normal mood, normal affect. SKIN: Warm, dry, normal turgor Laboratory Results - last 24 hr 10/02/17 10/02/17 10/02/17 00:17 00:17 00:17 WBC 10.1 H RBC 4.08 Hgb 12.2 D Hct 37.1 D MCV 91.0 MCH 29.8 MCHC 32.8 RDW 15.3 Plt Count 304 MPV 7.6 Neutrophils % 67.2 Lymphocytes % 19.1 D Monocytes % 11.7 H Eosinophils % 1.1 Basophils % 0.9 PT with INR 152.80 H INR 13.52 H* PTT (Actin FS) 131.0 H D Sodium 140 Potassium 4.1 Chloride 104 Carbon Dioxide 27 Anion Gap 9 BUN 9 D Creatinine 0.7 Creat Clearance w eGFR > 60 Random Glucose 91 Calcium 8.1 L Total Bilirubin 1.1 H AST 25 D ALT 15 D Alkaline Phosphatase 52 Total Protein 6.9 Albumin 3.5 Blood Type 10/02/17 10/02/17 10/02/17 00:17 05:48 05:48 WBC 10.3 H RBC 4.01 Hgb 12.3 Hct 36.5 MCV 91.0 MCH 30.8 MCHC 33.8 RDW 15.3 Plt Count 275 MPV 7.8 Basophils % PT with INR 25.30 H INR 2.24 H D Total Protein Albumin Blood Type A POSITIVE Antibody Screen Negative 10/02/17 05:48 Eosinophils % PTT (Actin FS) Sodium 140 Potassium 3.6 Chloride 103 Carbon Dioxide 29 Anion Gap 8 BUN 9 Creatinine 0.7 Creat Clearance w eGFR Random Glucose 82 Calcium 8.4 L Albumin Antibody Screen Active Medications Generic Name Dose Route Start Last Admin Trade Name Freq PRN Reason Stop Dose Admin Acetaminophen 650 mg 10/02/17 02:54 10/02/17 03:11 Tylenol - PO 650 mg Q4H PRN Administration PAIN LEVEL 1-5 Aspirin 81 mg 10/02/17 10:00 10/02/17 09:43 Asa - PO Not Given DAILY [facility] Azathioprine 125 mg 10/02/17 10:00 Imuran - PO DAILY [facility] Benztropine Mesylate 0.5 mg 10/02/17 22:00 Cogentin - PO HS [facility]INA Calcium Carbonate/Cholecalciferol 1 tab 10/02/17 22:00 Os-Carlos 500+D - PO HS ADINA Carvedilol 6.25 mg 10/02/17 10:00 Coreg - PO DAILY ADINA Folic Acid 1 mg 10/02/17 10:00 10/02/17 09:42 Folic Acid - PO 1 mg DAILY ADINA Administration Heparin Sodium (Porcine) 1,000 unit 10/02/17 13:08 Heparin - IVPUSH PRN PRN Heparin Heparin Sodium (Porcine) 5,000 unit 10/02/17 13:08 Heparin - IVPUSH PRN PRN Heparin HEPARIN SOD,PORK IN 0.45% NACL 25,000 units in 500 mls @ 20 mls/hr 10/02/17 13 :15 Heparin-1/2ns 25,000 Units/500 IVPB TITR ADINA Protocol 1,000 UNIT/HR Oxycodone HCl 5 mg 10/02/17 02:54 10/02/17 03:42 Roxicodone - PO 5 mg Q4H PRN Administration PAIN LEVEL 6-10 Prednisone 5 mg 10/02/17 10:00 10/02/17 09:42 Deltasone - PO 5 mg DAILY ADINA Administration Propranolol HCl 10 mg 10/02/17 10:00 10/02/17 09:42 Inderal - PO 10 mg BID ADINA Administration Ranitidine HCl 300 mg 10/02/17 10:00 10/02/17 09:42 Zantac - PO 300 mg DAILY [facility] Administration Warfarin Sodium 10 mg 10/02/17 18:00 Coumadin - PO DAILY@1800 [facility] IMAG[facility] 10/01/17: Duplex scan RUE: there is no evidence of DVT in RUE. 10/02/17: CXR: prominent mediastinum. previous open heart surgery; sternotomy with valve replacement. new left pulmonary and pleural changes. old left rib trauma. 10/02/17: Upper extremity CTA: no pseudoaneurysm or active extravasation of contrast, no active bleeding, no IM hematoma ASSESSMENT/PLAN: 37 y/o M with PMH HTN, Takayasu's arteritis (on prednisone, azathioprine), thoracic abdominal aneurysm repair x 2 (last time 2013; [facility]), mechanical aortic valve replacement 2013 (has been on coumadin 10mg since; goal 2.5-3 as per pt), who was found to have supratherapeutic INR. #Supratherapeutic INR 2/2 ?infection, ?increased dosage -Pt with initial INR 13.52, repeat level 2.24 -received aquamephyton (vit K IV) x1 for reversal, FFP x 2 in ED -as per pharmacy, less likely occurred via medication side effect- propranolol with minor side effect -Starting on hep gtt, cleared by vascular. To bridge with coumadin 10mg PO qd starting tonight -F/u stat INR, as well as tomorrow's INR -Cardio- Dr. Mora -F/u goal INR as per cardio. with aortic valve replacement, as per pt 2.5-3 #RUE hematoma 2/2 supratherapeutic INR -Evaluated by vascular, less likely compartment syndrome -continue pulse checks, pain may be 2/2 hematoma compressing on nerve -F/u neuro evaluation, as with change in motor strength, radial n distribution -RUE CTA- no pseudoaneurysm, or active extravasation of contrast, no active bleeding, no IM hematoma -Neuro- Dr. Morataya -Surgery consult- Dr. Huffman; pt seen, marimar done no active intervention needed. #Takayasu's arteritis -Continue prednisone 5mg PO qd -Azathioprine 125mg PO qd #HTN-uncontrolled ; likely 2/2 pain -Coreg 6.25, 3.125 mg PO qd -propranolol 10mg PO BID -have been verified with pt's pharmacy #F/E/N -no IVF at this time -continue to follow lytes -sodium controlled diet #PPX -DVT: on hep gtt, will be bridged with coumadin this evening -GI: zantac 300mg PO qd #Dispo continued med-surg monitoring will continue with neuro eval for RUE motor strength deficit Visit type - Emergency Visit Emergency Visit: No - New Patient This patient is new to me today: Yes Date on this admission: 10/02/17 - Critical Care Critical Care patient: No
--- NOTE | 2017-10-02 14:38 | PN ---
Progress Note (short form) - Note Progress Note: VAscular Surgery Pt seen and examined. Came to examine right arm. Palpable axillary, brachial and radial pulses. Pt having pain when he opens and closes his hands. Also there is a decrease in muscle strength in right hand. Rec neurology and hand surgery eval. No need for any vascular intervention at this time. Deion Erwin DO
[2017-10-02] MEDS: HEPARIN SOD,PORK IN 0.45% NACL 25,000 UNITS/500 ML INFUS.BAG IVPB SCH (16:16)
[2017-10-02] MEDS: azaTHIOprine 50 MG TABLET PO SCH (16:17)
[2017-10-02] MEDS: WARFARIN NA 10 MG TABLET (FP) PO SCH (19:24)
[2017-10-02] MEDS: CALCIUM 500MG/VIT-D 200 UNITS COMBO TABLET (FP) PO SCH (21:29)
[2017-10-02] MEDS: BENZTROPINE MESYLATE 0.5 MG TABLET (FP) PO SCH (21:30)
[2017-10-02 23:04] LABS: INR 1.43 (0.82-1.09); PROTHROMBIN TIME (PATIENT) 16.2 SEC (9.7-13.0)
[2017-10-03 07:25] LABS: BASO % 0.5 % (0-2.0); EOS % 1.7 % (0-4.5); HEMATOCRIT 35.7 % (35.4-49); HEMOGLOBIN 12.2 GM/dL (11.7-16.9); MCH 31.1 pg (25.7-33.7); MCHC 34.2 g/dl (32.0-35.9); MEAN CELL VOLUME 91.1 fl (80-96); MEAN PLT VOLUME 7.4 fl (7.5-11.1); MONO % 10.1 % (3.8-10.2); NEUT % 65.7 % (42.8-82.8); PLATELET COUNT 261 K/MM3 (134-434); RBC 3.92 M/mm3 (4.00-5.60); RDW 15.3 % (11.9-15.9)
[2017-10-03 07:58] LABS: INR 1.53 (0.82-1.09); PROTHROMBIN TIME (PATIENT) 17.3 SEC (9.7-13.0)
[2017-10-03 08:31] LABS: ANION GAP 5 (8-16); BLOOD UREA NITROGEN 12 mg/dL (7-18); CALCIUM 8.3 mg/dL (8.5-10.1); CHLORIDE 104 mmol/L (98-107); CO2 29 mmol/L (21-32); CREATININE 0.8 mg/dL (0.7-1.3); GLUCOSE,RANDOM 88 mg/dL (74-106); POTASSIUM 3.8 mmol/L (3.5-5.1); SODIUM 138 mmol/L (136-145)
[2017-10-03] MEDS: predniSONE 5 MG TABLET (UD) PO SCH (10:16)
[2017-10-03] MEDS: RANITIDINE HCL 150 MG TABLET (FP) PO SCH (10:16)
[2017-10-03] MEDS: ASPIRIN 81 MG CHEWABLE TABLETS PO SCH (10:16)
[2017-10-03] MEDS: FOLIC ACID 1 MG TABLET (FP) PO SCH (10:16)
[2017-10-03] MEDS ORDERED: PT OWN MED DRAWER 7, Y5N ONE ×3 (10:17→21:09)
[2017-10-03] MEDS: azaTHIOprine 50 MG TABLET PO SCH (10:19)
--- NOTE | 2017-10-03 13:12 | PN ---
Physical Exam: SUBJECTIVE: Patient seen and examined at bedside. No acute events overnight; pt received coumadin dose and continued on hep gtt. This AM, pt resting comfortably. States that his RUE "feels better," and that he has improved ROM. Denies CARBAJAL, fever, chills, SOB, or changes in urinary or bowel function. Without melena, hematochezia, or hematemesis. OBJECTIVE: Vital Signs Period Temp Pulse Resp BP Sys/Tucker Pulse Ox Last 24 Hr 97.5 F-98.6 F 72-80 18-18 110-140/58-70 96-96 GENERAL: The patient is resting in bed. awake, alert, and fully oriented, in no acute distress. HEAD: Normal with no signs of trauma. without facial asymmetry EYES: PERRL, extraocular movements intact, sclera anicteric, conjunctiva clear. ENT: Ears normal, nares patent, oropharynx clear without exudates, moist mucous membranes. NECK: Trachea midline, supple. LUNGS: Breath sounds equal, clear to auscultation bilaterally, no wheezes, no crackles, no accessory muscle use. HEART: Loud S1, S2 without murmur, rub or gallop. +diastolic murmur L sternal border CHEST: +linear pigmented scar ABDOMEN: Soft, nontender, nondistended, normoactive bowel sounds, no guarding, no rebound, no hepatosplenomegaly, no masses. UPPER EXTREMITIES: +atrophy/wasting b/l. +RUE with improved inferior ecchymoses -without TTP today. 5/5 wrist extension, 5/5 wrist flexion, 2/5 finger abduction and adduction LOWER EXTREMITIES: 2+ dorsalis pedis pulses, warm, without edema NEUROLOGICAL: Cranial nerves II through XII grossly intact. Normal speech, gait not observed. PSYCH: Normal mood, normal affect. SKIN: Warm, dry, normal turgor Laboratory Results - last 24 hr 10/02/17 10/02/17 10/02/17 06:00 22:00 22:00 PT with INR 16.20 H INR 1.43 H D PTT (Actin FS) 47.9 H D Hemoglobin A1c % 5.8 Calcium 10/03/17 10/03/17 10/03/17 06:00 06:00 06:00 WBC 9.0 RBC 3.92 L Hgb 12.2 Hct 35.7 MCV 91.1 MCH 31.1 MCHC 34.2 RDW 15.3 Plt Count 261 MPV 7.4 L Neutrophils % 65.7 Lymphocytes % 22.0 Monocytes % 10.1 Eosinophils % 1.7 Basophils % 0.5 PT with INR 17.30 H INR 1.53 H PTT (Actin FS) Sodium 138 Potassium 3.8 Chloride 104 Carbon Dioxide 29 Anion Gap 5 L BUN 12 D Creatinine 0.8 Random Glucose 88 Calcium 8.3 L 10/03/17 06:00 PTT (Actin FS) 106.3 H D Active Medications Generic Name Dose Route Start Last Admin Trade Name Freq PRN Reason Stop Dose Admin Acetaminophen 650 mg 10/02/17 02:54 10/02/17 03:11 Tylenol - PO 650 mg Q4H PRN Administration PAIN LEVEL 1-5 Aspirin 81 mg 10/02/17 10:00 10/03/17 10:16 Asa - PO 81 mg DAILY ADINA Administration Azathioprine 125 mg 10/02/17 10:00 10/03/17 10:19 Imuran - PO 125 mg DAILY ADINA Administration Benztropine Mesylate 0.5 mg 10/02/17 22:00 10/02/17 21:30 Cogentin - PO 0.5 mg HS [facility] Administration Calcium Carbonate/Cholecalciferol 1 tab 10/02/17 22:00 10/02/17 21:29 Os-Carlos 500+D - PO 1 tab HS [facility] Administration Carvedilol 6.25 mg 10/02/17 10:00 Coreg - PO DAILY ADINA Folic Acid 1 mg 10/02/17 10:00 10/03/17 10:16 Folic Acid - PO 1 mg DAILY ADINA Administration Heparin Sodium (Porcine) 1,000 unit 10/02/17 13:08 10/03/17 00:51 Heparin - IVPUSH 1,000 unit PRN PRN Administration Heparin Heparin Sodium (Porcine) 5,000 unit 10/02/17 13:08 Heparin - IVPUSH PRN PRN Heparin HEPARIN SOD,PORK IN 0.45% NACL 25,000 units in 500 mls @ 20 mls/hr 10/02/17 13 :15 10/03/17 10:16 Heparin-1/2ns 25,000 Units/500 IVPB 950 unit/hr TITR ADINA 19 mls/hr Protocol Titration 1,000 UNIT/HR Oxycodone HCl 5 mg 10/02/17 02:54 10/02/17 03:42 Roxicodone - PO 5 mg Q4H PRN Administration PAIN LEVEL 6-10 Prednisone 5 mg 10/02/17 10:00 10/03/17 10:16 Deltasone - PO 5 mg DAILY ADINA Administration Propranolol HCl 10 mg 10/02/17 10:00 10/03/17 10:16 Inderal - PO 10 mg BID ADINA Administration Ranitidine HCl 300 mg 10/02/17 10:00 10/03/17 10:16 Zantac - PO 300 mg DAILY ADINA Administration Warfarin Sodium 10 mg 10/02/17 18:00 10/02/17 19:24 Coumadin - PO 10 mg DAILY@1800 ADINA Administration IMAGING 10/01/17: Duplex scan RUE: there is no evidence of DVT in RUE. 10/02/17: CXR: prominent mediastinum. previous open heart surgery; sternotomy with valve replacement. new left pulmonary and pleural changes. old left rib trauma. 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 #Supratherapeutic INR (13.52) 2/2 ?infection, ?increased dosage -Current INR 1.53- subtherapeutic. PTT 106. -received aquamephyton (vit K IV) x1 for reversal, FFP x 2 in ED -as per pharmacy, less likely occurred via medication side effect- propranolol with minor side effect -Started on hep gtt, cleared by vascular. Currently bridging with coumadin 10mg PO qd (Day 2) -Continue to follow INR, goal 2.5-3 -Cardio- Dr. Mora #RUE hematoma 2/2 supratherapeutic INR -Evaluated by vascular, less likely compartment syndrome -Surgery consult- Dr. Huffman; pt seen, marimar done no active intervention needed. -continue pulse checks, pain may be 2/2 hematoma compressing on nerve -RUE CTA- no pseudoaneurysm, or active extravasation of contrast, no active bleeding, no IM hematoma -Neuro- Dr. Hart -F/u head CT to r/o stroke. pending #Takayasu's arteritis -Continue prednisone 5mg PO qd -Azathioprine 125mg PO qd #HTN-uncontrolled ; likely 2/2 pain -Coreg 6.25, 3.125 mg PO qd -propranolol 10mg PO BID -have been verified with pt's pharmacy #F/E/N -no IVF at this time -continue to follow lytes -sodium controlled diet #PPX -DVT: on hep gtt, currently bridging with coumadin (Day2) -GI: zantac 300mg PO qd #Dispo continued med-surg monitoring Visit type - Emergency Visit Emergency Visit: No - New Patient This patient is new to me today: No - Critical Care Critical Care patient: No
--- NOTE | 2017-10-03 13:56 | CON.NEURO ---
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 Now complains of weakness and pain and swelling in right forearm and hand. - History Source History Provided By: Patient, Medical Record Limitations to Obtaining History: No Limitations - Past Medical History Cardio/Vascular: Yes: Aneurysm (AAA x2 repair) Psych: Yes: Depression, Schizophrenia Rheumatology: Yes: Vasculitis (Takayasu's Arteritis) - Past Surgical History Past Surgical History: Yes: Hernia Repair, Valve Replacement (aortic) - Alcohol/Substance Use Hx Alcohol Use: No History of Substance Use: reports: None - Smoking History Smoking history: Never smoked Have you smoked in the past 12 months: No Aproximately how many cigarettes per day: 0 - Social History ADL: Independent Occupation: not working History of Recent Travel: No Home Medications - Allergies Allergies/Adverse Reactions: Allergies Allergy/AdvReac Type Severity Reaction Status Date / Time lactose Allergy Verified 10/01/17 22:26 No Known Drug Allergies Allergy Verified 10/01/17 22:26 orange Allergy Mild Uncoded 10/01/17 22:26 - Home Medications Home Medications: Ambulatory Orders Calcium Carbonate/Vitamin D3 [Calcium 600-Vit D3 200 Tablet] 1 each PO HS Carvedilol [Coreg] 6.25 mg PO DAILY 07/05/14 Folic Acid - 1 mg PO DAILY 07/05/14 Warfarin Sodium [Coumadin] 10 mg PO HS 07/05/14 Aspirin [ASA -] 81 mg PO DAILY 12/26/14 Famotidine 40 mg PO DAILY 12/26/14 Carvedilol [Coreg -] 3.125 mg PO DAILY 01/20/17 predniSONE [Deltasone -] 5 mg PO DAILY 01/20/17 Benztropine Mesylate 0.5 mg PO HS 04/06/17 Propranolol HCl 10 mg PO BID 04/06/17 Azathioprine [Imuran -] 125 mg PO DAILY tablet 04/12/17 Family Disease History - Family Disease History Family Disease History: Diabetes: Mother, Heart Disease: Father ([place], HTN) Physical Exam-Neuro Vital Signs: Vital Signs Temperature 97.5 F L 10/03/17 13:22 Pulse Rate 75 10/03/17 13:22 Respiratory Rate 20 10/03/17 13:22 Blood Pressure 126/56 10/03/17 13:22 O2 Sat by Pulse Oximetry (%) 96 10/03/17 10:00 Labs: CBC, BMP 10/03/17 06:00 10/03/17 06:00 INR, PTT INR 1.53 (0.82-1.09) H 10/03/17 06:00 - Neuro Exam Level Of Consciousness: Yes: Alert, Oriented to Person, Oriented to Place, Oriented to Time Eyes: Yes: DEON Speech: WNL Cranial Nerves II-XII Intact: Yes DTR's: 0 Right Tricep, 0 Right Brachioradialis, 1+ Left Tricep, 1+ Left Brachioradialis, 1+ Left Achilles, 1+ Right Achilles, 2+ Left Bicep, 2+ Right Bicep Babinski: Absent Response to light touch: Normal Motor Strength: 4/5: Right Arm (hand per assessment nurse and biceps reduced, to some extent by pain, ), 5/5: Left Arm, Left Leg, Right Leg Problem List - Problems (1) Right arm weakness Code(s): R29.898 - OTH SYMPTOMS AND SIGNS INVOLVING THE MUSCULOSKELETAL SYSTEM (2) Supratherapeutic INR Code(s): R79.1 - ABNORMAL COAGULATION PROFILE (3) Takayasu's arteritis Code(s): M31.4 - AORTIC ARCH SYNDROME [TAKAYASU] (4) Warfarin-induced coagulopathy Code(s): T45.511A - POISONING BY ANTICOAGULANTS, ACCIDENTAL, INIT; D68.9 - COAGULATION DEFECT, UNSPECIFIED Assessment/Plan concern over compartment syndrome. Recommend imaging arm. Would discuss with radiology, though suspect ct right arm would be most appropriate. Would also get CT head, though stroke seems less likely.
[2017-10-03] MEDS: HEPARIN SOD,PORK IN 0.45% NACL 25,000 UNITS/500 ML INFUS.BAG IVPB SCH (17:15)
[2017-10-03] MEDS: WARFARIN NA 10 MG TABLET (FP) PO SCH (17:15)
--- NOTE | 2017-10-03 17:33 | PN ---
Progress Note, Physician Chief Complaint: Pt A&Ox3; asymptomatic History of Present Illness: The patient is a 37 year old black male with a past medical history of Takayasus arteritis, AAA x3, aortic root replacement, aortic valve replacement ( now with a metallic valve), and depression who presents to the emergency department with ecchymosis today. The patient reports that he took his daily dose of coumadin today even though his primary doctor told him not to. Today the patient had blood taken to measure his INR levels and the wound made but the needle is still bleeding. He notes associated spontaneous bruising and bilateral lower extremity swelling and tenderness. He denies any recent changes in diet, hematuria, hematochezia, epistaxis, or bloody gums. Pt was reportedly given ?Vitamin K for elevated INR; the INR is now 2.2. - Current Medication List Current Medications: Active Medications Acetaminophen (Tylenol -) 650 mg PO Q4H PRN PRN Reason: PAIN LEVEL 1-5 Last Admin: 10/02/17 03:11 Dose: 650 mg Aspirin (Asa -) 81 mg PO DAILY [facility] Last Admin: 10/03/17 10:16 Dose: 81 mg Azathioprine (Imuran -) 125 mg PO DAILY [facility] Last Admin: 10/03/17 10:19 Dose: 125 mg Benztropine Mesylate (Cogentin -) 0.5 mg PO HS [facility] Last Admin: 10/02/17 21:30 Dose: 0.5 mg Calcium Carbonate/Cholecalciferol (Os-Carlos 500+D -) 1 tab PO HS [facility] Last Admin: 10/02/17 21:29 Dose: 1 tab Carvedilol (Coreg -) 6.25 mg PO DAILY [facility] Folic Acid (Folic Acid -) 1 mg PO DAILY [facility] Last Admin: 10/03/17 10:16 Dose: 1 mg Heparin Sodium (Porcine) (Heparin -) 1,000 unit IVPUSH PRN PRN PRN Reason: Heparin Last Admin: 10/03/17 00:51 Dose: 1,000 unit Heparin Sodium (Porcine) (Heparin -) 5,000 unit IVPUSH PRN PRN PRN Reason: Heparin HEPARIN SOD,PORK IN 0.45% NACL (Heparin-1/2ns 25,000 Units/500) 25,000 units in 500 mls @ 20 mls/hr IVPB TITR ADINA; 1,000 UNIT/HR PRN Reason: Protocol Last Admin: 10/03/17 17:15 Dose: 950 unit/hr, 19 mls/hr Oxycodone HCl (Roxicodone -) 5 mg PO Q4H PRN PRN Reason: PAIN LEVEL 6-10 Last Admin: 10/02/17 03:42 Dose: 5 mg Prednisone (Deltasone -) 5 mg PO DAILY [facility] Last Admin: 10/03/17 10:16 Dose: 5 mg Propranolol HCl (Inderal -) 10 mg PO BID [facility] Last Admin: 10/03/17 10:16 Dose: 10 mg Ranitidine HCl (Zantac -) 300 mg PO DAILY [facility] Last Admin: 10/03/17 10:16 Dose: 300 mg Warfarin Sodium (Coumadin -) 10 mg PO DAILY@1800 [facility] Last Admin: 10/03/17 17:15 Dose: 10 mg - Objective Vital Signs: Vital Signs Temperature 97.5 F L 10/03/17 13:22 Pulse Rate 75 10/03/17 13:22 Respiratory Rate 20 10/03/17 13:22 Blood Pressure 126/56 10/03/17 13:22 O2 Sat by Pulse Oximetry (%) 96 10/03/17 10:00 Constitutional: Yes: Calm Eyes: Yes: WNL HENT: Yes: WNL Neck: Yes: WNL Cardiovascular: Yes: S1, S2 (split) Respiratory: Yes: Regular Gastrointestinal: Yes: Soft ...Rectal Exam: Yes: Deferred Genitourinary: No: Anuria Musculoskeletal: Yes: Joint Stiffness, Muscle Weakness Extremities: Yes: WNL Edema: No Peripheral Pulses WNL: Yes Integumentary: Yes: WNL Neurological: Yes: Alert, Oriented Psychiatric: Yes: Alert, Oriented Labs: CBC, BMP 10/03/17 06:00 10/03/17 06:00 INR, PTT INR 1.53 (0.82-1.09) H 10/03/17 06:00 Problem List - Problems (1) Right arm weakness Code(s): R29.898 - OT SYMPTOMS AND SIGNS INVOLVING THE MUSCULOSKELETAL SYSTEM (2) Status post mechanical aortic valve replacement Assessment/Plan: on ASA and warfarin AoValve well seated with trace AR (04/03 ECHO); f/u serially. Code(s): Z95.2 - PRESENCE OF PROSTHETIC HEART VALVE (3) Takayasu's arteritis Code(s): M31.4 - AORTIC ARCH SYNDROME [TAKAYASU] (4) Subtherapeutic international normalized ratio (INR) Assessment/Plan: On warfarin; on heparin until INR >2.5. Code(s): R79.1 - ABNORMAL COAGULATION PROFILE
[2017-10-03] MEDS: BENZTROPINE MESYLATE 0.5 MG TABLET (FP) PO SCH (21:48)
[2017-10-03] MEDS: CALCIUM 500MG/VIT-D 200 UNITS COMBO TABLET (FP) PO SCH (21:48)
--- NOTE | 2017-10-03 22:48 | CONSULT ---
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 Now complains of weakness and pain and swelling in right forearm and hand. Vascular studies were non diagnostic/ DVT ruled out. We were asked to assess. - History Source History Provided By: Patient, Medical Record Limitations to Obtaining History: No Limitations - Past Medical History Cardio/Vascular: Yes: Aneurysm (AAA x2 repair) Psych: Yes: Depression, Schizophrenia Rheumatology: Yes: Vasculitis (Takayasu's Arteritis on prednisone ) - Past Surgical History Past Surgical History: Yes: AAA Repair, Hernia Repair, Valve Replacement ( metallic aortic valve) - Alcohol/Substance Use Hx Alcohol Use: No History of Substance Use: reports: None - Smoking History Smoking history: Never smoked Have you smoked in the past 12 months: No Aproximately how many cigarettes per day: 0 - Social History ADL: Independent Occupation: not working History of Recent Travel: No Home Medications - Allergies Allergies/Adverse Reactions: Allergies Allergy/AdvReac Type Severity Reaction Status Date / Time lactose Allergy Verified 10/01/17 22:26 No Known Drug Allergies Allergy Verified 10/01/17 22:26 orange Allergy Mild Uncoded 10/01/17 22:26 - Home Medications Home Medications: Ambulatory Orders Calcium Carbonate/Vitamin D3 [Calcium 600-Vit D3 200 Tablet] 1 each PO HS Carvedilol [Coreg] 6.25 mg PO DAILY 07/05/14 Folic Acid - 1 mg PO DAILY 07/05/14 Warfarin Sodium [Coumadin] 10 mg PO HS 07/05/14 Aspirin [ASA -] 81 mg PO DAILY 12/26/14 Famotidine 40 mg PO DAILY 12/26/14 Carvedilol [Coreg -] 3.125 mg PO DAILY 01/20/17 predniSONE [Deltasone -] 5 mg PO DAILY 01/20/17 Benztropine Mesylate 0.5 mg PO HS 04/06/17 Propranolol HCl 10 mg PO BID 04/06/17 Azathioprine [Imuran -] 125 mg PO DAILY tablet 04/12/17 Family Disease History - Family Disease History Family Disease History: Diabetes: Mother, Heart Disease: Father ([place], HTN) Review of Systems - Review of Systems Constitutional: reports: Malaise. denies: Chills, Fever, Unintentional Wgt. Loss Eyes: denies: Blurred Vision, Recent Change in Vision HENT: denies: Difficult Swallowing, Throat Pain Neck: denies: Pain on Movement, Tenderness Cardiovascular: denies: Chest Pain, Palpitations Respiratory: denies: Cough, SOB Gastrointestinal: denies: Abdominal Pain, Constipation, Diarrhea Genitourinary: denies: Discharge, Dysuria, Flank Pain Breasts: reports: No Symptoms Reported. denies: Pain Musculoskeletal: reports: Muscle Weakness Integumentary: denies: Rash, Wound Neurological: reports: Weakness. denies: Seizure, Syncope Endocrine: denies: Unexplained Weight Gain, Unexplained Weight Loss Hematology/Lymphatic: reports: Easily Bruised, Excessive Bleeding Psychiatric: reports: Anxiety, Depression Physical Exam Vital Signs: Vital Signs Temperature 97.7 F 10/03/17 21:47 Pulse Rate 76 10/03/17 21:47 Respiratory Rate 18 10/03/17 21:47 Blood Pressure 142/64 10/03/17 21:47 O2 Sat by Pulse Oximetry (%) 96 10/03/17 18:00 Vital Signs Period Temp Pulse Resp BP Sys/Tucker Pulse Ox Last 24 Hr 97.5 F-98.5 F 72-76 18-20 126-142/56-67 96-96 Constitutional: Yes: Well Nourished, No Distress, Calm Eyes: Yes: Conjunctiva Clear, EOM Intact HENT: Yes: Atraumatic, Normocephalic Neck: Yes: Supple, Trachea Midline Cardiovascular: Yes: Regular Rate and Rhythm, S1, S2 Respiratory: Yes: Regular, CTA Bilaterally Gastrointestinal: Yes: Normal Bowel Sounds, Soft. 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 [id number] volar radial echymosis). No: Cool, Cyanosis Edema: Yes Edema: RUE: 1+ Peripheral Pulses WNL: Yes (+2 radial, bracial pulses b/l wrist, -allens test b/ l, ) Wound/Incision: Yes: Clean/Dry, Well Approximated Neurological: Yes: Alert, Oriented Psychiatric: Yes: Alert, Oriented Labs: CBC, BMP 10/03/17 06:00 10/03/17 06:00 Imaging - Results Cat Scan: Report Reviewed, Image Reviewed Ultrasound: Report Reviewed, Image Reviewed Problem List - Problems (1) Traumatic hematoma of forearm Assessment/Plan: 37 yo male MMP including reyu presents with coumadin toxic bleeding, He has a right forearm hematoma, and a possible AIN ns radial neuroapraxia from pressure dressings at bleeding site in forearm. Motor>> sensory deficit is notable right arm 3/5 proximally (shoulder to elbow) and 4/5 distally (elbow to finger tips). left arm unefected. Compartments on exams are soft. This is not compartment syndrome. Forearm compartments measured 10/02 @ 230pm with a marimar needle at the bedside 7-9mmHg dorsal and volar (25-30mmHg is threshold) . Surgical fasciotomy is not indicated. right arm elevation above heart level to reduce edema EMG and NCS bilateral arms Spinal cord or brachial plexus imaging may be diagnostic, less likely central ( i.e. CVA) Rheumatology followup Will follow Thank you for the opportunity to participate in the care of this patient. Code(s): S50.10XA - CONTUSION OF UNSPECIFIED FOREARM, INITIAL ENCOUNTER Qualifiers: Encounter type: initial encounter Laterality: right Qualified Code(s): S50.11XA - Contusion of right forearm, initial encounter (2) Right arm weakness Code(s): R29.898 - OTH SYMPTOMS AND SIGNS INVOLVING THE MUSCULOSKELETAL SYSTEM (3) Subtherapeutic international normalized ratio (INR) Code(s): R79.1 - ABNORMAL COAGULATION PROFILE (4) Musculoskeletal chest pain Code(s): R07.89 - OTHER CHEST PAIN (5) Takayasu's arteritis Code(s): M31.4 - AORTIC ARCH SYNDROME [TAKAYASU] (6) Warfarin-induced coagulopathy Code(s): T45.511A - POISONING BY ANTICOAGULANTS, ACCIDENTAL, INIT; D68.9 - COAGULATION DEFECT, UNSPECIFIED
[2017-10-04 08:05] LABS: HEMATOCRIT 39.1 % (35.4-49); HEMOGLOBIN 12.8 GM/dL (11.7-16.9); MCH 30.1 pg (25.7-33.7); MCHC 32.6 g/dl (32.0-35.9); MEAN CELL VOLUME 92.1 fl (80-96); MEAN PLT VOLUME 7.5 fl (7.5-11.1); PLATELET COUNT 334 K/MM3 (134-434); RBC 4.25 M/mm3 (4.00-5.60); RDW 15.6 % (11.9-15.9); WHITE BLOOD COUNT 9.1 K/mm3 (4.0-10.0)
[2017-10-04] MEDS ORDERED: PT OWN MED DRAWER 7, Y5N ONE (09:01)
[2017-10-04 09:40] LABS: INR 2.62 (0.82-1.09); PROTHROMBIN TIME (PATIENT) 29.6 SEC (9.7-13.0)
[2017-10-04] MEDS: RANITIDINE HCL 150 MG TABLET (FP) PO SCH (10:43)
[2017-10-04] MEDS: ASPIRIN 81 MG CHEWABLE TABLETS PO SCH (10:43)
[2017-10-04] MEDS: predniSONE 5 MG TABLET (UD) PO SCH (10:43)
[2017-10-04] MEDS: FOLIC ACID 1 MG TABLET (FP) PO SCH (10:43)
[2017-10-04] MEDS: azaTHIOprine 50 MG TABLET PO SCH (10:44)
--- NOTE | 2017-10-04 12:09 | PN ---
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 Now complains of weakness and pain and swelling in right forearm and hand. This has gradually improved over the past 48hrs. stable overnight and moving better this morning. - Current Medication List Current Medications: Active Medications Acetaminophen (Tylenol -) 650 mg PO Q4H PRN PRN Reason: PAIN LEVEL 1-5 Last Admin: 10/02/17 03:11 Dose: 650 mg Aspirin (Asa -) 81 mg PO DAILY [facility] Last Admin: 10/04/17 10:43 Dose: 81 mg Azathioprine (Imuran -) 125 mg PO DAILY [facility] Last Admin: 10/04/17 10:44 Dose: 125 mg Benztropine Mesylate (Cogentin -) 0.5 mg PO HS [facility] Last Admin: 10/03/17 21:48 Dose: 0.5 mg Calcium Carbonate/Cholecalciferol (Os-Carlos 500+D -) [address] [facility] Last Admin: 10/03/17 21:48 Dose: 1 tab Carvedilol (Coreg -) 6.25 mg PO DAILY [facility] Folic Acid (Folic Acid -) 1 mg PO DAILY [facility] Last Admin: 10/04/17 10:43 Dose: 1 mg Heparin Sodium (Porcine) (Heparin -) 1,000 unit IVPUSH PRN PRN PRN Reason: Heparin Last Admin: 10/03/17 00:51 Dose: 1,000 unit Heparin Sodium (Porcine) (Heparin -) 5,000 unit IVPUSH PRN PRN PRN Reason: Heparin HEPARIN SOD,PORK IN 0.45% NACL (Heparin-1/2ns 25,000 Units/500) 25,000 units in 500 mls @ 20 mls/hr IVPB TITR ADINA; 1,000 UNIT/HR PRN Reason: Protocol Last Titration: 10/04/17 10:15 Dose: 850 unit/hr, 17 mls/hr Oxycodone HCl (Roxicodone -) 5 mg PO Q4H PRN PRN Reason: PAIN LEVEL 6-10 Last Admin: 10/02/17 03:42 Dose: 5 mg Prednisone (Deltasone -) 5 mg PO DAILY [facility] Last Admin: 10/04/17 10:43 Dose: 5 mg Propranolol HCl (Inderal -) 10 mg PO BID [facility] Last Admin: 10/04/17 10:43 Dose: 10 mg Ranitidine HCl (Zantac -) 300 mg PO DAILY [facility] Last Admin: 10/04/17 10:43 Dose: 300 mg Warfarin Sodium (Coumadin -) 10 mg PO DAILY@1800 [facility] Last Admin: 10/03/17 17:15 Dose: 10 mg - Objective Vital Signs: Vital Signs Temperature 68 F L 10/04/17 05:50 Pulse Rate 68 10/04/17 05:50 Respiratory Rate 18 10/04/17 05:50 Blood Pressure 147/65 10/04/17 05:50 O2 Sat by Pulse Oximetry (%) 96 10/04/17 00:14 Vital Signs Period Temp Pulse Resp BP Sys/Tucker Pulse Ox Last 24 Hr 68 F-98.5 F 68-76 18-20 126-147/56-65 96-96 Constitutional: Yes: Well Nourished, No Distress, Calm Eyes: Yes: Conjunctiva Clear, EOM Intact HENT: Yes: Atraumatic, Normocephalic Neck: Yes: Supple, Trachea Midline Cardiovascular: Yes: Regular Rate and Rhythm, S1, S2 Respiratory: Yes: Regular, CTA Bilaterally Gastrointestinal: Yes: Normal Bowel Sounds, Soft. No: Tenderness ...Rectal Exam: Yes: Deferred Genitourinary: No: CVA Tenderness - Left, CVA Tenderness - Right Extremities: Yes: Other (right volar radial forearm ecchymosis). No: Cool, Cyanosis Peripheral Pulses: Left Radial: 2+, Right Radial: 2+, Left Doralis Pedis: 2+, Right Dorsalis Pedis: 2+ Integumentary: No: Jaundice, Rash Neurological: Yes: Alert, Oriented Psychiatric: Yes: Alert, Oriented Labs: CBC, BMP 10/04/17 06:00 10/03/17 06:00 INR, PTT INR 2.62 (0.82-1.09) H D 10/04/17 09:30 Problem List - Problems (1) Traumatic hematoma of forearm Assessment/Plan: 37 yo male MMP including takaysu presents with coumadin toxic bleeding, He has a right forearm hematoma, Motor>> sensory deficit is improving, forearm compartments remain soft. echymosis is maturing (darker with less distinct borders) Surgical fasciotomy is not indicated. right arm elevation above heart level to reduce edema EMG and NCS bilateral arms PT evaluation Rheumatology followup Will follow Code(s): S50.10XA - CONTUSION OF UNSPECIFIED FOREARM, INITIAL ENCOUNTER Qualifiers: Encounter type: initial encounter Laterality: right Qualified Code(s): S50.11XA - Contusion of right forearm, initial encounter (2) Right arm weakness Code(s): R29.898 - OTH SYMPTOMS AND SIGNS INVOLVING THE MUSCULOSKELETAL SYSTEM (3) Subtherapeutic international normalized ratio (INR) Code(s): R79.1 - ABNORMAL COAGULATION PROFILE (4) Musculoskeletal chest pain Code(s): R07.89 - OTHER CHEST PAIN (5) Takayasu's arteritis Code(s): M31.4 - AORTIC ARCH SYNDROME [TAKAYASU] (6) Warfarin-induced coagulopathy Code(s): T45.511A - POISONING BY ANTICOAGULANTS, ACCIDENTAL, INIT; D68.9 - COAGULATION DEFECT, UNSPECIFIED
[2017-10-04 12:34] VITALS: BP 128/65; PULSE 76; TEMP 97.9
--- NOTE | 2017-10-04 14:01 | PN ---
Progress Note (short form) - Note Progress Note: Subjective: No fever or chills , no pain in R arm. Objective: Vital Signs: Last Vital Signs Temp Pulse Resp BP Pulse Ox 97.9 F 76 18 128/65 96 10/04/17 10:00 10/04/17 10:00 10/04/17 10:00 10/04/17 10:00 10/04/17 10:00 Laboratory Results - last 24 hr 10/03/17 10/04/17 10/04/17 15:40 06:00 06:00 WBC 9.1 RBC 4.25 Hgb 12.8 Hct 39.1 MCV 92.1 MCH 30.1 MCHC 32.6 RDW 15.6 Plt Count 334 D MPV 7.5 PT with INR INR PTT (Actin FS) 74.8 H 95.2 H 10/04/17 09:30 WBC RBC Hgb Hct MCV MCH MCHC RDW Plt Count MPV PT with INR 29.60 H INR 2.62 H D PTT (Actin FS) Physical Exam: NAD , AAOx3 no facial droop. MMM CV: RRR, 3/6 DM at RUSB and LLSB. Abd: soft, NT, N d, NL Bs Skin: striae all over body Ext: no edema or erythema over LE . radial pulse R for arm with increased circumference and bruising. 2+ radial pule b/l. R wrist flexion 4/5 compared to 5/5 on L . improved ability to expand fingers. nl sensation on hand and fore arm. decreased ability to make a fist on R. . R wrist extension 5/5 ASSESSMENT AND PLAN: 37 y/o man with h/o Takayasu 's, HTN, Thoracic aortic aneurysm repair, mechanical aortic valve replacement , who presented with R arm bleeding after blood draw, and was found ot have R forearm hematoma and coumadin coagulopathy. 1- RUE hematoma: due to supratherapeutic INR. improved . 2- R hand weakness. nO ct evidenc eof infarct. Improved muscle strength at wrist extension and fingers, but still 4/5 wrist flexion. appreciate neuro input. spoke to Dr. priest today and out pt f/u was recommended will give pt PT prescription for ocupational therapy 3- Mechanicla aortic valve : INR 2.62 today - cont coumadin 10 mg daily at dc - next INR 10/06/17 . - f/u with Dr. Long and his cardiac surgeron 3- h/o HTN:cont meds 4- Takayasu's ; - cont predniosne and azathioprin - f/u with Rheumatology - dispo : DC home today - f/u P CP , card, Rheum andcardiac surgeon - condition improved - blood work: INR 10/06/17 Visit type - Emergency Visit Emergency Visit: Yes ED Registration Date: 10/02/17 Care time: The patient presented to the Emergency Department on the above date and was hospitalized for further evaluation of their emergent condition. - New Patient This patient is new to me today: No - Critical Care Critical Care patient: No - Discharge Referral Referred to [facility] Med P.C.: No
--- NOTE | 2017-10-04 14:15 | PN ---
Progress Note (short form) - Note Progress Note: Improved strength, patient feeling better. No compartment syndrome. No evidnce of stroke. We can f/u as outpatient. Thanks. Problem List - Problems (1) Right arm weakness Code(s): R29.898 - OTH SYMPTOMS AND SIGNS INVOLVING THE MUSCULOSKELETAL SYSTEM (2) Takayasu's arteritis Code(s): M31.4 - AORTIC ARCH SYNDROME [TAKAYASU] (3) Warfarin-induced coagulopathy Code(s): T45.511A - POISONING BY ANTICOAGULANTS, ACCIDENTAL, INIT; D68.9 - COAGULATION DEFECT, UNSPECIFIED
--- NOTE | 2017-10-05 18:42 | DS ---
Physical Exam: SUBJECTIVE: Patient seen and examined at bedside. No acute events overnight. Denies CARBAJAL, fever, chills, or RUE pain. OBJECTIVE: Last vitals 10/04/17 10:00 Temperature 97.9 F Pulse Rate 76 Respiratory 18 Rate Blood Pressure 128/65 PHYSICAL EXAM GENERAL: The patient is resting in bed. awake, alert, and fully oriented, in no acute distress. HEAD: Normal with no signs of trauma. without facial asymmetry EYES: PERRL, extraocular movements intact, sclera anicteric, conjunctiva clear. ENT: Ears normal, nares patent, oropharynx clear without exudates, moist mucous membranes. NECK: Trachea midline, supple. LUNGS: Breath sounds equal, clear to auscultation bilaterally, no wheezes, no crackles, no accessory muscle use. HEART: Loud S1, S2 without murmur, rub or gallop. +diastolic murmur L sternal border CHEST: +linear pigmented scar ABDOMEN: Soft, nontender, nondistended, normoactive bowel sounds, no guarding, no rebound, no hepatosplenomegaly, no masses. UPPER EXTREMITIES: +atrophy/wasting b/l. +RUE with improved inferior ecchymoses -without TTP. 5/5 wrist extension, 5/5 wrist flexion, 2/5 finger abduction and adduction LOWER EXTREMITIES: 2+ dorsalis pedis pulses, warm, without edema NEUROLOGICAL: Cranial nerves II through XII grossly intact. Normal speech, gait not observed. PSYCH: Normal mood, normal affect. SKIN: Warm, dry, normal turgor Labs 10/02/17 10/02/17 10/02/17 00:17 00:17 05:48 WBC 10.1 H 10.3 H PT with INR 152.80 H INR 13.52 H* PTT (Actin FS) 131.0 H D 10/02/17 10/02/17 10/02/17 05:48 22:00 22:00 PT with INR 25.30 H 16.20 H INR 2.24 H D 1.43 H D PTT (Actin FS) 47.9 H D 10/03/17 10/03/17 10/03/17 06:00 06:00 06:00 WBC 9.0 Hgb 12.2 Hct 35.7 Plt Count 261 PT with INR 17.30 H INR 1.53 H PTT (Actin FS) 106.3 H D 10/03/17 10/04/17 10/04/17 15:40 06:00 06:00 WBC 9.1 Hgb 12.8 Hct 39.1 Plt Count 334 D PTT (Actin FS) 74.8 H 95.2 H 10/04/17 09:30 PT with INR 29.60 H INR 2.62 H D IMAGING 10/01/17: Duplex scan RUE: there is no evidence of DVT in RUE. 10/02/17: CXR: prominent mediastinum. previous open heart surgery; sternotomy with valve replacement. new left pulmonary and pleural changes. old left rib trauma. 10/02/17: Upper extremity CTA: no pseudoaneurysm or active extravasation of contrast, no active bleeding, no IM hematoma 10/02/17: Head CT noncon: no acute bleed or fx HOSPITAL COURSE: Date of Admission:10/02/17 Date of Discharge: 10/05/17 Admit diagnosis: supratherapeutic INR 37 y/o M with PMH of HTN, Takayasu arteritis (on chronic steroids), TAA s/p repair x 3 (last 2013 [facility]), mechanical aortic valve replacement on Coumadin who was sent from clinic with supratherapeutic INR and continuous bleeding from needle injection site in R antecubital fossa. As per pt, day prior to admission, he saw his PMD and experienced bruising and increased bleeding with blood draw site on RUE. Pt was told to hold PM coumadin dose (10mg), however he forgot and still took it. Pt subsequently developed increased bleeding from the site and called 911. Pt admitted for supratherapeutic INR (13.52). While pt was in the ED, he received vit K IV, and 2U FFP. On the floor, pt's coumadin was initially held and he was placed on hep gtt for a/c. Pt was bridged with coumadin 10mg PO qd and once INR reached therapeutic range between 2.5-3 (2.62), he was discharged with cardio follow up , recommended frequent INR checks on his original dose of 10mg. During this time , pt also endorsed RUE pain and was r/o for compartment syndrome by the vascular team, and stroke was r/o by neuro. He will continue with neuro, rheumatologic, and cardiac surgery (hx aortic valve replacement) f/u upon discharge. Minutes to complete discharge: 43 Discharge Summary Reason For Visit: SUPRATHERAPEUTIC INR Condition: Improved - Instructions Diet, Activity, Other Instructions: - you were teated for bleeding in your arm due to elevated INR. - your INR became low and you were treated with heparin drip. - goal for your INR is 2.5 -3. - please follow with Dr. Long in 2 weeks - take 10 mg of coumadin initially, and need INR check on 10/06/17. fax results to Dr. Long at [phone]. - Initially you might need frequent INR checks, to avoid high or low numbers. - you re given prescription for physical therapy fro your hand - please follow with Dr. Hart [facility] neurology. - if you ndeverlop any fever , chills, redness or increased pain and weakness to the right arm please co me bertrand to ER. - elevation of your R arm to reduce edema - Good luck Referrals: Gonzalo Hart MD [Staff Physician] - Vickie Ozuna MD [Primary Care Provider] - 1 Week Danny Long MD [Staff Physician] - 2 Weeks Disposition: HOME - Home Medications Comprehensive Discharge Medication List: Ambulatory Orders Calcium Carbonate/Vitamin D3 [Calcium 600-Vit D3 200 Tablet] 1 each PO HS Carvedilol [Coreg] 6.25 mg PO DAILY 07/05/14 Folic Acid - 1 mg PO DAILY 07/05/14 Warfarin Sodium [Coumadin] 10 mg PO HS 07/05/14 Aspirin [ASA -] 81 mg PO DAILY 12/26/14 Famotidine 40 mg PO DAILY 12/26/14 Carvedilol [Coreg -] 3.125 mg PO DAILY 01/20/17 predniSONE [Deltasone -] 5 mg PO DAILY 01/20/17 Benztropine Mesylate 0.5 mg PO HS 04/06/17 Propranolol HCl 10 mg PO BID 04/06/17 Azathioprine [Imuran -] 125 mg PO DAILY tablet 04/12/17 Miscellaneous Medical Supply [Outpatient Order] 1 each ASDIR #1 misc Physical Therapy Order 1 each NR ASDIR #1 order 10/04/17 This patient is new to me today: No Emergency Visit: No Critical Care patient: No - Discharge Referral Referred to [facility] Med P.C.: No
== END 2017-10-04 15:05 | disposition home or self-care (01) ==
LOC: JER 22:05 → JERBED 10-02 01:53 → UNDOADMOB 10-02 02:14 → J7W 10-02 05:26
PROVIDERS: ADMIT Internal Medicine; ATTEND Internal Medicine
PROC: 3E033GC Introduction of Other Therapeutic Substance into Peripheral Vein, Percutaneous Approach (ICD-10-PCS; principal; 2017-10-02)
DX: T45.511A Poisoning by anticoagulants, accidental (unintentional), initial encounter (principal); R79.1 Abnormal coagulation profile; M79.81 Nontraumatic hematoma of soft tissue; R31.9 Hematuria, unspecified; I10 Essential (primary) hypertension; M31.4 Aortic arch syndrome [Takayasu]; F32.9 Major depressive disorder, single episode, unspecified; Z79.01 Long term (current) use of anticoagulants; Z95.2 Presence of prosthetic heart valve; Z91.011 Allergy to milk products; Z79.82 Long term (current) use of aspirin; Z86.79 Personal history of other diseases of the circulatory system; R29.898 Other symptoms and signs involving the musculoskeletal system; R07.89 Other chest pain
CPT/HCPCS: 36415; 36430; 70450-TC; 71045-TC-FY; 73206-TC-RT; 80048; 80053; 83036; 85025; 85027; 85610; 85730; 86850; 86900; 86901; 93005; 93010; 93971; 96374; 96375; 96376; 99282-25; G0378; J1644; P9017

== ENCOUNTER 2017-10-13 13:19 | Inpatient (IN) | payer OTHER ==
[2017-10-13 13:37] VITALS: BMI 25.1
--- NOTE | 2017-10-13 14:50 | PDOC ---
History of Present Illness - General Chief Complaint: Weakness Stated Complaint: WEAKNESS Time Seen by Provider: 10/13/17 14:26 History Source: Patient - History of Present Illness Timing/Duration: other (today) Severity: severe Associated Symptoms: reports: weakness. denies: chest pain, diaphoresis, fever/ chills, headaches, nausea/vomiting, shortness of breath Past History - Past Medical History Allergies/Adverse Reactions: Allergies Allergy/AdvReac Type Severity Reaction Status Date / Time lactose Allergy Verified 10/13/17 13:35 No Known Drug Allergies Allergy Verified 10/13/17 13:35 orange Allergy Mild Uncoded 10/13/17 13:35 Home Medications: Ambulatory Orders Calcium Carbonate/Vitamin D3 [Calcium 600-Vit D3 200 Tablet] 1 each PO HS Carvedilol [Coreg] 6.25 mg PO DAILY 07/05/14 Folic Acid - 1 mg PO DAILY 07/05/14 Warfarin Sodium [Coumadin] 10 mg PO HS 07/05/14 Aspirin [ASA -] 81 mg PO DAILY 12/26/14 Famotidine 40 mg PO DAILY 12/26/14 Carvedilol [Coreg -] 3.125 mg PO DAILY 01/20/17 predniSONE [Deltasone -] 5 mg PO DAILY 01/20/17 Benztropine Mesylate 0.5 mg PO HS 04/06/17 Propranolol HCl 10 mg PO BID 04/06/17 Azathioprine [Imuran -] 125 mg PO DAILY tablet 04/12/17 Miscellaneous Medical Supply [Outpatient Order] 1 each ASDIR #1 misc Physical Therapy Order 1 each NR ASDIR #1 order 10/04/17 Anemia: No Asthma: No Cancer: No Cardiac Disorders: Yes (TAA) CVA: No COPD: No CHF: No Dementia: No Diabetes: Yes GI Disorders: No Disorders: No HTN: Yes Hypercholesterolemia: No Liver Disease: No Psychiatric Problems: Yes (depression) Seizures: No Thyroid Disease: No - Surgical History Abdominal Surgery: Yes (ABDOMINAL HERNIA) Appendectomy: No Cardiac Surgery: Yes (AORTIC ROOT REPLACEMENT;AVR,,DESENDING TAA REPAIR,) Cholecystectomy: No Lung Surgery: No Neurologic Surgery: No Orthopedic Surgery: No - Immunization History Immunization Up to Date: Yes - Suicide/Smoking/Psychosocial Hx Smoking Status: No Smoking History: Never smoked Have you smoked in the past 12 months: No Number of Cigarettes Smoked Daily: 0 Hx Alcohol Use: No Drug/Substance Use Hx: No Substance Use Type: None Hx Substance Use Treatment: No Review of Systems - Review of Systems Constitutional: Yes: Weakness. No: Fever Respiratory: No: Cough, Shortness of Breath Cardiac (ROS): No: Chest Pain, Lightheadedness, Palpitations ABD/GI: No: Nausea, Vomiting *Physical Exam - Vital Signs Last Vital Signs Temp Pulse Resp BP Pulse Ox 98.2 F 73 18 120/66 100 10/13/17 13:36 10/13/17 13:36 10/13/17 13:36 10/13/17 13:36 10/13/17 13:36 - Physical Exam General Appearance: Yes: Appropriately Dressed. No: Apparent Distress HEENT: positive: Normal Voice Neck: positive: Supple Respiratory/Chest: positive: Lungs Clear, Normal Breath Sounds. negative: Respiratory Distress Cardiovascular: positive: Other (?murmur ) Gastrointestinal/Abdominal: positive: Soft. 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 Patient states he noticed that he was becoming increasingly tired from simply walking around in his apartment and at some point, felt like passing out. Denies chest pain, diaphoresis, nausea, vomiting, palpitations, leg pain or swelling. No CARBAJAL, dizziness, blurry vision or focal weakness. Patient status post recent admission for supratherapeutic INR. Currently on 10 mg coumadin daily See exam Fatigue R/o ACS vs new onset HF Stable w/ ?murmur on exam, hard to characterize (pt states he was dx w/ heart murmur recently) -ekg -cxr -labs -cards c.s -admit 10/13/17 16:06 10/13/17 16:08 INR 6, took last coumadin dose yesterday. S/p recent admission for supratherapeutic INR, was 2.6 on discharge 10/04. No active bleed. Refuses rectal exam. Will hold coumadin and give dose or vit K and continue to monitor INR inhouse. No indication for FFP at this time. EKG and rest of labs unremarkable. CXR read as ?residual mild atelectasis vs infiltrates to L midlung. Clinically, no suspicion for pneumonia at this time given no cough or fever. 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 Álvarez, who states pt has known murmurs given aortic disease/surgeries. MD not aware of any new murmurs. States will order echo while pt inhouse. Aware of supratherapeutic INR and states will explore the possibility of medication interactions. Pt admitted to [facility] at this time *DC/Admit/Observation/Transfer Diagnosis at time of Disposition: Supratherapeutic INR Fatigue Qualifiers: Fatigue type: unspecified Qualified Code(s): R53.83 - Other fatigue - Discharge Dispostion Condition at time of disposition: Fair Decision to Admit order: Yes - Referrals Referrals: Vickie Ozuna MD [Primary Care Provider] - - Patient Instructions - Post Discharge Activity
[2017-10-13 14:52] LABS: BASO % 0.6 % (0-2.0); EOS % 0.5 % (0-4.5); HEMATOCRIT 35.3 % (35.4-49); HEMOGLOBIN 11.9 GM/dL (11.7-16.9); LYMPH % 11.5 % (8-40); MCH 30.8 pg (25.7-33.7); MCHC 33.7 g/dl (32.0-35.9); MEAN CELL VOLUME 91.3 fl (80-96); MONO % 7.3 % (3.8-10.2); NEUT % 80.1 % (42.8-82.8); PLATELET COUNT 295 K/MM3 (134-434); RBC 3.87 M/mm3 (4.00-5.60); RDW 15.6 % (11.9-15.9); WHITE BLOOD COUNT 8.6 K/mm3 (4.0-10.0)
[2017-10-13 15:05] LABS: PROTHROMBIN TIME (PATIENT) 78.7 SEC (9.7-13.0)
[2017-10-13 15:07] LABS: INR 6.96 (0.82-1.09)
[2017-10-13] MEDS ORDERED: PHYTONADIONE 10 MG/1 ML AMP IVPB ONE ×2 (15:08→15:11)
[2017-10-13 15:13] LABS: ALBUMIN 3.6 g/dl (3.4-5.0); ANION GAP 7 (8-16); BILIRUBIN,TOTAL 0.8 mg/dL (0.2-1.0); BLOOD UREA NITROGEN 12 mg/dL (7-18); CALCIUM 7.9 mg/dL (8.5-10.1); CHLORIDE 107 mmol/L (98-107); CO2 25 mmol/L (21-32); CREATININE 0.8 mg/dL (0.7-1.3); GLUCOSE,RANDOM 87 mg/dL (74-106); POTASSIUM 3.8 mmol/L (3.5-5.1); SGOT/AST 21 U/L (15-37); SGPT/ALT 12 U/L (12-78); SODIUM 139 mmol/L (136-145); TOT PROT 6.9 g/dl (6.4-8.2)
[2017-10-13 15:16] LABS: ALK PHOS 49 U/L (45-117)
[2017-10-13] MEDS ORDERED: PHYTONADIONE 10 MG/1 ML AMP ONE (15:24)
--- NOTE | 2017-10-13 17:17 | HP ---
CHIEF COMPLAINT:supratherapuetic INR and fatigue PCP:Laith Fur [employer]ing Machine Attendant: Dr. 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 Patient was walking around his house when he noticed he was getting progressively weaker. His nurse examined him and noticed a murmur and Dr. Christina his district captain was called. reassurance was given about his murmur and it was explained this is nothing new since he has had an aortic valve replacement but the patient grew more anxious. He states he was eventually advised to go to the ER and he called EMS. He was found to have a supratherapeutic INR in the ED. He denies any associated symptoms except weakness and some anxiety. Per his PCP he was recently at [facility] for a medical admission which turned into a 2 week psychiatric admission after he became catatonic and refused meds. The courts were apparently involved and ruled that patient did not have capacity to make decisions. Patient states he now does have the ability to make decisions PMD requesting psych eval per Dr. Perez who spoke to Dr. Ozuna. Patient states that he is compliant with medications and has not taken double his coumadin. Patient denies any changes in diet or medications. No recent falls. Denies gum bleeding, hematemeisis, hematuria, hematochezia, epistaxis or large bruises. ER course was notable for: (1)Labs (2)EKG (3)Vitamin K Cardiology consult Recent Travel:Denies PAST MEDICAL HISTORY:as above PAST SURGICAL HISTORY:thoracic aortic anuerysm repair x3 last one in 2013 aortic valve replacement Social History: Smoking:Denies Alcohol:Denies Drugs: Denies Allergies lactose Allergy (Verified 10/13/17 13:35) No Known Drug Allergies Allergy (Verified 10/13/17 13:35) orange Allergy (Mild, Uncoded 10/13/17 13:35) sister cannot recall reaction. HOME MEDICATIONS: Home Medications Medication Instructions Recorded Calcium Carbonate/Vitamin D3 1 each PO HS 07/05/14 [Calcium 600-Vit D3 200 Tablet] Carvedilol [Coreg] 6.25 mg PO DAILY 07/05/14 Folic Acid - 1 mg PO DAILY 07/05/14 Warfarin Sodium [Coumadin] 10 mg PO HS 07/05/14 Aspirin [ASA -] 81 mg PO DAILY 12/26/14 Famotidine 40 mg PO DAILY 12/26/14 Carvedilol [Coreg -] 3.125 mg PO DAILY 01/20/17 predniSONE [Deltasone -] 5 mg PO DAILY 01/20/17 Benztropine Mesylate 0.5 mg PO HS 04/06/17 Propranolol HCl 10 mg PO BID 04/06/17 Azathioprine [Imuran -] 125 mg PO DAILY tablet 04/12/17 Miscellaneous Medical Supply 1 each ASDIR #1 mis 10/04/17 [Outpatient Order] Physical Therapy Order 1 each ASDIR #1 order 10/04/17 REVIEW OF SYSTEMS CONSTITUTIONAL: Absent: fever, chills, diaphoresis, malaise, loss of appetite, weight change Present: generalized weakness, Fatigue HEENT: Absent: rhinorrhea, nasal congestion, throat pain, throat swelling, difficulty swallowing, mouth swelling, ear pain, eye pain, visual changes CARDIOVASCULAR: Absent: chest pain, syncope, palpitations, irregular heart rate, lightheadedness , peripheral edema RESPIRATORY: Absent: cough, shortness of breath, dyspnea with exertion, orthopnea, wheezing, stridor, hemoptysis GASTROINTESTINAL: Absent: abdominal pain, abdominal distension, nausea, vomiting, diarrhea, constipation, melena, hematochezia GENITOURINARY: Absent: dysuria, frequency, urgency, hesitancy, hematuria, flank pain, genital pain MUSCULOSKELETAL: Absent: myalgia, arthralgia, joint swelling, back pain, neck pain SKIN: Absent: rash, itching, pallor HEMATOLOGIC/IMMUNOLOGIC: Absent: easy bleeding, easy bruising, lymphadenopathy, frequent infections ENDOCRINE: Absent: unexplained weight gain, unexplained weight loss, heat intolerance, cold intolerance NEUROLOGIC: Absent: headache, focal weakness or paresthesias, dizziness, unsteady gait, seizure, mental status changes, bladder or bowel incontinence PSYCHIATRIC: Absent: suicidal or homicidal ideation, hallucinations. Present:anxiety, depression PHYSICAL EXAMINATION Vital Signs - 24 hr 10/13/17 13:36 Temperature 98.2 F Pulse Rate 73 Respiratory 18 Rate Blood Pressure 120/66 O2 Sat by Pulse 100 Oximetry (%) GENERAL: Awake, alert, and fully oriented. anxious EYES: Pupils equal, round and reactive to light, extraocular movements intact EARS, NOSE, THROAT: Moist mucous membranes. LUNGS: Breath sounds equal, clear to auscultation bilaterally HEART: Regular rate and rhythm, normal S1 and S2 with loud 3/6 diastolic murmur with loud diastolic click ABDOMEN: Soft, nontender, not distended, normoactive bowel sounds, no guarding, no rebound, no masses. scar well healed UPPER EXTREMITIES: warm, well-perfused. LOWER EXTREMITIES: warm, well-perfused. NEUROLOGICAL: Cranial nerves II-XII grossly intact. Normal speech. gat not observed PSYCHIATRIC: Cooperative. Good eye contact. slightly anxious Laboratory Results - last 24 hr 10/13/17 10/13/17 10/13/17 14:30 14:30 14:30 WBC 8.6 RBC 3.87 L Hgb 11.9 Hct 35.3 L MCV 91.3 MCH 30.8 MCHC 33.7 RDW 15.6 Plt Count 295 MPV 7.0 L Neutrophils % 80.1 D Lymphocytes % 11.5 D Monocytes % 7.3 Eosinophils % 0.5 Basophils % 0.6 Nucleated RBC % 0 PT with INR 78.70 H INR 6.96 H* D Sodium 139 Potassium 3.8 Chloride 107 Carbon Dioxide 25 Anion Gap 7 L BUN 12 Creatinine 0.8 Creat Clearance w eGFR > 60 Random Glucose 87 Calcium 7.9 L Total Bilirubin 0.8 D AST 21 ALT 12 Alkaline Phosphatase 49 Creatine Kinase 109 Troponin I < 0.02 B-Natriuretic Peptide Total Protein 6.9 Albumin 3.6 Blood Type Antibody Screen 10/13/17 10/13/17 14:30 15:15 WBC RBC Hgb Hct MCV MCH MCHC RDW Plt Count MPV Neutrophils % Lymphocytes % Monocytes % Eosinophils % Basophils % Nucleated RBC % PT with INR INR Sodium Potassium Chloride Carbon Dioxide Anion Gap BUN Creatinine Creat Clearance w eGFR Random Glucose Calcium Total Bilirubin AST ALT Alkaline Phosphatase Creatine Kinase Troponin I B-Natriuretic Peptide 82.52 Total Protein Albumin Blood Type A POSITIVE Antibody Screen Negative Home Medications Medication Instructions Recorded Calcium Carbonate/Vitamin D3 1 each PO HS 07/05/14 [Calcium 600-Vit D3 200 Tablet] Carvedilol [Coreg] 6.25 mg PO DAILY 07/05/14 Folic Acid - 1 mg PO DAILY 07/05/14 Warfarin Sodium [Coumadin] 10 mg PO HS 07/05/14 Aspirin [ASA -] 81 mg PO DAILY 12/26/14 Famotidine 40 mg PO DAILY 12/26/14 Carvedilol [Coreg -] 3.125 mg PO DAILY 01/20/17 predniSONE [Deltasone -] 5 mg PO DAILY 01/20/17 Benztropine Mesylate 0.5 mg PO HS 04/06/17 Propranolol HCl 10 mg PO BID 04/06/17 Azathioprine [Imuran -] 125 mg PO DAILY tablet 04/12/17 Miscellaneous Medical Supply 1 each ASDIR #1 misc 10/04/17 [Outpatient Order] Physical Therapy Order 1 each NR ASDIR #1 order 10/04/17 ASSESSMENT/PLAN: 37M with multiple medical problems presents to the hospital with fatigue and weakness found to have a supratherapeutic INR. Supratherapeutic INR: admit to inpatient services telemetry cardiology consulted vitamin K 5mg IV given repeat PT/INR in AM monitor for signs/symptoms of bleeding type and screen in case FFP needed trend CBC Pharmacy unable to be reached to get full med list to make sure no other meds are being prescribed which could interact with Coumadin prolonging INR Hide [employer] for foods high in vitamin K Takayasu arteritis/aortic valve repair: Hold coumadin (see above plan) continue asprin 81mg po daily continue coreg 9.375 daily continue azothiporine continue prednisone/famotidine for GI PPx HTN: Restart propanolol Fatigue/Weakness: Could be cardiac related will do echO PT evaluation Psych/anxiety/depression: continue cogentin 0.5mg po HS Anemia: continue folic acid 1mg po daily FEN: No IVF no electrolyte issues low sodium diet PPx: INR supratherapeutic/SCDs Famotidine PT consult to avoid deconditioning Case dsicssed with attending Dr. Russ Visit type - Emergency Visit Emergency Visit: Yes Care time: The patient presented to the Emergency Department on the above date and was hospitalized for further evaluation of their emergent condition. - New Patient This patient is new to me today: Yes Date on this admission: 10/13/17 - Critical Care Critical Care patient: No Hospitalist Screening - Colonoscopy Questionnaire Colonoscopy Questionnaire: Colonoscopy Questionnaire - Patient: 50 - 75 years old and never had a screening colonoscopy: No History of colon or rectal polyps, or CA: No History of IBD, Crohn's disease or UC: No History of abdominal radiation therapy as a child: No - Relative: 1 with colon or rectal CA, or polyps at age 60 or younger: No Colon or rectal CA diagnosed at age 45 or younger: No Multiple relatives with colon or rectal CA: No - Outcome: Screening Result: Negative Screen
--- NOTE | 2017-10-13 17:34 | EKG ---
Test Reason : Blood Pressure : / mmHG Vent. Rate : 073 BPM Atrial Rate : 073 BPM P-R Int : 154 ms QRS Dur : 102 ms QT Int : 382 ms P-R-T Axes : 057 002 016 degrees QTc Int : 420 ms NORMAL SINUS RHYTHM POSSIBLE LEFT ATRIAL ENLARGEMENT LEFT VENTRICULAR HYPERTROPHY ABNORMAL ECG WHEN COMPARED WITH ECG OF 02-OCT-2017 04:24, NO SIGNIFICANT CHANGE WAS FOUND Confirmed by MD Dominic, Charles ([id number]) on 10/13/2017 5:34:14 PM Referred By: Confirmed By:Charles Alfaro MD
[2017-10-13] MEDS ORDERED: CARVEDILOL 3.125 MG TABLET (FP) PO SCH (18:30)
--- NOTE | 2017-10-13 19:05 | PN ---
Teaching Attending Note Name of Resident: Jesús Wesley ATTENDING PHYSICIAN STATEMENT I saw and evaluated the patient. I reviewed the resident's note and discussed the case with the resident. I agree with the resident's findings and plan as documented. SUBJECTIVE: OBJECTIVE: Vital Signs Period Temp Pulse Resp BP Sys/Tucker Pulse Ox Last 24 Hr 98.2 F 73-79 18-20 120-144/66-66 99-100 Laboratory Tests 10/13/17 10/13/17 10/13/17 14:30 14:30 14:30 WBC 8.6 RBC 3.87 L Hgb 11.9 Hct 35.3 L MCV 91.3 MCH 30.8 MCHC 33.7 RDW 15.6 Plt Count 295 MPV 7.0 L Neutrophils % 80.1 D Lymphocytes % 11.5 D Monocytes % 7.3 Eosinophils % 0.5 Basophils % 0.6 Nucleated RBC % 0 PT with INR 78.70 H INR 6.96 H* D Sodium 139 Potassium 3.8 Chloride 107 Carbon Dioxide 25 Anion Gap 7 L BUN 12 Creatinine 0.8 Creat Clearance w eGFR > 60 Random Glucose 87 Calcium 7.9 L Total Bilirubin 0.8 D AST 21 ALT 12 Alkaline Phosphatase 49 Creatine Kinase 109 Troponin I < 0.02 B-Natriuretic Peptide Total Protein 6.9 Albumin 3.6 Blood Type Antibody Screen 10/13/17 10/13/17 14:30 15:15 WBC RBC Hgb Hct MCV MCH MCHC RDW Plt Count MPV Neutrophils % Lymphocytes % Monocytes % Eosinophils % Basophils % Nucleated RBC % PT with INR INR Sodium Potassium Chloride Carbon Dioxide Anion Gap BUN Creatinine Creat Clearance w eGFR Random Glucose Calcium Total Bilirubin AST ALT Alkaline Phosphatase Creatine Kinase Troponin I B-Natriuretic Peptide 82.52 Total Protein Albumin Blood Type A POSITIVE Antibody Screen Negative Home Medications Medication Instructions Recorded Calcium Carbonate/Vitamin D3 1 each PO HS 07/05/14 [Calcium 600-Vit D3 200 Tablet] Carvedilol [Coreg] 6.25 mg PO DAILY 07/05/14 Folic Acid - 1 mg PO DAILY 07/05/14 Warfarin Sodium [Coumadin] 10 mg PO HS 07/05/14 Aspirin [ASA -] 81 mg PO DAILY 12/26/14 Famotidine 40 mg PO DAILY 12/26/14 Carvedilol [Coreg -] 3.125 mg PO DAILY 01/20/17 predniSONE [Deltasone -] 5 mg PO DAILY 01/20/17 Benztropine Mesylate 0.5 mg PO HS 04/06/17 Propranolol HCl 10 mg PO BID 04/06/17 Azathioprine [Imuran -] 125 mg PO DAILY tablet 04/12/17 Miscellaneous Medical Supply 1 each MC ASDIR #1 misc 10/04/17 [Outpatient Order] Physical Therapy Order 1 each NR ASDIR #1 order 10/04/17 ASSESSMENT AND PLAN:
--- NOTE | 2017-10-14 07:13 | CON.CARD ---
Consult Consult Specialty:: cardiology Reason for Consultation:: weakness; supratherapeutic INR - History of Present Illness Chief Complaint: Pt says he has been worried because he was told he had a murmur today, and was unaware of this until now. He subsequently developed weakness. History of Present Illness: Pt is a 37 yr old black man with PMHx Takayasu's arteritis requiring complex surgeries for aortic root replacement and aortic valve replacement,who now came to ER with weakness. INR 6, took last coumadin dose yesterday. S/p recent admission for supratherapeutic INR, was 2.6 on discharge 10/04. No active bleed. Refuses rectal exam. Will hold coumadin and give dose or vit K and continue to monitor INR inhouse. No indication for FFP at this time. EKG and rest of labs unremarkable. CXR read as ?residual mild atelectasis vs infiltrates to L midlung. Clinically, no suspicion for pneumonia at this time given no cough or fever. Will hold off on antibiotics at this time As discussed with his PMD, Dr. Vickie Ozuna, pt was recently admiited in [facility] for medical reasons, but required transfer to the psychiatric unit. He was reportedly "catatonic", and required a court order to have have him take his medications. - History Source History Provided By: Patient, Medical Record Limitations to Obtaining History: No Limitations - Past Medical History Cardio/Vascular: Yes: Aneurysm (AAA x2 repair) Psych: Yes: Depression, Schizophrenia Rheumatology: Yes: Vasculitis (Takayasu's Arteritis on prednisone ) - Past Surgical History Past Surgical History: Yes: AAA Repair, Hernia Repair, Valve Replacement ( metallic aortic valve) - Alcohol/Substance Use Hx Alcohol Use: No History of Substance Use: reports: None - Smoking History Smoking history: Never smoked Have you smoked in the past 12 months: No Aproximately how many cigarettes per day: 0 - Social History ADL: Independent Occupation: not working History of Recent Travel: No Home Medications - Allergies Allergies/Adverse Reactions: Allergies Allergy/AdvReac Type Severity Reaction Status Date / Time lactose Allergy Verified 10/13/17 13:35 No Known Drug Allergies Allergy Verified 10/13/17 13:35 orange Allergy Mild Uncoded 10/13/17 13:35 - Home Medications Home Medications: Ambulatory Orders Calcium Carbonate/Vitamin D3 [Calcium 600-Vit D3 200 Tablet] 1 each PO HS Carvedilol [Coreg] 6.25 mg PO DAILY 07/05/14 Folic Acid - 1 mg PO DAILY 07/05/14 Warfarin Sodium [Coumadin] 10 mg PO HS 07/05/14 Aspirin [ASA -] 81 mg PO DAILY 12/26/14 Famotidine 40 mg PO DAILY 12/26/14 Carvedilol [Coreg -] 3.125 mg PO DAILY 01/20/17 predniSONE [Deltasone -] 5 mg PO DAILY 01/20/17 Benztropine Mesylate 0.5 mg PO HS 04/06/17 Propranolol HCl 10 mg PO BID 04/06/17 Azathioprine [Imuran -] 125 mg PO DAILY tablet 04/12/17 Miscellaneous Medical Supply [Outpatient Order] 1 each ASDIR #1 mis Physical Therapy Order 1 each ASDIR #1 order 10/04/17 Family Disease History - Family Disease History Family Disease History: Diabetes: Mother, Heart Disease: Father (NM, HTN) Review of Systems - Review of Systems Constitutional: reports: Weakness Eyes: reports: No Symptoms HENT: reports: No Symptoms Neck: reports: No Symptoms Cardiovascular: reports: Chest Pain Musculoskeletal: reports: Muscle Weakness Neurological: reports: Weakness Psychiatric: reports: Other - Risk Factors Known Risk Factors: Yes: Age, Gender, Hypercholesterolemia, Hypertension, Physical Inactivity, Race, Other (arteritis; s/p aortic root replacement; s/p metallic aortic valve) Vital Signs: Vital Signs Temperature 97.7 F 10/14/17 06:00 Pulse Rate 74 10/14/17 06:00 Respiratory Rate 18 10/14/17 06:00 Blood Pressure 142/69 10/14/17 06:00 O2 Sat by Pulse Oximetry (%) 99 10/14/17 04:07 Constitutional: Yes: Anxious Eyes: Yes: WNL HENT: Yes: WNL Neck: Yes: WNL Respiratory: Yes: WNL Gastrointestinal: Yes: Soft, Distention Renal/: No: Anuria JVD: No Carotid Bruit: No PMI: Displaced Heart Sounds: Yes: S1 (incresaeed intensity), Split S2 Murmur: Yes: Diastolic Murmur, Grade 2 Musculoskeletal: Yes: Muscle Weakness Extremities: Yes: Cool Edema: No Peripheral Pulses WNL: Yes Integumentary: Yes: Bruising (right forearm) Neurological: Yes: Alert, Oriented, Weakness Psychiatric: Yes: Other - Other Data Labs, Other Data: CBC, BMP 10/13/17 14:30 10/13/17 14:30 INR, PTT INR 6.96 (0.82-1.09) H* D 10/13/17 14:30 Troponin, BNP 10/13/17 10/13/17 14:30 15:15 Troponin I < 0.02 B-Natriuretic Peptide 82.52 Troponin, BNP 10/13/17 10/13/17 14:30 15:15 Troponin I < 0.02 B-Natriuretic Peptide 82.52 Abnormal Lab Results 10/14/17 10/14/17 10/15/17 07:58 18:30 10:25 PT with INR INR PTT (Actin FS) 51.3 H D Potassium 3.3 L Anion Gap 7 L 6 L Random Glucose 61 L D Calcium 8.4 L 8.4 L Phosphorus 2.2 L D Total Bilirubin 1.4 H D 10/15/17 10:25 PT with INR 16.50 H INR 1.46 H PTT (Actin FS) 49.0 H Potassium Anion Gap Random Glucose Calcium Phosphorus Total Bilirubin Problem List - Problems (1) Fatigue Code(s): R53.83 - OTHER FATIGUE Qualifiers: Fatigue type: unspecified Qualified Code(s): R53.83 - Other fatigue (2) Supratherapeutic INR Assessment/Plan: Pt's warfarin held; received vitamin K. Keep INR 2.5-3.5 (metallic aortic valve replacement); also on ASA 81 mg daily. Code(s): R79.1 - ABNORMAL COAGULATION PROFILE (3) Takayasu's arteritis Code(s): M31.4 - AORTIC ARCH SYNDROME [TAKAYASU] (4) History of psychiatric disorder Assessment/Plan: for psychologica/psychiatrc followup.(please see "PMHx"). Code(s): Z86.59 - PERSONAL HISTORY OF OTHER MENTAL AND BEHAVIORAL DISORDERS
[2017-10-14 08:22] LABS: HEMATOCRIT 38.5 % (35.4-49); HEMOGLOBIN 12.8 GM/dL (11.7-16.9); MCH 30.7 pg (25.7-33.7); MCHC 33.2 g/dl (32.0-35.9); MEAN CELL VOLUME 92.4 fl (80-96); MEAN PLT VOLUME 7.2 fl (7.5-11.1); PLATELET COUNT 318 K/MM3 (134-434); RBC 4.17 M/mm3 (4.00-5.60); RDW 15.7 % (11.9-15.9); WHITE BLOOD COUNT 7.9 K/mm3 (4.0-10.0)
[2017-10-14 08:53] LABS: CHLORIDE 105 mmol/L (98-107); POTASSIUM 3.3 mmol/L (3.5-5.1); SODIUM 142 mmol/L (136-145)
[2017-10-14 08:59] LABS: INR 1.41 (0.82-1.09); PROTHROMBIN TIME (PATIENT) 15.9 SEC (9.7-13.0)
[2017-10-14 09:12] LABS: ALBUMIN 3.7 g/dl (3.4-5.0); ALK PHOS 54 U/L (45-117); ANION GAP 7 (8-16); BILIRUBIN,TOTAL 1.4 mg/dL (0.2-1.0); BLOOD UREA NITROGEN 14 mg/dL (7-18); CALCIUM 8.4 mg/dL (8.5-10.1); CO2 30 mmol/L (21-32); CREATININE 0.9 mg/dL (0.7-1.3); GLUCOSE,RANDOM 61 mg/dL (74-106); MAGNESIUM 2.2 mg/dL (1.8-2.4); PHOSPHOROUS 2.2 mg/dL (2.5-4.9); SGOT/AST 19 U/L (15-37); SGPT/ALT 12 U/L (12-78)
[2017-10-14] MEDS ORDERED: CARVEDILOL 12.5 MG TABLET (FP) PO SCH (10:00)
--- NOTE | 2017-10-14 10:31 | PN ---
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 INR 6, took last coumadin dose yesterday. S/p recent admission for supratherapeutic INR, was 2.6 on discharge 10/04. No active bleed. Refuses rectal exam. Will hold coumadin and give dose or vit K and continue to monitor INR inhouse. No indication for FFP at this time. EKG and rest of labs unremarkable. CXR read as ?residual mild atelectasis vs infiltrates to L midlung. Clinically, no suspicion for pneumonia at this time given no cough or fever. Will hold off on antibiotics at this time - Current Medication List Current Medications: Active Medications Aspirin (Asa -) 81 mg PO DAILY [facility] Azathioprine (Imuran -) 125 mg PO DAILY [facility] Benztropine Mesylate (Cogentin -) 0.5 mg PO HS [facility] Carvedilol (Coreg -) 9.375 mg PO DAILY [facility] Folic Acid (Folic Acid -) 1 mg PO DAILY [facility] Prednisone (Deltasone -) 5 mg PO DAILY [facility] Propranolol HCl (Inderal -) 10 mg PO BID [facility] Last Admin: 10/13/17 22:04 Dose: 10 mg Ranitidine HCl (Zantac -) 300 mg PO DAILY [facility] - Objective Vital Signs: Vital Signs Temperature 97.7 F 10/14/17 06:00 Pulse Rate 74 10/14/17 06:00 Respiratory Rate 18 10/14/17 06:00 Blood Pressure 142/69 10/14/17 06:00 O2 Sat by Pulse Oximetry (%) 99 10/14/17 04:07 Eyes: Yes: WNL, Conjunctiva Clear, EOM Intact HENT: Yes: WNL, Atraumatic, Normocephalic Neck: Yes: WNL, Supple, Trachea Midline Cardiovascular: Yes: Murmur, S1, S2 Respiratory: Yes: WNL, Regular, CTA Bilaterally Gastrointestinal: Yes: WNL, Normal Bowel Sounds Genitourinary: Yes: WNL Musculoskeletal: Yes: WNL Extremities: Yes: WNL Edema: No Integumentary: Yes: WNL Neurological: Yes: WNL, Alert, Oriented ...Motor Strength: WNL Psychiatric: Yes: WNL Labs: CBC, BMP 10/14/17 07:58 10/14/17 07:58 INR, PTT INR 1.41 (0.82-1.09) H D 10/14/17 07:58 Assessment/Plan Pt is a 37 yr old black man with PMHx Takayasu's arteritis requiring complex surgeries for aortic root replacement and aortic valve replacement,who now came to ER with weakness. INR 6, took last coumadin dose yesterday. S/p recent admission for supratherapeutic INR, was 2.6 on discharge 10/04. No active bleed. Refuses rectal exam. Will hold coumadin and give dose or vit K and continue to monitor INR inhouse. No indication for FFP at this time. EKG and rest of labs unremarkable. CXR read as ?residual mild atelectasis vs infiltrates to L midlung. Clinically, no suspicion for pneumonia at this time given no cough or fever. Will hold off on antibiotics at this time inr subtherapeutic cont AC start iv heparine restart coumadin
[2017-10-14] MEDS: ASPIRIN 81 MG CHEWABLE TABLETS PO SCH (10:33)
[2017-10-14] MEDS: RANITIDINE HCL 150 MG TABLET (FP) PO SCH (10:33)
[2017-10-14] MEDS: FOLIC ACID 1 MG TABLET (FP) PO SCH (10:33)
[2017-10-14] MEDS: CARVEDILOL 3.125 MG TABLET (FP) PO SCH (10:33)
[2017-10-14] MEDS: predniSONE 5 MG TABLET (UD) PO SCH (10:33)
[2017-10-14] MEDS ORDERED: PT OWN MED DRAWER 7, Y5N ONE (10:35)
[2017-10-14] MEDS ORDERED: HEPARIN NA (PORCINE) 5,000 UNITS/ML 1ML VIAL IVPUSH PRN ×2 (10:45)
[2017-10-14] MEDS: HEPARIN INFUSION - 25,000 UNITS/500 ML INFUS.BAG IVPB SCH (12:26)
[2017-10-14] MEDS ORDERED: POTASSIUM CHLORIDE TABS 20 MEQ TABLET.ER (FP) PO ONE (13:11)
[2017-10-14] MEDS: azaTHIOprine 50 MG TABLET PO SCH (13:53)
--- NOTE | 2017-10-14 15:25 | PN ---
Physical Exam: SUBJECTIVE: Patient seen and examined at bedside. States that yesterday, he developed palpitations, dizziness, and became worried. For this reason, pt went to his physician for further evaluation and was sent to the ED. Overnight, on tele monitor pt with episode of tachycardia 130-140's, as well as PVC's. Today, pt without physical complaint. Denies CARBAJAL, fever, chills, current palpitations, or changes in urinary or bowel function. OBJECTIVE: Vital Signs Period Temp Pulse Resp BP Sys/Tucker Pulse Ox Last 24 Hr 97.7 F-98.2 F 63-89 18-20 105-150/45-76 98-100 GENERAL: The patient is resting comfortably. awake, alert, and fully oriented, in no acute distress. HEAD: Normal with no signs of trauma. EYES: PERRL, extraocular movements intact, sclera anicteric, conjunctiva clear. ENT: Ears normal, nares patent, oropharynx clear without exudates, moist mucous membranes. NECK: Trachea midline, supple. CHEST: +vertical, hyperpigmented sternotomy scar LUNGS: Breath sounds equal, clear to auscultation bilaterally, no wheezes, no crackles, no accessory muscle use. +Poor inspiratory effort HEART: Regular rate and rhythm, S1, S2 with +diastolic mitral murmur. + click appreciated ABDOMEN: Soft, nontender, nondistended, normoactive bowel sounds, no guarding, no rebound EXTREMITIES: 2+ pt pulses, warm, well-perfused, no edema. NEUROLOGICAL: Cranial nerves II through XII grossly intact. 5/5 motor strength in upper and lower extremities, with sensation intact. Normal speech PSYCH: Normal mood, normal affect. SKIN: +atrophic - upper extremities Laboratory Results - last 24 hr 10/13/17 10/13/17 10/14/17 14:30 15:15 07:58 WBC 7.9 RBC 4.17 Hgb 12.8 Hct 38.5 MCV 92.4 MCH 30.7 MCHC 33.2 RDW 15.7 Plt Count 318 MPV 7.2 L PT with INR AST Alkaline Phosphatase B-Natriuretic Peptide 82.52 Total Protein Albumin Vitamin B12 TSH Blood Type A POSITIVE Antibody Screen Negative 10/14/17 10/14/17 07:58 07:58 Hgb MPV PT with INR 15.90 H INR 1.41 H D Sodium 142 Potassium 3.3 L Chloride 105 Carbon Dioxide 30 Anion Gap 7 L BUN 14 Creatinine 0.9 Creat Clearance w eGFR > 60 Random Glucose 61 L D Calcium 8.4 L Phosphorus 2.2 L D Magnesium 2.2 Total Bilirubin 1.4 H D AST 19 ALT 12 Alkaline Phosphatase 54 B-Natriuretic Peptide Total Protein 7.0 Albumin 3.7 Vitamin B12 688 TSH 1.22 Antibody Screen Active Medications Generic Name Dose Route Start Last Admin Trade Name Freq PRN Reason Stop Dose Admin Aspirin 81 mg 10/14/17 10:00 10/14/17 10:33 Asa - PO 81 mg DAILY [facility] Administration Azathioprine 125 mg 10/14/17 10:00 10/14/17 13:53 Imuran - PO 125 mg DAILY [facility] Administration Benztropine Mesylate 0.5 mg 10/13/17 22:00 Cogentin - PO HS [facility] Carvedilol 9.375 mg 10/14/17 10:00 10/14/17 10:33 Coreg - PO 9.375 mg DAILY [facility] Administration Folic Acid 1 mg 10/14/17 10:00 10/14/17 10:33 Folic Acid - PO 1 mg DAILY [facility] Administration Heparin Sodium (Porcine) 1,000 unit 10/14/17 10:45 Heparin - IVPUSH PRN PRN Heparin Heparin Sodium (Porcine) 5,000 unit 10/14/17 10:45 Heparin - IVPUSH PRN PRN Heparin Heparin Sodium/Dextrose 25,000 units in 500 mls @ 20 mls/hr 10/14/17 10:45 12:26 Heparin Infusion - IVPB 1,000 units/hr TITR [facility] 20 mls/hr Administration Protocol 1,000 UNITS/HR Prednisone 5 mg 10/14/17 10:00 10/14/17 10:33 Deltasone - PO 5 mg DAILY [facility] Administration Propranolol HCl 10 mg 10/13/17 22:00 10/14/17 10:36 Inderal - PO 10 mg BID [facility] Administration Ranitidine HCl 300 mg 10/14/17 10:00 10/14/17 10:33 Zantac - PO 300 mg DAILY [facility] Administration IMAGING 10/13/17: CXR interval better aeration of the left lung with residual mild atelectatic changes versus infiltrates in the left midlung with minimal left pleural effusion. 10/14/17: ECHO: EF 68.7%, mechanical aortic valve confirmed, prosthetic aortic valve well-seated, severe aortic root dilation. 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 #Supratherapeutic INR -possible coumadin dose needs adjustment; second admission for suprather INR -on this admission, initial 6.96. Currently 1.41 -started on hep gtt for a/c until therapeutic 2.5-3 -will hold coumadin 10mg PO qd -continue to follow INR daily -Cardio consult- Dr. Mora -telemetry monitoring #New onset fatigue and weakness r/o cardiac cause -May be 2/2 issues concerning valve -ECHO: with severe aortic root dilation, however EF 68.7 -F/u TSH level -B12 WNL (688) #Initial normocytic anemia-resolving -Continue folic acid 1mg PO qd #Anxiety, depression -Continue cogentin 0.5mg PO qHS -Psych consult- Dr. Singh to determine competency #hx Takayasu arteritis -Continue azathioprine 125 mg PO qd -Prednisone 5mg PO qd -GI ppx ranitidine 300 mg PO qd #Hx aortic valve repair -Continue aspirin 81mg PO qd -coreg 9.375mg qd -prior INR goal 2.5-3 #HTN- currently uncontrolled -likely 2/2 stress -Continue propanolol 10mg PO BID -will continue to monitor #Hypokalemia -K 3.3 -Repleted with 40mEq Kdur PO #F/E/N -Encourage PO intake -Continue to follow lytes -Na controlled diet #PPX DVT: on hep gtt GI: ranitidine 300mg PO qd #Dispo Continued tele monitoring PT Visit type - Emergency Visit Emergency Visit: No - New Patient This patient is new to me today: No - Critical Care Critical Care patient: No
[2017-10-14] MEDS ORDERED: CARVEDILOL 3.125 MG TABLET (FP) PO SCH (18:00)
[2017-10-14] MEDS ORDERED: WARFARIN NA 7.5 MG TABLET (FP) PO ONE ×2 (18:24→21:30)
--- NOTE | 2017-10-14 18:25 | PN ---
Teaching Attending Note Name of Resident: Jess Rocha ATTENDING PHYSICIAN STATEMENT I saw and evaluated the patient. I reviewed the resident's note and discussed the case with the resident. I agree with the resident's findings and plan as documented. SUBJECTIVE: no CP or SOB. no fever or chills. denies any bleeding . felt fatigue at home . reports that his RN heard " palpitations " when examined him OBJECTIVE: NAD , AAOx3 no facial droop. MMM CV: RRR, 3/6 DM at RUSB and LLSB. Abd: soft, NT, Nd, NL Bs Skin: striae all over body Ext: no edema or erythema over LE . R for arm with bruising, but no edema. ASSESSMENT AND PLAN: 37 y/o man with h/o Takayasu 's, HTN, Thoracic aortic aneurysm repair, mechanical aortic valve replacement, and a recent admission for a prolonged INR who presented due to fatigue and concern for palpitations 1-Coumadin coagulopathy: INR 1.4 after IvVit K in ER - start heparin gtt - give 7.5 of coumadin tonight - will probably require lower doses of coumadin ( home dose 10 ) - goal INR 2.5-3 2- Fatigue: ? due to steroids. No evidence of infection . - check B12 - check TSH. - echo with no vegetation 3- h/o mechanical AVR : - heparin to coumadin as above 4- TAkayasu's : - cont prednisone - cont azathioprine 5- HTN: cont Coreg and propranolol 6- psych eval . dispo : [facility]
--- NOTE | 2017-10-14 18:56 | CON.PSY ---
Psychiatry Consult Chief Complaint: 37 year old AA male with Takayasu Arteritis and ? DEpression and ? Schizop[hrenia seen for psuch chelsea. Patient has a degree in Social studies and [employer] and [employer]. Currantly on no psych meds. - Previous Psychiatric Treatment Outpatient: More than 6 mos ago Inpatient: None - Previous Substance Abuse Treatment Outpatient: None Inpatient: None - Current Medications Current Medications: Active Medications Aspirin (Asa -) 81 mg PO DAILY [facility] Last Admin: 10/14/17 10:33 Dose: 81 mg Azathioprine (Imuran -) 125 mg PO DAILY [facility] Last Admin: 10/14/17 13:53 Dose: 125 mg Benztropine Mesylate (Cogentin -) 0.5 mg PO [facility] Carvedilol (Coreg -) 9.375 mg PO DAILY [facility] Last Admin: 10/14/17 10:33 Dose: 9.375 mg Folic Acid (Folic Acid -) 1 mg PO DAILY [facility] Last Admin: 10/14/17 10:33 Dose: 1 mg Heparin Sodium (Porcine) (Heparin -) 1,000 unit IVPUSH PRN PRN PRN Reason: Heparin Heparin Sodium (Porcine) (Heparin -) 5,000 unit IVPUSH PRN PRN PRN Reason: Heparin Heparin Sodium/Dextrose (Heparin Infusion -) 25,000 units in 500 mls @ 20 mls/ hr IVPB TITR [facility]; Protocol Last Admin: 10/14/17 12:26 Dose: 1,000 units/hr, 20 mls/hr Prednisone (Deltasone -) 5 mg PO DAILY [facility] Last Admin: 10/14/17 10:33 Dose: 5 mg Propranolol HCl (Inderal -) 10 mg PO BID [facility] Last Admin: 10/14/17 10:36 Dose: 10 mg Ranitidine HCl (Zantac -) 300 mg PO DAILY [facility] Last Admin: 10/14/17 10:33 Dose: 300 mg Warfarin Sodium (Coumadin -) 7.5 mg PO DAILY@1800 [facility] - Allergies Allergies: Allergies Allergy/AdvReac Type Severity Reaction Status Date / Time lactose Allergy Verified 10/13/17 13:35 No Known Drug Allergies Allergy Verified 10/13/17 13:35 orange Allergy Mild Uncoded 10/13/17 13:35 - Current Living Status Usual Living Arrangement: Alone - Current Mental Status Evaluation Appearance: Well Groomed Attitude: Cooperative - Affect Affect: Constrictive Appropriateness: Appropriate to Content - Mood Mood: Euthymic - Speech/Language Expressive: Coherent - Psychomotor Activity Psychomotor Activity: Normal - Thought Process Thought Process: Intact - Thought Content Hallucinations: Absent Delusions: Absent - Self Perception Self Perception: No Impairment - Cognition Attention: Alert Orientation: Time Memory, Immediate Recall: Intact Memory, Short Term: 2/3 Memory, Remote with Promptin/3 - Concentration Serial Sevens Intact: Yes Simple Calculations Intact: Yes - Abstraction Proverb Interpretation: Intact Judgement: Intact - Insight Insight: Intact - Impulse Control Impulse Control: Good Control - Suicidal Ideation Suicidal Ideation: No - Homicidal Ideation Homicidal Ideation: No Assessment/Plan 1) Patient is not on any psych meds. 2) Patient has the mental capacity to make informed decisions at this time.
[2017-10-14] MEDS: BENZTROPINE MESYLATE 0.5 MG TABLET (FP) PO SCH ×2 (22:05)
[2017-10-15] MEDS: CARVEDILOL 3.125 MG TABLET (FP) PO SCH (09:04)
[2017-10-15] MEDS: RANITIDINE HCL 150 MG TABLET (FP) PO SCH (09:04)
[2017-10-15] MEDS: azaTHIOprine 50 MG TABLET PO SCH (09:04)
[2017-10-15] MEDS: FOLIC ACID 1 MG TABLET (FP) PO SCH (09:04)
[2017-10-15] MEDS: ASPIRIN 81 MG CHEWABLE TABLETS PO SCH (09:04)
[2017-10-15] MEDS: predniSONE 5 MG TABLET (UD) PO SCH (09:05)
[2017-10-15 10:43] LABS: EOS % 0.9 % (0-4.5); HEMATOCRIT 40.4 % (35.4-49); HEMOGLOBIN 13.3 GM/dL (11.7-16.9); LYMPH % 17.6 % (8-40); MCH 30.3 pg (25.7-33.7); MEAN CELL VOLUME 91.9 fl (80-96); MEAN PLT VOLUME 7.7 fl (7.5-11.1); MONO % 7.7 % (3.8-10.2); NEUT % 72.8 % (42.8-82.8); PLATELET COUNT 330 K/MM3 (134-434); RBC 4.39 M/mm3 (4.00-5.60); RDW 15.6 % (11.9-15.9); WHITE BLOOD COUNT 7.8 K/mm3 (4.0-10.0)
[2017-10-15] MEDS: HEPARIN INFUSION - 25,000 UNITS/500 ML INFUS.BAG IVPB SCH (11:00)
[2017-10-15 11:06] LABS: INR 1.46 (0.82-1.09); PROTHROMBIN TIME (PATIENT) 16.5 SEC (9.7-13.0)
[2017-10-15 11:13] LABS: ANION GAP 6 (8-16); CALCIUM 8.4 mg/dL (8.5-10.1); CHLORIDE 105 mmol/L (98-107); CO2 27 mmol/L (21-32); CREATININE 0.7 mg/dL (0.7-1.3); GLUCOSE,RANDOM 81 mg/dL (74-106); PHOSPHOROUS 2.8 mg/dL (2.5-4.9); POTASSIUM 4.1 mmol/L (3.5-5.1); SODIUM 138 mmol/L (136-145)
[2017-10-15 13:03] LABS: BLOOD UREA NITROGEN 14 mg/dL (7-18)
--- NOTE | 2017-10-15 13:30 | EKG ---
Test Reason : Blood Pressure : / mmHG Vent. Rate : 070 BPM Atrial Rate : 070 BPM P-R Int : 152 ms QRS Dur : 102 ms QT Int : 386 ms P-R-T Axes : 056 001 014 degrees QTc Int : 416 ms NORMAL SINUS RHYTHM VOLTAGE CRITERIA FOR LEFT VENTRICULAR HYPERTROPHY ABNORMAL ECG WHEN COMPARED WITH ECG OF 13-OCT-2017 14:30, NO SIGNIFICANT CHANGE WAS FOUND Confirmed by MERT OJEAD MD ([id number]) on 10/15/2017 1:30:13 PM Referred By: Confirmed By:MERT OJEDA MD
--- NOTE | 2017-10-15 13:43 | PN ---
Progress Note, Physician Chief Complaint: Pt ambulatory; denies cheswt pain or dyspnea. Feels stronger. History of Present Illness: Pt is a 37 yr old black man with PMHx Takayasu's arteritis requiring complex surgeries for aortic root replacement and aortic valve replacement, psychiatric disorder ("catatonia"),who now came to ER with weakness. INR 6, took last coumadin dose yesterday. S/p recent admission for supratherapeutic INR, was 2.6 on discharge 10/04. No active bleed. Refuses rectal exam. Will hold coumadin and give dose or vit K and continue to monitor INR inhouse. No indication for FFP at this time. EKG and rest of labs unremarkable. CXR read as ?residual mild atelectasis vs infiltrates to L midlung. Clinically, no suspicion for pneumonia at this time given no cough or fever. Will hold off on antibiotics at this time As discussed with his PMD, Dr. Vickie Ozuna, pt was recently admiited in [facility] for medical reasons, but required transfer to the psychiatric unit. He was reportedly "catatonic", and required a court order to have have him take his medications. - Current Medication List Current Medications: Active Medications Aspirin (Asa -) 81 mg PO DAILY [facility] Last Admin: 10/15/17 09:04 Dose: 81 mg Azathioprine (Imuran -) 125 mg PO DAILY [facility] Last Admin: 10/15/17 09:04 Dose: 125 mg Benztropine Mesylate (Cogentin -) 0.5 mg PO HS [facility] Last Admin: 10/14/17 22:05 Dose: 0.5 mg Carvedilol (Coreg -) 9.375 mg PO DAILY [facility] Last Admin: 10/15/17 09:04 Dose: 9.375 mg Folic Acid (Folic Acid -) 1 mg PO DAILY [facility] Last Admin: 10/15/17 09:04 Dose: 1 mg Heparin Sodium (Porcine) (Heparin -) 1,000 unit IVPUSH PRN PRN PRN Reason: Heparin Last Admin: 10/15/17 12:00 Dose: 1,000 unit Heparin Sodium (Porcine) (Heparin -) 5,000 unit IVPUSH PRN PRN PRN Reason: Heparin Heparin Sodium/Dextrose (Heparin Infusion -) 25,000 units in 500 mls @ 20 mls/ hr IVPB TITR [facility]; Protocol Last Admin: 10/15/17 11:00 Dose: 1,100 units/hr, 22 mls/hr Prednisone (Deltasone -) 5 mg PO DAILY [facility] Last Admin: 10/15/17 09:05 Dose: 5 mg Propranolol HCl (Inderal -) 10 mg PO BID [facility] Last Admin: 10/15/17 09:05 Dose: 10 mg Ranitidine HCl (Zantac -) 300 mg PO DAILY [facility] Last Admin: 10/15/17 09:04 Dose: 300 mg Warfarin Sodium (Coumadin -) 7.5 mg PO DAILY@1800 [facility] - Objective Vital Signs: Vital Signs Temperature 98.1 F 10/15/17 10:00 Pulse Rate 67 10/15/17 10:00 Respiratory Rate 18 10/15/17 10:00 Blood Pressure 121/57 10/15/17 10:00 O2 Sat by Pulse Oximetry (%) 99 10/15/17 10:00 Constitutional: Yes: No Distress Eyes: Yes: WNL HENT: Yes: WNL Neck: Yes: WNL Cardiovascular: Yes: Regular Rate and Rhythm Respiratory: Yes: Regular Gastrointestinal: Yes: Soft ...Rectal Exam: Yes: Deferred Genitourinary: No: Anuria Musculoskeletal: Yes: Muscle Weakness Extremities: Yes: Cool Edema: No Peripheral Pulses WNL: No Integumentary: Yes: Bruising Neurological: Yes: Alert, Oriented, Weakness Psychiatric: Yes: Other Labs: CBC, BMP 10/15/17 10:25 10/15/17 10:25 INR, PTT INR 1.46 (0.82-1.09) H 10/15/17 10:25 Abnormal Lab Results 10/15/17 10/15/17 10/15/17 10:25 10:25 17:35 MPV PT with INR 16.50 H INR 1.46 H PTT (Actin FS) 49.0 H 87.8 H D Anion Gap 6 L Calcium 8.4 L 10/16/17 10/16/17 10/16/17 06:57 06:57 06:57 MPV 7.3 L PT with INR 23.70 H INR 2.10 H D PTT (Actin FS) 85.6 H Anion Gap Calcium Problem List - Problems (1) Fatigue Code(s): R53.83 - OTHER FATIGUE Qualifiers: Fatigue type: unspecified Qualified Code(s): R53.83 - Other fatigue (2) Supratherapeutic INR Assessment/Plan: Pt's warfarin held; received vitamin K. Now on warfarin again. Keep INR 2.5-3.5 (metallic aortic valve replacement); also on ASA 81 mg daily. On IV heparin until INR therapeutic. Code(s): R79.1 - ABNORMAL COAGULATION PROFILE (3) Takayasu's arteritis Assessment/Plan: Pt to f/u with surgeon as outpatient. Code(s): M31.4 - AORTIC ARCH SYNDROME [TAKAYASU] (4) History of psychiatric disorder Assessment/Plan: Psychiatric consult noted. Code(s): Z86.59 - PERSONAL HISTORY OF OTHER MENTAL AND BEHAVIORAL DISORDERS
--- NOTE | 2017-10-15 14:23 | PN ---
Teaching Attending Note Name of Resident: Jess Rocha ATTENDING PHYSICIAN STATEMENT I saw and evaluated the patient. I reviewed the resident's note and discussed the case with the resident. I agree with the resident's findings and plan as documented. SUBJECTIVE: No fever or chills . No CP or palpitations. OBJECTIVE: NAD , AAOx3 no facial droop. MMM CV: RRR, 3/6 DM at RUSB and LLSB. Skin: striae all over body Ext: no edema or erythema over LE . R for arm with bruising, but no edema. ASSESSMENT AND PLAN: 37 y/o man with h/o Takayasu 's, HTN, Thoracic aortic aneurysm repair, mechanical aortic valve replacement, and a recent admission for a prolonged INR who presented due to fatigue and concern for palpitations 1-Coumadin coagulopathy: INR 1.43 today - Cont heparin gtt - give 7.5 of coumadin tonight again - goal INR 2.5-3 2- Fatigue: ? due to steroids. No evidence of infection . - B12 and TSH NL. 3- H/o mechanical AVR : - heparin to coumadin as above 4- TAkayasu's : - cont prednisone - cont azathioprine 5- HTN: cont Coreg and propranolol 6- Psych eval . has decision making capacity Dispo : OC
--- NOTE | 2017-10-15 14:44 | PN ---
Physical Exam: SUBJECTIVE: Patient seen and examined at bedside. No acute events overnight. On tele monitor, pt with one episode of tachy to 140's, as well as sporadic PVC's. Today, pt without physical complaint. Eating breakfast. Denies CARBAJAL, fever, chills , SOB, chest pain or changes in urinary or bowel function. OBJECTIVE: Vital Signs Period Temp Pulse Resp BP Sys/Tucker Pulse Ox Last 24 Hr 97.8 F-98.8 F 63-75 18-18 109-130/44-57 98-99 GENERAL: The patient is OOB in chair. awake, alert, and fully oriented, in no acute distress. HEAD: Normal with no signs of trauma. EYES: PERRL, extraocular movements intact, sclera anicteric, conjunctiva clear. ENT: Ears normal, nares patent, oropharynx clear without exudates, moist mucous membranes. NECK: Trachea midline, supple. LUNGS: Breath sounds equal, clear to auscultation bilaterally, no wheezes, no crackles, no accessory muscle use. HEART: +click appreciated over precordium. +3/6 diastolic murmur - mitral area. without rubs or gallops. ABDOMEN: Soft, nontender, nondistended, normoactive bowel sounds, no guarding, no rebound EXTREMITIES: 2+ dp, pt pulses, equal pulses. warm, well-perfused, no edema. NEUROLOGICAL: Cranial nerves II through XII grossly intact. PSYCH: Normal mood, normal affect. SKIN: Warm, dry, normal turgor Laboratory Results - last 24 hr 10/14/17 10/15/17 10/15/17 18:30 10:25 10:25 WBC 7.8 RBC 4.39 Hgb 13.3 Hct 40.4 MCV 91.9 MCH 30.3 MCHC 33.0 RDW 15.6 Plt Count 330 MPV 7.7 Neutrophils % 72.8 Lymphocytes % 17.6 D Monocytes % 7.7 Eosinophils % 0.9 Basophils % 1.0 Nucleated RBC % 0 PT with INR INR PTT (Actin FS) 51.3 H D Sodium 138 Potassium 4.1 D Chloride 105 Carbon Dioxide 27 Anion Gap 6 L BUN 14 Creatinine 0.7 D Random Glucose 81 D Calcium 8.4 L Phosphorus 2.8 D Magnesium 2.0 INR Trend 10/13/17 10/14/17 10/15/17 14:30 07:58 10:25 INR 6.96 H* D 1.41 H D 1.46 H Active Medications Generic Name Dose Route Start Last Admin Trade Name Freq PRN Reason Stop Dose Admin Aspirin 81 mg 10/14/17 10:00 10/15/17 09:04 Asa - PO 81 mg DAILY [facility] Administration Azathioprine 125 mg 10/14/17 10:00 10/15/17 09:04 Imuran - PO 125 mg DAILY [facility] Administration Benztropine Mesylate 0.5 mg 10/13/17 22:00 10/14/17 22:05 Cogentin - PO 0.5 mg HS [facility] Administration Carvedilol 9.375 mg 10/14/17 10:00 10/15/17 09:04 Coreg - PO 9.375 mg DAILY [facility] Administration Folic Acid 1 mg 10/14/17 10:00 10/15/17 09:04 Folic Acid - PO 1 mg DAILY [facility] Administration Heparin Sodium (Porcine) 1,000 unit 10/14/17 10:45 10/15/17 12:00 Heparin - IVPUSH 1,000 unit PRN PRN Administration Heparin Heparin Sodium (Porcine) 5,000 unit 10/14/17 10:45 Heparin - IVPUSH PRN PRN Heparin Heparin Sodium/Dextrose 25,000 units in 500 mls @ 20 mls/hr 10/14/17 10:45 11:00 Heparin Infusion - IVPB 1,100 units/hr TITR [facility] 22 mls/hr Administration Protocol 1,000 UNITS/HR Prednisone 5 mg 10/14/17 10:00 10/15/17 09:05 Deltasone - PO 5 mg DAILY [facility] Administration Propranolol HCl 10 mg 10/13/17 22:00 10/15/17 09:05 Inderal - PO 10 mg BID [facility] Administration Ranitidine HCl 300 mg 10/14/17 10:00 10/15/17 09:04 Zantac - PO 300 mg DAILY [facility] Administration Warfarin Sodium 7.5 mg 10/15/17 18:00 Coumadin - PO DAILY@1800 [facility] IMAGING 10/13/17: CXR interval better aeration of the left lung with residual mild atelectatic changes versus infiltrates in the left midlung with minimal left pleural effusion. 10/14/17: ECHO: EF 68.7%, mechanical aortic valve confirmed, prosthetic aortic valve well-seated, severe aortic root dilation. 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 #Supratherapeutic INR-improving -coumadin dose needs adjustment; second admission for suprather INR -on this admission, initial 6.96. Currently 1.46 -started on hep gtt for a/c until therapeutic 2.5-3 -bridging with coumadin 7.5mg PO qd -continue to follow INR daily. Once therapeutic, will continue with coumadin 7.5 -Cardio consult- Dr. Mora -telemetry monitoring #New onset fatigue and weakness r/o cardiac cause -May be 2/2 issues concerning valve -continue folic acid 1mg PO qd -ECHO: with severe aortic root dilation, however EF 68.7 -F/u TSH level -B12 WNL (688) #Anxiety, depression -Continue cogentin 0.5mg PO qHS -Psych consult- Dr. Singh; pt with competency to make own decisions #hx Takayasu arteritis -Continue azathioprine 125 mg PO qd -Prednisone 5mg PO qd -GI ppx ranitidine 300 mg PO qd #Hx aortic valve repair -Continue aspirin 81mg PO qd -coreg 9.375mg qd -prior INR goal 2.5-3 #HTN- currently uncontrolled -likely 2/2 stress -Continue propanolol 10mg PO BID -will continue to monitor #Hypokalemia- resolved #F/E/N -Encourage PO intake -Continue to follow lytes -Na controlled diet #PPX DVT: on hep gtt/coumadin 7.5mg PO qd GI: ranitidine 300mg PO qd #Dispo Continued tele monitoring PT Visit type - Emergency Visit Emergency Visit: No - New Patient This patient is new to me today: No - Critical Care Critical Care patient: No
[2017-10-15] MEDS: WARFARIN NA 7.5 MG TABLET (FP) PO SCH (18:07)
[2017-10-15] MEDS: BENZTROPINE MESYLATE 0.5 MG TABLET (FP) PO SCH (21:58)
[2017-10-16 07:19] LABS: EOS % 0.8 % (0-4.5); HEMATOCRIT 39.8 % (35.4-49); HEMOGLOBIN 13.3 GM/dL (11.7-16.9); LYMPH % 20.8 % (8-40); MCH 30.6 pg (25.7-33.7); MCHC 33.4 g/dl (32.0-35.9); MEAN CELL VOLUME 91.7 fl (80-96); MEAN PLT VOLUME 7.3 fl (7.5-11.1); MONO % 9.9 % (3.8-10.2); NEUT % 67.5 % (42.8-82.8); PLATELET COUNT 298 K/MM3 (134-434); RBC 4.34 M/mm3 (4.00-5.60); RDW 15.5 % (11.9-15.9); WHITE BLOOD COUNT 8.2 K/mm3 (4.0-10.0)
[2017-10-16 08:39] LABS: ANION GAP 9 (8-16); BLOOD UREA NITROGEN 12 mg/dL (7-18); CALCIUM 8.6 mg/dL (8.5-10.1); CHLORIDE 105 mmol/L (98-107); CO2 25 mmol/L (21-32); CREATININE 0.7 mg/dL (0.7-1.3); GLUCOSE,RANDOM 85 mg/dL (74-106); MAGNESIUM 1.9 mg/dL (1.8-2.4); PHOSPHOROUS 2.8 mg/dL (2.5-4.9); SODIUM 139 mmol/L (136-145)
[2017-10-16 09:06] LABS: INR 2.1 (0.82-1.09); PROTHROMBIN TIME (PATIENT) 23.7 SEC (9.7-13.0)
[2017-10-16] MEDS ORDERED: PT OWN MED DRAWER 7, Y5N ONE (09:20)
[2017-10-16] MEDS: HEPARIN INFUSION - 25,000 UNITS/500 ML INFUS.BAG IVPB SCH ×3 (09:30→17:30)
[2017-10-16] MEDS: ASPIRIN 81 MG CHEWABLE TABLETS PO SCH (09:39)
[2017-10-16] MEDS: CARVEDILOL 3.125 MG TABLET (FP) PO SCH (09:40)
[2017-10-16] MEDS: RANITIDINE HCL 150 MG TABLET (FP) PO SCH (09:41)
[2017-10-16] MEDS: predniSONE 5 MG TABLET (UD) PO SCH (09:41)
[2017-10-16] MEDS: FOLIC ACID 1 MG TABLET (FP) PO SCH (09:41)
[2017-10-16] MEDS: azaTHIOprine 50 MG TABLET PO SCH (09:44)
--- NOTE | 2017-10-16 12:05 | PN ---
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 INR 6, took last coumadin dose yesterday. S/p recent admission for supratherapeutic INR, was 2.6 on discharge 10/04. No active bleed. Refuses rectal exam. Will hold coumadin and give dose or vit K and continue to monitor INR inhouse. No indication for FFP at this time. EKG and rest of labs unremarkable. CXR read as ?residual mild atelectasis vs infiltrates to L midlung. Clinically, no suspicion for pneumonia at this time given no cough or fever. Will hold off on antibiotics at this time - Current Medication List Current Medications: Active Medications Aspirin (Asa -) 81 mg PO DAILY [facility] Last Admin: 10/16/17 09:39 Dose: 81 mg Azathioprine (Imuran -) 125 mg PO DAILY [facility] Last Admin: 10/16/17 09:44 Dose: 125 mg Benztropine Mesylate (Cogentin -) 0.5 mg PO HS [facility] Last Admin: 10/15/17 21:58 Dose: 0.5 mg Carvedilol (Coreg -) 9.375 mg PO DAILY [facility] Last Admin: 10/16/17 09:40 Dose: 9.375 mg Folic Acid (Folic Acid -) 1 mg PO DAILY [facility] Last Admin: 10/16/17 09:41 Dose: 1 mg Heparin Sodium (Porcine) (Heparin -) 1,000 unit IVPUSH PRN PRN PRN Reason: Heparin Last Admin: 10/15/17 12:00 Dose: 1,000 unit Heparin Sodium (Porcine) (Heparin -) 5,000 unit IVPUSH PRN PRN PRN Reason: Heparin Heparin Sodium/Dextrose (Heparin Infusion -) 25,000 units in 500 mls @ 20 mls/ hr IVPB TITR [facility]; Protocol Last Titration: 10/15/17 21:00 Dose: 1,000 units/hr, 20 mls/hr Prednisone (Deltasone -) 5 mg PO DAILY [facility] Last Admin: 10/16/17 09:41 Dose: 5 mg Propranolol HCl (Inderal -) 10 mg PO BID [facility] Last Admin: 10/16/17 09:44 Dose: 10 mg Ranitidine HCl (Zantac -) 300 mg PO DAILY [facility] Last Admin: 10/16/17 09:41 Dose: 300 mg Warfarin Sodium (Coumadin -) 7.5 mg PO DAILY@1800 [facility] Last Admin: 10/15/17 18:07 Dose: 7.5 mg - Objective Vital Signs: Vital Signs Temperature 98.0 F 10/16/17 05:35 Pulse Rate 66 10/16/17 05:35 Respiratory Rate 20 10/16/17 05:35 Blood Pressure 134/56 10/16/17 05:35 O2 Sat by Pulse Oximetry (%) 100 10/15/17 21:00 Eyes: Yes: WNL, Conjunctiva Clear, EOM Intact HENT: Yes: WNL, Atraumatic, Normocephalic Neck: Yes: WNL, Supple, Trachea Midline Cardiovascular: Yes: WNL, Murmur, S1, S2 Respiratory: Yes: WNL, Regular, CTA Bilaterally Gastrointestinal: Yes: WNL, Normal Bowel Sounds Genitourinary: Yes: WNL Musculoskeletal: Yes: WNL Extremities: Yes: WNL Edema: No Integumentary: Yes: WNL Neurological: Yes: WNL, Alert, Oriented ...Motor Strength: WNL Psychiatric: Yes: WNL Labs: CBC, BMP 10/16/17 06:57 10/16/17 06:57 INR, PTT INR 2.10 (0.82-1.09) H D 10/16/17 06:57 Assessment/Plan - Problems (1) Fatigue Code(s): R53.83 - OTHER FATIGUE Qualifiers: Fatigue type: unspecified Qualified Code(s): R53.83 - Other fatigue (2) Supratherapeutic INR Assessment/Plan: Pt's warfarin held; received vitamin K. Now on warfarin again. Keep INR 2.5-3.5 (metallic aortic valve replacement); also on ASA 81 mg daily. On IV heparin until INR therapeutic. Code(s): R79.1 - ABNORMAL COAGULATION PROFILE (3) Takayasu's arteritis Assessment/Plan: Pt to f/u with surgeon as outpatient. Code(s): M31.4 - AORTIC ARCH SYNDROME [TAKAYASU] (4) History of psychiatric disorder Assessment/Plan: Psychiatric consult noted. Code(s): Z86.59 - PERSONAL HISTORY OF OTHER MENTAL AND BEHAVIORAL DISORDERS
[2017-10-16] MEDS: WARFARIN NA 7.5 MG TABLET (FP) PO SCH (17:20)
--- NOTE | 2017-10-16 18:01 | PN ---
Teaching Attending Note Name of Resident: Jess Rocha ATTENDING PHYSICIAN STATEMENT I saw and evaluated the patient. I reviewed the resident's note and discussed the case with the resident. I agree with the resident's findings and plan as documented. SUBJECTIVE: No fever or chills. has no pain. OBJECTIVE: NAD , AAOx3 no facial droop. MMM CV: RRR, 3/6 DM at RUSB and LLSB. Skin: striae all over body Ext: no edema or erythema over LE . R for arm with dark bruising, but no edema. ASSESSMENT AND PLAN: 37 y/o man with h/o Takayasu 's, HTN, Thoracic aortic aneurysm repair, mechanical aortic valve replacement, and a recent admission for a prolonged INR who presented due to fatigue and concern for palpitations 1-Coumadin coagulopathy: INR 2.1 today - Cont heparin gtt - give 7.5 of coumadin tonight again - goal INR 2.5-3.5 2- Fatigue: ? due to steroids. No evidence of infection. - B12 and TSH NL. 3- H/o mechanical AVR : - heparin to coumadin as above 4- TAkayasu's : - cont prednisone - cont azathioprine 5- HTN: cont Coreg and propranolol 6- Psych eval . has decision making capacity Dispo : HLOC possible dc tomorrow
--- NOTE | 2017-10-16 18:21 | PN ---
Physical Exam: SUBJECTIVE: Patient seen and examined at bedside. Overnight, pt refusing PTT check. This AM, seeking to leave AMA d/t rent payment. However is staying. States that he feels well, and seen OOB, ambulating in hallway. Denies CARBAJAL, fever , chills, SOB, chest pain, bruising, or other physical complaints. OBJECTIVE: Vital Signs Period Temp Pulse Resp BP Sys/Tucker Pulse Ox Last 24 Hr 97.7 F-98.5 F 58-77 18-20 134-153/56-74 100-100 GENERAL: The patient is awake, alert, and fully oriented, in no acute distress. OOB in chair HEAD: Normal with no signs of trauma. EYES: PERRL, extraocular movements intact, sclera anicteric, conjunctiva clear. ENT: Ears normal, nares patent NECK: Trachea midline, supple. CHEST: +vertical hyperpigmented sternotomy scar LUNGS: Breath sounds equal, clear to auscultation bilaterally, no wheezes, no crackles, no accessory muscle use. +decreased inspiratory effort HEART: +aortic click heard over precordium, diastolic murmur in mitral-softer today. without rubs or gallops. ABDOMEN: Soft, nontender, nondistended EXTREMITIES: 2+ and equal dp pulses, warm, well-perfused, no edema. NEUROLOGICAL: Cranial nerves II through XII intact. PSYCH: anxious mood, normal affect. SKIN: Warm, dry, normal turgor Laboratory Results - last 24 hr 10/16/17 10/16/17 10/16/17 06:57 06:57 15:10 WBC 8.2 RBC 4.34 Hgb 13.3 Hct 39.8 MCV 91.7 MCH 30.6 MCHC 33.4 RDW 15.5 Plt Count 298 MPV 7.3 L Neutrophils % 67.5 Lymphocytes % 20.8 Monocytes % 9.9 Eosinophils % 0.8 Basophils % 1.0 Nucleated RBC % 0 PT with INR INR PTT (Actin FS) 76.9 H Sodium 139 Potassium 4.0 Chloride 105 Carbon Dioxide 25 Anion Gap 9 BUN 12 Creatinine 0.7 Random Glucose 85 Calcium 8.6 Phosphorus 2.8 Magnesium 1.9 PTT Trend 10/14/17 10/15/17 10/15/17 18:30 10:25 17:35 PTT (Actin FS) 51.3 H D 49.0 H 87.8 H D 10/16/17 10/16/17 06:57 15:10 PTT (Actin FS) 85.6 H 76.9 H Active Medications Generic Name Dose Route Start Last Admin Trade Name Freq PRN Reason Stop Dose Admin Aspirin 81 mg 10/14/17 10:00 10/16/17 09:39 Asa - PO 81 mg DAILY ADINA Administration Azathioprine 125 mg 10/14/17 10:00 10/16/17 09:44 Imuran - PO 125 mg DAILY [facility] Administration Benztropine Mesylate 0.5 mg 10/13/17 22:00 10/15/17 21:58 Cogentin - PO 0.5 mg HS ADINA Administration Carvedilol 9.375 mg 10/14/17 10:00 10/16/17 09:40 Coreg - PO 9.375 mg DAILY [facility] Administration Folic Acid 1 mg 10/14/17 10:00 10/16/17 09:41 Folic Acid - PO 1 mg DAILY [facility] Administration Heparin Sodium (Porcine) 1,000 unit 10/14/17 10:45 10/15/17 12:00 Heparin - IVPUSH 1,000 unit PRN PRN Administration Heparin Heparin Sodium (Porcine) 5,000 unit 10/14/17 10:45 Heparin - IVPUSH PRN PRN Heparin Heparin Sodium/Dextrose 25,000 units in 500 mls @ 20 mls/hr 10/14/17 10:45 17:30 Heparin Infusion - IVPB 850 units/hr TITR ADINA 17 mls/hr Administration Protocol 1,000 UNITS/HR Prednisone 5 mg 10/14/17 10:00 10/16/17 09:41 Deltasone - PO 5 mg DAILY [facility] Administration Propranolol HCl 10 mg 10/13/17 22:00 10/16/17 09:44 Inderal - PO 10 mg BID AD[facility] Administration Ranitidine HCl 300 mg 10/14/17 10:00 10/16/17 09:41 Zantac - PO 300 mg DAILY [facility] Administration Warfarin Sodium 7.5 mg 10/15/17 18:00 10/16/17 17:20 Coumadin - PO 7.5 mg DAILY@1800 AD[facility] Administration IMAGING 10/13/17: CXR interval better aeration of the left lung with residual mild atelectatic changes versus infiltrates in the left midlung with minimal left pleural effusion. 5/30/18: ECHO: EF 68.7%, mechanical aortic valve confirmed, prosthetic aortic valve well-seated, severe aortic root dilation. trace to mild MR ASSESSMENT/PLAN: 37 y/o PMH of HTN, Takayasu arteritis (on Prednisone, azathioprine), TAA s/p repair x 3 (last 2013 [facility]), mechanical aortic valve replacement on Coumadin who was recently discharged after being admitted with a supratherapeutic INR, who presented to the ED with fatigue and was found to have a supratherapeutic INR. #Supratherapeutic INR-improved -coumadin dose needs adjustment; second admission for suprather INR -on this admission, initial 6.96. Currently 2.10 -continue hep gtt for a/c until therapeutic 2.5-3.5 as per cardio -bridging with coumadin 7.5mg PO qd -continue to follow INR daily. Once therapeutic, will continue with coumadin 7.5 -Cardio consult- Dr. Mora -telemetry monitoring #New onset fatigue and weakness r/o cardiac cause -continue folic acid 1mg PO qd -ECHO: with severe aortic root dilation, however EF 68.7 -TSH WNL (1.22) -B12 WNL (688) #Anxiety, depression -Continue cogentin 0.5mg PO qHS -Psych consult- Dr. Singh; pt with competency to make own decisions #hx Takayasu arteritis -Continue azathioprine 125 mg PO qd -Prednisone 5mg PO qd -GI ppx ranitidine 300 mg PO qd #Hx aortic valve repair -Continue aspirin 81mg PO qd -coreg 9.375mg qd #HTN- currently uncontrolled -likely 2/2 stress -Continue propanolol 10mg PO BID -will continue to monitor #Hypokalemia- resolved #F/E/N -Encourage PO intake -Continue to follow lytes -Na controlled diet #PPX DVT: on hep gtt/coumadin 7.5mg PO qd GI: ranitidine 300mg PO qd #Dispo Continued tele monitoring hopeful for dc tomorrow if INR continues to improve into goal range 2.5-3.5 Visit type - Emergency Visit Emergency Visit: No - New Patient This patient is new to me today: No - Critical Care Critical Care patient: No
[2017-10-16] MEDS: BENZTROPINE MESYLATE 0.5 MG TABLET (FP) PO SCH (21:25)
[2017-10-17 07:26] LABS: BASO % 0.8 % (0-2.0); EOS % 1.2 % (0-4.5); HEMATOCRIT 39.7 % (35.4-49); HEMOGLOBIN 13.3 GM/dL (11.7-16.9); LYMPH % 22.3 % (8-40); MCH 30.8 pg (25.7-33.7); MCHC 33.6 g/dl (32.0-35.9); MEAN CELL VOLUME 91.6 fl (80-96); MEAN PLT VOLUME 7.4 fl (7.5-11.1); MONO % 10.5 % (3.8-10.2); NEUT % 65.2 % (42.8-82.8); PLATELET COUNT 292 K/MM3 (134-434); RBC 4.33 M/mm3 (4.00-5.60); RDW 15.7 % (11.9-15.9); WHITE BLOOD COUNT 9.3 K/mm3 (4.0-10.0)
[2017-10-17 07:40] LABS: INR 2.27 (0.82-1.09); PROTHROMBIN TIME (PATIENT) 25.7 SEC (9.7-13.0)
[2017-10-17 07:47] LABS: ANION GAP 8 (8-16); BLOOD UREA NITROGEN 13 mg/dL (7-18); CALCIUM 8.3 mg/dL (8.5-10.1); CHLORIDE 103 mmol/L (98-107); CO2 27 mmol/L (21-32); CREATININE 0.8 mg/dL (0.7-1.3); GLUCOSE,RANDOM 100 mg/dL (74-106); SODIUM 138 mmol/L (136-145)
--- NOTE | 2017-10-17 09:24 | PN ---
Physical Exam: SUBJECTIVE: Patient seen and examined by me at bedside. No overnight events noted. Patient offers no complaints today. OBJECTIVE: Vital Signs Period Temp Pulse Resp BP Sys/Tucker Pulse Ox Last 24 Hr 97.9 F-98.5 F 68-81 18-18 112-136/47-74 100 GENERAL: The patient is awake, alert, and fully oriented, in no acute distress. OOB in chair EYES: PERRL, extraocular movements intact, sclera anicteric, conjunctiva clear. CHEST: +vertical hyperpigmented sternotomy scar LUNGS: Breath sounds equal, clear to auscultation bilaterally, no wheezes, no crackles, no accessory muscle use. HEART: 3/6 diastolic murmur in RUSB and LLSB. ABDOMEN: Soft, nontender, nondistended EXTREMITIES: 2+ and equal dp pulses, warm, well-perfused, no edema. PSYCH: anxious mood, normal affect. SKIN: Diffuse Striae throughout the body Laboratory Results - last 24 hr 10/17/17 06:30 10/17/17 06:30 10/17/17 10/17/17 06:30 06:30 PT with INR 25.70 H INR 2.27 H PTT (Actin FS) 70.8 H Active Medications Generic Name Dose Route Start Last Admin Trade Name Freq PRN Reason Stop Dose Admin Aspirin 81 mg 10/14/17 10:00 10/16/17 09:39 Asa - PO 81 mg DAILY [facility] Administration Azathioprine 125 mg 10/14/17 10:00 10/16/17 09:44 Imuran - PO 125 mg DAILY [facility] Administration Benztropine Mesylate 0.5 mg 10/13/17 22:00 10/16/17 21:25 Cogentin - PO 0.5 mg HS AIDNA Administration Carvedilol 9.375 mg 10/14/17 10:00 10/16/17 09:40 Coreg - PO 9.375 mg DAILY [facility] Administration Folic Acid 1 mg 10/14/17 10:00 10/16/17 09:41 Folic Acid - PO 1 mg DAILY [facility] Administration Heparin Sodium (Porcine) 1,000 unit 10/14/17 10:45 10/15/17 12:00 Heparin - IVPUSH 1,000 unit PRN PRN Administration Heparin Heparin Sodium (Porcine) 5,000 unit 10/14/17 10:45 Heparin - IVPUSH PRN PRN Heparin Heparin Sodium/Dextrose 25,000 units in 500 mls @ 20 mls/hr 10/14/17 10:45 17:30 Heparin Infusion - IVPB 850 units/hr TITR ADINA 17 mls/hr Administration Protocol 1,000 UNITS/HR Prednisone 5 mg 10/14/17 10:00 10/16/17 09:41 Deltasone - PO 5 mg DAILY [facility] Administration Propranolol HCl 10 mg 10/13/17 22:00 10/16/17 21:25 Inderal - PO 10 mg BID ADINA Administration Ranitidine HCl 300 mg 10/14/17 10:00 10/16/17 09:41 Zantac - PO 300 mg DAILY [facility] Administration Warfarin Sodium 7.5 mg 10/15/17 18:00 10/16/17 17:20 Coumadin - PO 7.5 mg DAILY@1800 ADINA Administration IMAGING 10/13/17: CXR interval better aeration of the left lung with residual mild atelectatic changes versus infiltrates in the left midlung with minimal left pleural effusion. 10/14/17: ECHO: EF 68.7%, mechanical aortic valve confirmed, prosthetic aortic valve well-seated, severe aortic root dilation. trace to mild MR ASSESSMENT/PLAN: 37 y/o PMH of HTN, Takayasu arteritis (on Prednisone, azathioprine), TAA s/p repair x 3 (last 2013 [facility]), mechanical aortic valve replacement on Coumadin who was recently discharged after being admitted with a supratherapeutic INR, who presented to the ED with fatigue and was found to have a supratherapeutic INR. #Supratherapeutic INR-improved -coumadin dose needs adjustment; second admission for suprather INR -on this admission, initial 6.96. Currently 2.27 -continue hep gtt for a/c until therapeutic 2.5-3.5 as per cardio -bridging with coumadin 7.5mg PO qd -continue to follow INR daily. Once therapeutic, will continue with coumadin 7.5 #New onset fatigue and weakness r/o cardiac cause-Improved -continue folic acid 1mg PO qd #Anxiety, depression -Continue cogentin 0.5mg PO qHS #hx Takayasu arteritis -Continue azathioprine 125 mg PO qd -Prednisone 5mg PO qd -GI ppx ranitidine 300 mg PO qd #Hx aortic valve repair -Continue aspirin 81mg PO qd -coreg 9.375mg qd #HTN- currently controlled -Continue propanolol 10mg PO BID -will continue to monitor #Hypokalemia- resolved #F/E/N -Encourage PO intake -Continue to follow lytes -Na controlled diet #PPX DVT: on hep gtt/coumadin 7.5mg PO qd GI: ranitidine 300mg PO qd #Dispo Continued tele monitoring hopeful for dc tomorrow if INR continues to improve into goal range 2.5-3.5 Visit type - Emergency Visit Emergency Visit: Yes ED Registration Date: 10/13/17 Care time: The patient presented to the Emergency Department on the above date and was hospitalized for further evaluation of their emergent condition. - New Patient This patient is new to me today: Yes Date on this admission: 10/17/17 - Critical Care Critical Care patient: No
[2017-10-17] MEDS: FOLIC ACID 1 MG TABLET (FP) PO SCH (09:25)
[2017-10-17] MEDS: RANITIDINE HCL 150 MG TABLET (FP) PO SCH (09:25)
[2017-10-17] MEDS: CARVEDILOL 3.125 MG TABLET (FP) PO SCH (09:25)
[2017-10-17] MEDS: ASPIRIN 81 MG CHEWABLE TABLETS PO SCH (09:25)
[2017-10-17] MEDS: predniSONE 5 MG TABLET (UD) PO SCH (09:25)
[2017-10-17] MEDS: azaTHIOprine 50 MG TABLET PO SCH (09:26)
[2017-10-17] MEDS: HEPARIN INFUSION - 25,000 UNITS/500 ML INFUS.BAG IVPB SCH ×2 (10:00→23:05)
[2017-10-17 11:28] LABS: MAGNESIUM 1.8 mg/dL (1.8-2.4)
--- NOTE | 2017-10-17 12:21 | PN ---
Teaching Attending Note Name of Resident: Becca Grande ATTENDING PHYSICIAN STATEMENT I saw and evaluated the patient. I reviewed the resident's note and discussed the case with the resident. I agree with the resident's findings and plan as documented. SUBJECTIVE: No fever or chills. no PC . no bleeding OBJECTIVE: NAD , AAOx3 no facial droop. MMM CV: RRR, 3/6 DM at RUSB and LLSB. Skin: striae all over body Ext: no edema or erythema over LE . R for arm with dark bruising, but no edema. ASSESSMENT AND PLAN: 37 y/o man with h/o Takayasu 's, HTN, Thoracic aortic aneurysm repair, mechanical aortic valve replacement, and a recent admission for a prolonged INR who presented due to fatigue and concern for palpitations 1-Coumadin coagulopathy: INR 2.27 today - Cont heparin gtt - give 7.5 of coumadin tonight again - goal INR 2.5-3.5 2- Fatigue: ? due to steroids. No evidence of infection. - B12 and TSH NL. 3- H/o mechanical AVR : - heparin to coumadin as above 4- TAkayasu's : - cont prednisone - cont azathioprine 5- HTN: cont Coreg and propranolol 6- Psych eval. has decision making capacity Dispo : HLOC no ready for dc today
[2017-10-17] MEDS: WARFARIN NA 7.5 MG TABLET (FP) PO SCH (17:43)
[2017-10-17] MEDS: BENZTROPINE MESYLATE 0.5 MG TABLET (FP) PO SCH (21:16)
[2017-10-18] MEDS ORDERED: PT OWN MED DRAWER 7, Y5N ONE (06:58)
[2017-10-18 07:10] LABS: HEMATOCRIT 37.7 % (35.4-49); HEMOGLOBIN 12.8 GM/dL (11.7-16.9); MCH 30.9 pg (25.7-33.7); MCHC 33.9 g/dl (32.0-35.9); MEAN CELL VOLUME 91.4 fl (80-96); MEAN PLT VOLUME 7.6 fl (7.5-11.1); PLATELET COUNT 279 K/MM3 (134-434); RBC 4.13 M/mm3 (4.00-5.60); RDW 16.2 % (11.9-15.9); WHITE BLOOD COUNT 8.6 K/mm3 (4.0-10.0)
[2017-10-18 07:15] LABS: INR 2.76 (0.82-1.09); PROTHROMBIN TIME (PATIENT) 31.2 SEC (9.7-13.0)
[2017-10-18 08:47] VITALS: BP 131/57; PULSE 87; TEMP 97.7
[2017-10-18] MEDS: FOLIC ACID 1 MG TABLET (FP) PO SCH (09:26)
[2017-10-18] MEDS: predniSONE 5 MG TABLET (UD) PO SCH (09:26)
[2017-10-18] MEDS: CARVEDILOL 3.125 MG TABLET (FP) PO SCH (09:26)
[2017-10-18] MEDS: RANITIDINE HCL 150 MG TABLET (FP) PO SCH (09:27)
[2017-10-18] MEDS: azaTHIOprine 50 MG TABLET PO SCH (09:27)
[2017-10-18] MEDS: ASPIRIN 81 MG CHEWABLE TABLETS PO SCH (09:28)
--- NOTE | 2017-10-18 18:32 | PN ---
Progress Note (short form) - Note Progress Note: Subjective:no fever or chills, no abd pain , no bleeding Objective: Vital Signs: Last Vital Signs Temp Pulse Resp BP Pulse Ox 97.7 F 87 18 131/57 97 10/18/17 08:46 10/18/17 08:46 10/18/17 09:00 10/18/17 08:46 10/18/17 09:00 Laboratory Results - last 24 hr 10/18/17 10/18/17 10/18/17 06:30 06:30 06:30 WBC 8.6 RBC 4.13 Hgb 12.8 Hct 37.7 MCV 91.4 MCH 30.9 MCHC 33.9 RDW 16.2 H Plt Count 279 MPV 7.6 PT with INR 31.20 H INR 2.76 H PTT (Actin FS) 66.3 H Physical Exam: NAD , AAOx3 no facial droop. MMM CV: RRR, 3/6 DM at RUSB and LLSB. Skin: striae all over body Ext: no edema or erythema over LE . R for arm with dark bruising, but no edema. ASSESSMENT AND PLAN: 37 y/o man with h/o Takayasu 's, HTN, Thoracic aortic aneurysm repair, mechanical aortic valve replacement, and a recent admission for a prolonged INR who presented due to fatigue and concern for palpitations 1-Coumadin coagulopathy: INR 2.7 today - dc heparin gtt, dc home on 7.5 of coumadin . - given prescription for INR on 6, and 68 . - will need frequent INR check initially - goal INR 2.5-3.5 2- Fatigue: ? due to steroids. No evidence of infection. - B12 and TSH NL. 3- H/o mechanical AVR : -coumadin 4- TAkayasu's : - cont prednisone - cont azathioprine 5- HTN: cont Coreg and propranolol 6- Psych eval. has decision making capacity dc home condition improved f/u with PCP /card time spent 35 min Visit type - Emergency Visit Emergency Visit: Yes ED Registration Date: 10/13/17 Care time: The patient presented to the Emergency Department on the above date and was hospitalized for further evaluation of their emergent condition. - New Patient This patient is new to me today: No - Critical Care Critical Care patient: No - Discharge Referral Referred to [facility] Med P.C.: No
--- NOTE | 2017-10-19 21:22 | DS ---
Physical Exam: SUBJECTIVE: Patient seen and examined by team on day of discharge. Manager Home not present. OBJECTIVE: Vital Signs Temperature 97.7 F 10/18/17 08:46 Pulse Rate 87 10/18/17 08:46 Respiratory Rate 18 10/18/17 09:00 Blood Pressure 131/57 10/18/17 08:46 O2 Sat by Pulse Oximetry (%) 97 10/18/17 09:00 PHYSICAL EXAM as per alternate notes; see above LABS INR 10/13/17 10/14/17 10/15/17 14:30 07:58 10:25 INR 6.96 H* D 1.41 H D 1.46 H 10/16/17 10/17/17 10/18/17 06:57 06:30 06:30 INR 2.10 H D 2.27 H 2.76 H PTT 10/14/17 10/15/17 10/15/17 18:30 10:25 17:35 PTT (Actin FS) 51.3 H D 49.0 H 87.8 H D 10/16/17 10/16/17 10/17/17 06:57 15:10 06:30 PTT (Actin FS) 85.6 H 76.9 H 70.8 H 10/18/17 06:30 PTT (Actin FS) 66.3 H Additional testing 10/13/17 10/13/17 10/14/17 14:30 15:15 07:58 Troponin I < 0.02 B-Natriuretic Peptide 82.52 Vitamin B12 688 TSH 1.22 24hr 10/17/17 10/18/17 06:30 06:30 WBC 8.6 Hgb 12.8 Hct 37.7 Plt Count 279 Sodium 138 Potassium 4.0 Chloride 103 Carbon Dioxide 27 BUN 13 Creatinine 0.8 IMAGING 10/13/17: CXR interval better aeration of the left lung with residual mild atelectatic changes versus infiltrates in the left midlung with minimal left pleural effusion. 10/14/17: ECHO: EF 68.7%, mechanical aortic valve confirmed, prosthetic aortic valve well-seated, severe aortic root dilation. trace to mild MR HOSPITAL COURSE: Date of Admission:10/13/17 Date of Discharge: 10/19/17 Admit diagnosis: supratherapeutic INR 37 y/o M with PMH of HTN, Takayasu arteritis (on Prednisone, azathioprine), TAA s/p repair x 3 (last 2013 [facility]), mechanical aortic valve replacement on Coumadin , who was recently discharged after admission with a supratherapeutic INR, who presented to the hospital with fatigue. Pt admitted for supratherapeutic INR and further eval of fatigue. While pt was hospitalized, his coumadin was initially held and his INR was followed closely, as it was initially 6.96. Once subtherapeutic, pt was started on hep gtt and bridged with coumadin 7.5mg PO qd. On day of discharge, he became therapeutic with INR 2.76 and hep gtt was d/ c. Sent home on coumadin 7.5mg PO qd, with need for continued cardio follow-up with Dr. Mora. Concerning pt's fatigue, cardiac causes were r/o via ECHO, which revealed EF 68.7, severe aortic root dilation. His TSH and B12 were also found to be WNL, and he was cleared by psychiatry to r/o depressive etiology. Fatigue was likely 2/2 chronic steroid use stemming from Takayasu arteritis. Pt will complete f/u with PCP, cardiology on discharge. Minutes to complete discharge: 44 Discharge Summary Reason For Visit: FATIGUE; INR Condition: Improved - Instructions Diet, Activity, Other Instructions: - you were admitted for fatigue , but no etiology was found. it might be due to your steroids. - Your INR was elevated and your coumadin dose was adjusted. - please take 7.5 mg of coumadin instead of 10 mg every evening - you need INR on friday 10/20 . 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 - report any bleed to your doctor - continue the rest of your home medications as per your routine - Good luck Referrals: Vickie Ozuna MD [Primary Care Provider] - 1 Week Disposition: HOME - Home Medications Comprehensive Discharge Medication List: Ambulatory Orders Calcium Carbonate/Vitamin D3 [Calcium 600-Vit D3 200 Tablet] 1 each PO HS Carvedilol [Coreg] 6.25 mg PO DAILY 07/05/14 Folic Acid - 1 mg PO DAILY 07/05/14 Aspirin [ASA -] 81 mg PO DAILY 12/26/14 Famotidine 40 mg PO DAILY 12/26/14 Carvedilol [Coreg -] 3.125 mg PO DAILY 01/20/17 predniSONE [Deltasone -] 5 mg PO DAILY 01/20/17 Benztropine Mesylate 0.5 mg PO HS 04/06/17 Propranolol HCl 10 mg PO BID 04/06/17 Azathioprine [Imuran -] 125 mg PO DAILY tablet 04/12/17 Miscellaneous Drug Not In Syst [Outpatient Lab Test] 1 each ASDIR #1 [facility] [place] 08/02 Miscellaneous Medical Supply [Outpatient Order] 1 each ASDIR #1 [facility] [place] Warfarin Sodium [Coumadin] 7.5 mg PO HS #60 tablet 10/18/17 This patient is new to me today: No Emergency Visit: No Critical Care patient: No - Discharge Referral Referred to [facility] Med P.C.: No
== END 2017-10-18 13:19 | disposition home or self-care (01) | DRG 661 ==
LOC: JER 13:19 → JERBED 17:25 → J4W 10-14 04:01
PROVIDERS: ADMIT Internal Medicine; ATTEND Internal Medicine
DX: D68.9 Coagulation defect, unspecified (principal); Z95.2 Presence of prosthetic heart valve; E87.6 Hypokalemia; F41.8 Other specified anxiety disorders; J98.11 Atelectasis; I10 Essential (primary) hypertension; R53.83 Other fatigue; Z86.59 Personal history of other mental and behavioral disorders; F20.9 Schizophrenia, unspecified; Z79.01 Long term (current) use of anticoagulants; D64.9 Anemia, unspecified; M31.4 Aortic arch syndrome [Takayasu]
CPT/HCPCS: 36415; 71045-TC-FY; 80048; 80053; 82550; 82607; 83735; 83880; 84100; 84443; 84484; 85025; 85027; 85610; 85730; 86850; 86900; 86901; 93005; 93010; 93306-TC; 97116-GP; 97161-GP; 99285-25; J1644

== ENCOUNTER 2017-12-06 10:44 | Emergency (ER) | payer OTHER ==
[2017-12-06 11:15] VITALS: BP 133/67; PULSE 88; TEMP 98.2; BMI 23.7
--- NOTE | 2017-12-06 11:28 | PDOC ---
Rapid Medical Evaluation Chief Complaint: Pain Time Seen by Provider: 12/06/17 11:06 Medical Evaluation: Allergies Allergy/AdvReac Type Severity Reaction Status Date / Time lactose Allergy Verified 12/06/17 10:54 No Known Drug Allergies Allergy Verified 12/06/17 10:54 orange Allergy Mild Uncoded 12/06/17 10:54 Vital Signs Temp Pulse Resp BP Pulse Ox 98.2 F 88 16 133/67 99 12/06/17 10:56 12/06/17 10:56 12/06/17 10:56 12/06/17 10:56 12/06/17 10:56 12/06/17 11:20 Patient brought in by ambulance with complain of right knee pain upon with this morning. When went anticipation patient refused to be examined and reported [facility] x-ray to be done. Patient keeps saying he is highly educated with college degree and knows exactly what needs to be done for him and needed an x- ray and doesn't need to be examined . Patient started getting verbally abusive saying he questions my intellegence if i feel he needs an exam rather than x- rays. Patient at this point refuse any more care and request to be seen by another provider as i am not doing what he is telling me and questions.Patient request for his PCP to be called to be instructed on how to treat him. pt deferred to another provider due to now refusing care from me Discharge Disposition - Diagnosis Pain, joint, knee, right - Referrals Referrals: Vickie Ozuna MD [Primary Care Provider] - - Patient Instructions - Post Discharge Activity
[2017-12-06] MEDS ORDERED: ACETAMINOPHEN 325 MG TABLET (FP) PO ONE (11:49)
--- NOTE | 2017-12-06 11:50 | PDOC ---
History of Present Illness - General Chief Complaint: Pain Stated Complaint: RT KNEE PAIN Time Seen by Provider: 12/06/17 11:06 History Source: Patient Exam Limitations: No Limitations - History of Present Illness Initial Comments: 12/06/17 11:51 37y M hx of takayasu arteritis, AAA, AO root replacement, aortic valve repair on coumadin presents with complaint of atraumatic R knee pain. Pt states the pain started this morning, denies any trauma/falls, notes he typically is ambulatatory with a cane since he was young. Pt denies any trauma/falls, injruies, fever/chills. Hasnt taken any medications for his pain. Past History - Past Medical History Allergies/Adverse Reactions: Allergies Allergy/AdvReac Type Severity Reaction Status Date / Time lactose Allergy Verified 12/06/17 10:54 No Known Drug Allergies Allergy Verified 12/06/17 10:54 orange Allergy Mild Uncoded 12/06/17 10:54 Home Medications: Ambulatory Orders Calcium Carbonate/Vitamin D3 [Calcium 600-Vit D3 200 Tablet] 1 each PO HS Carvedilol [Coreg] 6.25 mg PO DAILY 07/05/14 Folic Acid - 1 mg PO DAILY 07/05/14 Aspirin [ASA -] 81 mg PO DAILY 12/26/14 Famotidine 40 mg PO DAILY 12/26/14 Carvedilol [Coreg -] 3.125 mg PO DAILY 01/20/17 predniSONE [Deltasone -] 5 mg PO DAILY 01/20/17 Benztropine Mesylate 0.5 mg PO HS 04/06/17 Propranolol HCl 10 mg PO BID 04/06/17 Azathioprine [Imuran -] 125 mg PO DAILY tablet 04/12/17 Warfarin Sodium [Coumadin] 10 mg PO HS 12/06/17 Anemia: No Asthma: No Cancer: No Cardiac Disorders: Yes (TAA) CVA: No COPD: No CHF: No Dementia: No Diabetes: Yes GI Disorders: No Disorders: No HTN: Yes Hypercholesterolemia: No Liver Disease: No Psychiatric Problems: Yes (depression) Seizures: No Thyroid Disease: No - Surgical History Abdominal Surgery: Yes (ABDOMINAL HERNIA) Appendectomy: No Cardiac Surgery: Yes (AORTIC ROOT REPLACEMENT;AVR,,DESENDING TAA REPAIR,) Cholecystectomy: No Lung Surgery: No Neurologic Surgery: No Orthopedic Surgery: No - Immunization History Immunization Up to Date: Yes - Suicide/Smoking/Psychosocial Hx Smoking Status: No Smoking History: Never smoked Have you smoked in the past 12 months: No Number of Cigarettes Smoked Daily: 0 Information on smoking cessation initiated: No Hx Alcohol Use: No Drug/Substance Use Hx: No Substance Use Type: None Hx Substance Use Treatment: No Review of Systems - Review of Systems Able to Perform ROS?: Yes Comments:: 12/06/17 11:55 Constitutional - no reported Fever, Chills, Cardiac: no reported chest pain, Abd/GI: no reported abd pain, nausea, vomiting, : no reported dysuria, frequency, discharge Musculskelatal - +R knee pain no reported back pain, joint swelling skin - no reported bruising, neurological: no reported numbness, weakness, tingling, *Physical Exam - Vital Signs Last Vital Signs Temp Pulse Resp BP Pulse Ox 98.2 F 88 16 133/67 99 12/06/17 10:56 12/06/17 10:56 12/06/17 10:56 12/06/17 10:56 12/06/17 10:56 - Physical Exam Comments: 12/06/17 11:56 GENERAL: The patient is awake, alert, and fully oriented, Nontoxic - in no acute distress. EXTREMITIES: mild diffuse tenderness to anterior R knee, +pain on rom, no edema , warmth, induration/fluctuance, no focal bony tenderness ED Treatment Course - RADIOLOGY Radiology Studies Ordered: Category Date Time Status KNEE 3 POS-RIGHT [RAD] Stat Radiology 12/06/17 11:49 Ordered Medical Decision Making - Medical Decision Making 12/06/17 11:57 r/o fx or acute injury with xray tylenol for pain 12/06/17 14:31 xray neagive for fracture, +nonspecific small to oderate sied suprapatellar effusion, modeate osteoarthritic changes will dc the pt with pmd fu return precuations were disucsed supportive care at home I discussed the physical exam findings, ancillary test results and final diagnoses with the patient. I answered all of the patient's questions. The patient was satisfied with the care received and felt comfortable with the discharge plan and treatment plan. The patient will call their primary care physician within 24 hours to arrange follow-up and will return to the Emergency Department with any new, persistent or worsening symptoms. *DC/Admit/Observation/Transfer Diagnosis at time of Disposition: Pain, joint, knee, right - Discharge Dispostion Disposition: HOME Condition at time of disposition: Improved Decision to Admit order: No - Referrals Referrals: Vickie Ozuna MD [Primary Care Provider] - - Patient Instructions Printed Discharge Instructions: DI for Knee Pain Additional Instructions: No fracture noted on your xray follow up with dr. ozuna for further evaluation of your knee pain. if it persists, see your orthopedic doctor. take tylenol as need for pain rest Print Language: ROMANSH - Post Discharge Activity
[2017-12-06] MEDS ORDERED: ACETAMINOPHEN 325 MG TABLET (FP) ONE (13:06)
== END 2017-12-06 15:00 | disposition home or self-care (01) ==
LOC: JERFT 10:44 → JER 10:44
DX: M25.461 Effusion, right knee (principal); M17.11 Unilateral primary osteoarthritis, right knee; M31.4 Aortic arch syndrome [Takayasu]; Z79.01 Long term (current) use of anticoagulants; Z95.2 Presence of prosthetic heart valve; I10 Essential (primary) hypertension; Z86.79 Personal history of other diseases of the circulatory system
CPT/HCPCS: 73562-TC-RT-FY; 99283-25

== ENCOUNTER 2019-08-24 12:46 | Emergency (ER) | payer OTHER ==
[2019-08-24 13:18] VITALS: BP 140/70; PULSE 77; TEMP 98.8; BMI 24.5
[2019-08-24 14:32] LABS: BASO % 0.8 % (0-2.0); EOS % 0.3 % (0-4.5); HEMATOCRIT 47.3 % (35.4-49); HEMOGLOBIN 15.5 GM/dL (11.7-16.9); LYMPH % 10.3 % (8-40); MCH 30.2 pg (25.7-33.7); MCHC 32.7 g/dl (32.0-35.9); MEAN CELL VOLUME 92.4 fl (80-96); MEAN PLT VOLUME 8.2 fl (7.5-11.1); MONO % 4.5 % (3.8-10.2); NEUT % 84.1 % (42.8-82.8); PLATELET COUNT 259 K/MM3 (134-434); RBC 5.12 M/mm3 (4.00-5.60); RDW 15.8 % (11.9-15.9); WHITE BLOOD COUNT 9.5 K/mm3 (4.0-10.0)
[2019-08-24 14:40] LABS: INR 3.71 (0.83-1.09); PROTHROMBIN TIME (PATIENT) 44.4 SEC (9.7-13.0)
[2019-08-24 14:58] LABS: ALBUMIN 3.9 g/dl (3.4-5.0); BILIRUBIN,TOTAL 1.1 mg/dL (0.2-1); BLOOD UREA NITROGEN 7.8 mg/dL (7-18); CALCIUM 8.9 mg/dL (8.5-10.1); CREATININE 0.8 mg/dL (0.55-1.3); POTASSIUM 4.4 mmol/L (3.5-5.1)
== END 2019-08-24 15:03 | disposition home or self-care (01) ==
LOC: JER 12:46
DX: R04.0 Epistaxis (principal)
CPT/HCPCS: 36415; 80053; 85025; 85610; 99283-25

== ENCOUNTER 2020-12-20 21:33 | Inpatient (IN) | payer OTHER ==
[2020-12-21 00:25] LABS: EPI CELLS 5 /uL (0-25.1); HYALINE CASTS 4 /uL (0-3.1); URINE APPEARANCE TURBID; URINE BACTERIA 1 /uL (0-1359); URINE BILIRUBIN 1+ (NEGATIVE); URINE COLOR ORANGE; URINE GLUCOSE (UA) NEGATIVE (NEGATIVE); URINE KETONE NEGATIVE (NEGATIVE); URINE LEUK ESTERASE 1+ (NEGATIVE); URINE NITRITE NEGATIVE (NEGATIVE); URINE PROTEIN 2+ (NEGATIVE); URINE RBC 19239 /uL (0-23.9); URINE WBC 72 /uL (0-25.8)
[2020-12-21 01:00] LABS: CHLORIDE 106 mmol/L (98-107); SODIUM 137 mmol/L (136-145)
[2020-12-21 01:02] LABS: CALCIUM 7.8 mg/dL (8.5-10.1)
[2020-12-21 01:03] LABS: ALBUMIN 3.3 g/dl (3.4-5.0); BLOOD UREA NITROGEN 10.5 mg/dL (7-18); CO2 26 mmol/L (21-32); GLUCOSE,RANDOM 93 mg/dL (74-106)
[2020-12-21 01:06] LABS: CREATININE 0.9 mg/dL (0.55-1.3); SGOT/AST 85 U/L (15-37)
[2020-12-21 01:07] LABS: BILIRUBIN,TOTAL 0.5 mg/dL (0.2-1); TOT PROT 7.7 g/dl (6.4-8.2)
[2020-12-21 01:09] LABS: ALK PHOS 90 U/L (45-117)
[2020-12-21 01:17] LABS: ANION GAP 4 MMOL/L (8-16); SGPT/ALT 39 U/L (13-61)
[2020-12-21 01:29] LABS: BASO % 0.3 % (0-2.0); EOS % 0.6 % (0-4.5); HEMATOCRIT 43.2 % (35.4-49); HEMOGLOBIN 14.3 GM/dL (11.7-16.9); LYMPH % 20.1 % (8-40); MCH 29.7 pg (25.7-33.7); MCHC 33.1 g/dl (32.0-35.9); MEAN CELL VOLUME 89.5 fl (80-96); MEAN PLT VOLUME 7.8 fl (7.5-11.1); MONO % 9.1 % (3.8-10.2); NEUT % 69.9 % (42.8-82.8); PLATELET COUNT 245 10^3/uL (134-434); RBC 4.83 M/mm3 (4.00-5.60); RDW 16.5 % (11.9-15.9); WHITE BLOOD COUNT 12.2 K/mm3 (4.0-10.0)
[2020-12-21 01:49] LABS: PROTHROMBIN TIME (PATIENT) 90.4 SEC (9.7-13.0)
[2020-12-21 01:52] LABS: ACTIVATED PTT 79.6 SECONDS (25.2-36.5)
[2020-12-21 01:58] LABS: INR 7.8 (0.83-1.09)
[2020-12-21 02:14] LABS: ALBUMIN 3.8 g/dl (3.4-5.0); BILIRUBIN,TOTAL 0.6 mg/dL (0.2-1); BLOOD UREA NITROGEN 10.9 mg/dL (7-18); CALCIUM 8.4 mg/dL (8.5-10.1); CREATININE 0.9 mg/dL (0.55-1.3); TOT PROT 8.2 g/dl (6.4-8.2)
[2020-12-21] MEDS ORDERED: PHYTONADIONE 10 MG/1 ML AMP IVPB ONE (03:56)
[2020-12-21] MEDS ORDERED: PHYTONADIONE 10 MG/1 ML AMP ONE (04:02)
[2020-12-21 07:19] VITALS: BMI 33.5
[2020-12-21] MEDS: FOLIC ACID 1 MG TABLET (FP) PO SCH (18:06)
[2020-12-21] MEDS: predniSONE 5 MG TABLET (UD) PO SCH (18:06)
[2020-12-21] MEDS: SODIUM CHLORIDE 1,000 ML IV SCH (18:06)
[2020-12-21] MEDS: CALCIUM 500MG/VIT-D 200 UNITS COMBO TABLET (FP) PO SCH (21:33)
[2020-12-21] MEDS: CARVEDILOL 6.25 MG TABLET (FP) PO SCH (21:33)
[2020-12-22 09:11] LABS: INR 2.95 (0.83-1.09); PROTHROMBIN TIME (PATIENT) 35.2 SEC (9.7-13.0)
[2020-12-22 09:14] LABS: ACTIVATED PTT 49.8 SECONDS (25.2-36.5)
[2020-12-22 09:15] LABS: HEMATOCRIT 38.2 % (35.4-49); HEMOGLOBIN 12.9 GM/dL (11.7-16.9); MCH 30.4 pg (25.7-33.7); MCHC 33.8 g/dl (32.0-35.9); PLATELET COUNT 220 10^3/uL (134-434); RBC 4.25 M/mm3 (4.00-5.60); RDW 16.2 % (11.9-15.9); WHITE BLOOD COUNT 8.7 K/mm3 (4.0-10.0)
[2020-12-22] MEDS: predniSONE 5 MG TABLET (UD) PO SCH (09:29)
[2020-12-22] MEDS: CALCIUM 500MG/VIT-D 200 UNITS COMBO TABLET (FP) PO SCH ×2 (09:29→21:15)
[2020-12-22] MEDS: CARVEDILOL 6.25 MG TABLET (FP) PO SCH ×2 (09:29→21:15)
[2020-12-22] MEDS: FAMOTIDINE 20 MG TABLET PO SCH (09:29)
[2020-12-22] MEDS: FOLIC ACID 1 MG TABLET (FP) PO SCH (09:29)
[2020-12-22 09:31] LABS: ALBUMIN 3.2 g/dl (3.4-5.0)
[2020-12-22 09:32] LABS: MAGNESIUM 1.9 mg/dL (1.8-2.4)
[2020-12-22 09:35] LABS: CREATININE 0.7 mg/dL (0.55-1.3); PHOSPHOROUS 3.1 mg/dL (2.5-4.9)
[2020-12-22 09:36] LABS: BILIRUBIN,TOTAL 0.7 mg/dL (0.2-1); TOT PROT 6.6 g/dl (6.4-8.2)
[2020-12-22] MEDS: SODIUM CHLORIDE 1,000 ML IV SCH (15:18)
[2020-12-22 17:05] LABS: EPI CELLS 1 /uL (0-25.1); HYALINE CASTS 0 /uL (0-3.1); PH,URINE 7.5 (5.0-8.0); URINE APPEARANCE CLEAR; URINE BACTERIA 7 /uL (0-1359); URINE BILIRUBIN NEGATIVE (NEGATIVE); URINE COLOR YELLOW; URINE GLUCOSE (UA) NEGATIVE (NEGATIVE); URINE KETONE NEGATIVE (NEGATIVE); URINE LEUK ESTERASE NEGATIVE (NEGATIVE); URINE NITRITE NEGATIVE (NEGATIVE); URINE PROTEIN NEGATIVE (NEGATIVE); URINE RBC 108 /uL (0-23.9); URINE UROBILINOGEN 0.2 mg/dL (0.2-1.0); URINE WBC 3 /uL (0-25.8)
[2020-12-22] MEDS ORDERED: WARFARIN NA 3 MG TABLET PO ONE (18:00)
[2020-12-23 07:02] LABS: BASO % 0.5 % (0-2.0); EOS % 1.2 % (0-4.5); HEMATOCRIT 36.2 % (35.4-49); HEMOGLOBIN 12.4 GM/dL (11.7-16.9); LYMPH % 25.8 % (8-40); MCH 30.8 pg (25.7-33.7); MCHC 34.4 g/dl (32.0-35.9); MEAN CELL VOLUME 89.5 fl (80-96); MEAN PLT VOLUME 7.9 fl (7.5-11.1); MONO % 9.7 % (3.8-10.2); NEUT % 62.8 % (42.8-82.8); PLATELET COUNT 199 10^3/uL (134-434); RBC 4.04 M/mm3 (4.00-5.60); RDW 16.5 % (11.9-15.9); WHITE BLOOD COUNT 10.3 K/mm3 (4.0-10.0)
[2020-12-23 07:04] LABS: INR 2.2 (0.83-1.09); PROTHROMBIN TIME (PATIENT) 26.5 SEC (9.7-13.0)
[2020-12-23 07:23] LABS: ALBUMIN 3.1 g/dl (3.4-5.0); BLOOD UREA NITROGEN 15.3 mg/dL (7-18)
[2020-12-23 07:24] LABS: BILIRUBIN,TOTAL 0.6 mg/dL (0.2-1); TOT PROT 6.4 g/dl (6.4-8.2)
[2020-12-23 07:27] LABS: CREATININE 0.8 mg/dL (0.55-1.3)
[2020-12-23] MEDS: CALCIUM 500MG/VIT-D 200 UNITS COMBO TABLET (FP) PO SCH ×2 (09:46→21:31)
[2020-12-23] MEDS: FOLIC ACID 1 MG TABLET (FP) PO SCH (09:46)
[2020-12-23] MEDS: CARVEDILOL 6.25 MG TABLET (FP) PO SCH ×2 (09:46→21:31)
[2020-12-23] MEDS: predniSONE 5 MG TABLET (UD) PO SCH (09:47)
[2020-12-23] MEDS: FAMOTIDINE 20 MG TABLET PO SCH (09:47)
[2020-12-23] MEDS: SODIUM CHLORIDE 1,000 ML IV SCH ×2 (13:38→18:01)
[2020-12-23] MEDS ORDERED: WARFARIN NA 7.5 MG TABLET PO ONE (18:00)
[2020-12-24] MEDS: SODIUM CHLORIDE 1,000 ML IV SCH (01:51)
[2020-12-24 10:21] VITALS: BP 143/62; PULSE 70; TEMP 98.1
[2020-12-24] MEDS: FOLIC ACID 1 MG TABLET (FP) PO SCH (10:21)
[2020-12-24] MEDS: CALCIUM 500MG/VIT-D 200 UNITS COMBO TABLET (FP) PO SCH (10:21)
[2020-12-24] MEDS: predniSONE 5 MG TABLET (UD) PO SCH (10:21)
[2020-12-24] MEDS: FAMOTIDINE 20 MG TABLET PO SCH (10:21)
[2020-12-24] MEDS: CARVEDILOL 6.25 MG TABLET (FP) PO SCH (10:21)
[2020-12-24 10:30] LABS: INR 2.35 (0.83-1.09); PROTHROMBIN TIME (PATIENT) 28.2 SEC (9.7-13.0)
[2020-12-24 10:37] LABS: BASO % 0.3 % (0-2.0); EOS % 1.1 % (0-4.5); HEMATOCRIT 37.2 % (35.4-49); HEMOGLOBIN 12.6 GM/dL (11.7-16.9); LYMPH % 21.7 % (8-40); MCH 30.8 pg (25.7-33.7); MCHC 33.9 g/dl (32.0-35.9); MEAN PLT VOLUME 8.2 fl (7.5-11.1); MONO % 7.8 % (3.8-10.2); NEUT % 69.1 % (42.8-82.8); PLATELET COUNT 205 10^3/uL (134-434); RBC 4.09 M/mm3 (4.00-5.60); RDW 16.1 % (11.9-15.9); WHITE BLOOD COUNT 10.4 K/mm3 (4.0-10.0)
[2020-12-24 10:57] LABS: CALCIUM 8.1 mg/dL (8.5-10.1)
[2020-12-24 10:59] LABS: ALBUMIN 3.2 g/dl (3.4-5.0); BLOOD UREA NITROGEN 12.6 mg/dL (7-18); MAGNESIUM 1.8 mg/dL (1.8-2.4)
[2020-12-24 11:00] LABS: BILIRUBIN,TOTAL 0.6 mg/dL (0.2-1)
[2020-12-24 11:01] LABS: CREATININE 0.8 mg/dL (0.55-1.3)
[2020-12-24 11:03] LABS: TOT PROT 6.6 g/dl (6.4-8.2)
== END 2020-12-24 13:26 | disposition home or self-care (01) | DRG 661 ==
LOC: JER 21:33 → JERBED 12-21 02:36 → J4S 12-21 06:22
PROVIDERS: ADMIT Internal Medicine; ATTEND Nurse Practitioner Family
PROC: 30233L1 Transfusion of Nonautologous Fresh Plasma into Peripheral Vein, Percutaneous Approach (ICD-10-PCS; principal; 2020-12-21)
PROC: 30233K1 Transfusion of Nonautologous Frozen Plasma into Peripheral Vein, Percutaneous Approach (ICD-10-PCS; 2020-12-21)
DX: D68.32 Hemorrhagic disorder due to extrinsic circulating anticoagulants (principal); I77.6 Arteritis, unspecified; F32.9 Major depressive disorder, single episode, unspecified; E78.5 Hyperlipidemia, unspecified; E11.9 Type 2 diabetes mellitus without complications; T45.515A Adverse effect of anticoagulants, initial encounter; R31.0 Gross hematuria; F20.9 Schizophrenia, unspecified; I10 Essential (primary) hypertension; E66.9 Obesity, unspecified; Z68.33 Body mass index [BMI] 33.0-33.9, adult
CPT/HCPCS: 36415; 36430; 76775-TC; 76856-TC; 80053; 81003; 82272; 83735; 84100; 85025; 85027; 85610; 85730; 86850; 86900; 86901; 86922; 87086; 93005; 93010; 97116-GP; 97161-GP; 99285-25; C9803; P9017; U0003; U0005

== ENCOUNTER 2021-03-29 14:29 | Emergency (ER) | payer OTHER ==
[2021-03-29 14:41] VITALS: TEMP 98.1; BMI 34.0
[2021-03-29 18:29] VITALS: BP 136/63; PULSE 77
== END 2021-03-29 22:22 | disposition home or self-care (01) ==
LOC: JER 14:29
DX: T83.091A Other mechanical complication of indwelling urethral catheter, initial encounter (principal)
CPT/HCPCS: 99282-25

== ENCOUNTER 2021-06-16 00:27 | Inpatient (IN) | payer OTHER ==
[2021-06-16 01:38] LABS: BASO % 0.9 % (0-2.0); EOS % 0.5 % (0-4.5); HEMATOCRIT 34.2 % (35.4-49); LYMPH % 15.6 % (8-40); MCH 26.5 pg (25.7-33.7); MCHC 32.3 g/dl (32.0-35.9); MEAN CELL VOLUME 81.9 fl (80-96); MEAN PLT VOLUME 7.6 fl (7.5-11.1); MONO % 6.7 % (3.8-10.2); NEUT % 76.3 % (42.8-82.8); PLATELET COUNT 328 10^3/uL (134-434); RBC 4.17 M/mm3 (4.00-5.60); RDW 16.6 % (11.9-15.9); WHITE BLOOD COUNT 11.3 K/mm3 (4.0-10.0)
[2021-06-16 02:19] LABS: PROTHROMBIN TIME (PATIENT) 145.3 SEC (9.7-13.0)
[2021-06-16 02:21] LABS: INR 12.32 (0.83-1.09)
[2021-06-16] MEDS ORDERED: PHYTONADIONE 5 MG TABLET PO ONE (02:43)
[2021-06-16 02:45] LABS: ALBUMIN 3.2 g/dl (3.4-5.0); BILIRUBIN,TOTAL 0.5 mg/dL (0.2-1); CREATININE 0.8 mg/dL (0.55-1.3); TOT PROT 6.8 g/dl (6.4-8.2)
[2021-06-16] MEDS ORDERED: PHYTONADIONE 5 MG TABLET ONE (02:57)
[2021-06-16 03:32] LABS: PH,URINE 6.5 (5.0-8.0); URINE APPEARANCE CLEAR; URINE BILIRUBIN NEGATIVE (NEGATIVE); URINE COLOR YELLOW; URINE GLUCOSE (UA) NEGATIVE (NEGATIVE); URINE KETONE NEGATIVE (NEGATIVE); URINE LEUK ESTERASE NEGATIVE (NEGATIVE); URINE NITRITE NEGATIVE (NEGATIVE); URINE PROTEIN NEGATIVE (NEGATIVE)
[2021-06-16 03:40] LABS: INR 11.56 (0.83-1.09)
[2021-06-16 03:42] LABS: PROTHROMBIN TIME (PATIENT) 136.3 SEC (9.7-13.0)
[2021-06-16] MEDS ORDERED: ACETAMINOPHEN 325 MG TABLET (FP) PO PRN (05:42)
[2021-06-16 06:46] LABS: BASO % 0.6 % (0-2.0); EOS % 0.8 % (0-4.5); HEMATOCRIT 35.3 % (35.4-49); HEMOGLOBIN 11.2 GM/dL (11.7-16.9); LYMPH % 19.6 % (8-40); MCH 26.1 pg (25.7-33.7); MCHC 31.7 g/dl (32.0-35.9); MEAN CELL VOLUME 82.3 fl (80-96); MEAN PLT VOLUME 7.8 fl (7.5-11.1); PLATELET COUNT 322 10^3/uL (134-434); RBC 4.29 M/mm3 (4.00-5.60); RDW 16.9 % (11.9-15.9); WHITE BLOOD COUNT 11.8 K/mm3 (4.0-10.0)
[2021-06-16 07:04] LABS: CALCIUM 8.5 mg/dL (8.5-10.1)
[2021-06-16 07:05] LABS: ALBUMIN 3.2 g/dl (3.4-5.0)
[2021-06-16 07:08] LABS: CREATININE 0.7 mg/dL (0.55-1.3)
[2021-06-16 07:09] LABS: BILIRUBIN,TOTAL 0.4 mg/dL (0.2-1); TOT PROT 6.8 g/dl (6.4-8.2)
[2021-06-16 07:15] LABS: PROTHROMBIN TIME (PATIENT) 136.8 SEC (9.7-13.0)
[2021-06-16 07:17] LABS: INR 11.6 (0.83-1.09)
[2021-06-16] MEDS ORDERED: FOLIC ACID 1 MG TABLET (FP) ONE (09:23)
[2021-06-16] MEDS ORDERED: FAMOTIDINE 20 MG TABLET ONE (09:23)
[2021-06-16] MEDS: FOLIC ACID 1 MG TABLET (FP) PO SCH (09:40)
[2021-06-16] MEDS: LOSARTAN POTASSIUM 25 MG TABLET PO SCH (09:40)
[2021-06-16] MEDS: CARVEDILOL 6.25 MG TABLET (FP) PO SCH ×2 (09:40→21:34)
[2021-06-16] MEDS: CALCIUM 500MG/VIT-D 200 UNITS COMBO TABLET (FP) PO SCH ×2 (09:40→21:34)
[2021-06-16] MEDS: predniSONE 5 MG TABLET (UD) PO SCH (09:40)
[2021-06-16] MEDS: FAMOTIDINE 20 MG TABLET PO SCH (09:40)
[2021-06-16] MEDS: ATORVASTATIN CA 80 MG TABLET (FP) PO SCH (21:34)
[2021-06-17 07:24] LABS: INR 1.62 (0.83-1.09); PROTHROMBIN TIME (PATIENT) 18.7 SEC (9.7-13.0)
[2021-06-17 07:31] LABS: BASO % 0.4 % (0-2.0); EOS % 0.6 % (0-4.5); HEMATOCRIT 35.7 % (35.4-49); HEMOGLOBIN 11.5 GM/dL (11.7-16.9); MCH 26.4 pg (25.7-33.7); MCHC 32.4 g/dl (32.0-35.9); MEAN CELL VOLUME 81.4 fl (80-96); MEAN PLT VOLUME 7.7 fl (7.5-11.1); MONO % 8.8 % (3.8-10.2); NEUT % 73.2 % (42.8-82.8); PLATELET COUNT 296 10^3/uL (134-434); RBC 4.38 M/mm3 (4.00-5.60); RDW 16.9 % (11.9-15.9); WHITE BLOOD COUNT 12.3 K/mm3 (4.0-10.0)
[2021-06-17 08:24] LABS: ALBUMIN 3.2 g/dl (3.4-5.0); BILIRUBIN,TOTAL 0.6 mg/dL (0.2-1); CALCIUM 8.5 mg/dL (8.5-10.1); CREATININE 0.8 mg/dL (0.55-1.3); PHOSPHOROUS 3.4 mg/dL (2.5-4.9); TOT PROT 6.8 g/dl (6.4-8.2)
[2021-06-17] MEDS ORDERED: HEPARIN NA (PORCINE) 5,000 UNITS/ML 1ML VIAL IVPUSH PRN (08:44)
[2021-06-17] MEDS: HEPARIN - 25,000 UNIT in SODIUM CHLORIDE 495 ML IV SCH (09:26)
[2021-06-17] MEDS: predniSONE 5 MG TABLET (UD) PO SCH (09:28)
[2021-06-17] MEDS: CARVEDILOL 6.25 MG TABLET (FP) PO SCH ×2 (09:28→23:14)
[2021-06-17] MEDS: CALCIUM 500MG/VIT-D 200 UNITS COMBO TABLET (FP) PO SCH ×2 (09:28→23:14)
[2021-06-17] MEDS: FAMOTIDINE 20 MG TABLET PO SCH (09:28)
[2021-06-17] MEDS: LOSARTAN POTASSIUM 25 MG TABLET PO SCH (09:28)
[2021-06-17] MEDS: FOLIC ACID 1 MG TABLET (FP) PO SCH (09:28)
[2021-06-17 11:43] LABS: PROTHROMBIN TIME (PATIENT) 16.9 SEC (9.7-13.0)
[2021-06-17 11:44] LABS: ACTIVATED PTT 39.1 SECONDS (25.2-36.5); INR 1.46 (0.83-1.09)
[2021-06-17] MEDS: HEPARIN NA (PORCINE) 5,000 UNITS/ML 1ML VIAL IVPUSH PRN (15:15)
[2021-06-17] MEDS: WARFARIN NA 5 MG TABLET PO SCH (17:35)
[2021-06-17] MEDS: ATORVASTATIN CA 80 MG TABLET (FP) PO SCH (23:14)
[2021-06-18] MEDS: HEPARIN NA (PORCINE) 5,000 UNITS/ML 1ML VIAL IVPUSH PRN (03:02)
[2021-06-18] MEDS: HEPARIN - 25,000 UNIT in SODIUM CHLORIDE 495 ML IV SCH ×2 (03:03→14:31)
[2021-06-18 07:28] LABS: BASO % 0.3 % (0-2.0); EOS % 0.8 % (0-4.5); HEMATOCRIT 34.6 % (35.4-49); HEMOGLOBIN 10.9 GM/dL (11.7-16.9); LYMPH % 16.7 % (8-40); MCH 26.1 pg (25.7-33.7); MCHC 31.6 g/dl (32.0-35.9); MEAN CELL VOLUME 82.4 fl (80-96); MEAN PLT VOLUME 8.1 fl (7.5-11.1); MONO % 8.6 % (3.8-10.2); NEUT % 73.6 % (42.8-82.8); PLATELET COUNT 308 10^3/uL (134-434); RDW 16.8 % (11.9-15.9); WHITE BLOOD COUNT 14.9 K/mm3 (4.0-10.0)
[2021-06-18 08:37] LABS: ACTIVATED PTT > 400.0 SECONDS (25.2-36.5)
[2021-06-18 08:51] LABS: ALBUMIN 3.2 g/dl (3.4-5.0); BILIRUBIN,TOTAL 0.5 mg/dL (0.2-1); BLOOD UREA NITROGEN 15.4 mg/dL (7-18); CALCIUM 8.8 mg/dL (8.5-10.1); CREATININE 0.9 mg/dL (0.55-1.3); MAGNESIUM 1.9 mg/dL (1.8-2.4); PHOSPHOROUS 3.1 mg/dL (2.5-4.9); TOT PROT 6.8 g/dl (6.4-8.2)
[2021-06-18] MEDS: CARVEDILOL 6.25 MG TABLET (FP) PO SCH ×2 (09:17→23:13)
[2021-06-18] MEDS: LOSARTAN POTASSIUM 25 MG TABLET PO SCH (09:17)
[2021-06-18] MEDS: CALCIUM 500MG/VIT-D 200 UNITS COMBO TABLET (FP) PO SCH ×2 (09:17→23:13)
[2021-06-18] MEDS: FAMOTIDINE 20 MG TABLET PO SCH (09:17)
[2021-06-18] MEDS: FOLIC ACID 1 MG TABLET (FP) PO SCH (09:17)
[2021-06-18] MEDS: predniSONE 5 MG TABLET (UD) PO SCH (09:17)
[2021-06-18] MEDS: ASPIRIN 81 MG CHEWABLE TABLETS PO SCH (14:58)
[2021-06-18] MEDS: WARFARIN NA 5 MG TABLET PO SCH (17:13)
[2021-06-18] MEDS: ATORVASTATIN CA 80 MG TABLET (FP) PO SCH (23:13)
[2021-06-19] MEDS ORDERED: BISACODYL 5 MG TABLET.DR (FP) PO PRN (06:19)
[2021-06-19 08:55] LABS: BASO % 0.4 % (0-2.0); EOS % 0.8 % (0-4.5); HEMOGLOBIN 11.7 GM/dL (11.7-16.9); MCH 26.4 pg (25.7-33.7); MCHC 32.4 g/dl (32.0-35.9); MEAN CELL VOLUME 81.6 fl (80-96); MEAN PLT VOLUME 7.6 fl (7.5-11.1); MONO % 6.9 % (3.8-10.2); NEUT % 75.9 % (42.8-82.8); PLATELET COUNT 299 10^3/uL (134-434); RBC 4.42 M/mm3 (4.00-5.60); RDW 17.6 % (11.9-15.9); WHITE BLOOD COUNT 15.2 K/mm3 (4.0-10.0)
[2021-06-19 09:01] LABS: INR 1.69 (0.83-1.09); PROTHROMBIN TIME (PATIENT) 19.5 SEC (9.7-13.0)
[2021-06-19 09:15] LABS: ALBUMIN 3.4 g/dl (3.4-5.0)
[2021-06-19 09:17] LABS: CALCIUM 8.6 mg/dL (8.5-10.1)
[2021-06-19 09:18] LABS: BLOOD UREA NITROGEN 14.6 mg/dL (7-18); CREATININE 0.8 mg/dL (0.55-1.3); PHOSPHOROUS 3.4 mg/dL (2.5-4.9)
[2021-06-19 09:20] LABS: BILIRUBIN,TOTAL 0.7 mg/dL (0.2-1); TOT PROT 7.2 g/dl (6.4-8.2)
[2021-06-19] MEDS: HEPARIN - 25,000 UNIT in SODIUM CHLORIDE 495 ML IV SCH (09:47)
[2021-06-19] MEDS: CALCIUM 500MG/VIT-D 200 UNITS COMBO TABLET (FP) PO SCH ×2 (09:54→21:33)
[2021-06-19] MEDS: FOLIC ACID 1 MG TABLET (FP) PO SCH (09:54)
[2021-06-19] MEDS: CARVEDILOL 6.25 MG TABLET (FP) PO SCH ×2 (09:54→21:33)
[2021-06-19] MEDS: LOSARTAN POTASSIUM 25 MG TABLET PO SCH (09:54)
[2021-06-19] MEDS: ASPIRIN 81 MG CHEWABLE TABLETS PO SCH (09:54)
[2021-06-19] MEDS: predniSONE 5 MG TABLET (UD) PO SCH (09:54)
[2021-06-19] MEDS: FAMOTIDINE 20 MG TABLET PO SCH (09:54)
[2021-06-19] MEDS: POLYETHYLENE GLYCOL (HEALTHYLAX) 3350 17 GM PACKET PO SCH (09:54)
[2021-06-19] MEDS: WARFARIN NA 5 MG TABLET PO SCH (17:06)
[2021-06-19] MEDS: ATORVASTATIN CA 80 MG TABLET (FP) PO SCH (21:33)
[2021-06-19] MEDS ORDERED: SENNOSIDES 8.6MG TABLET (FP) PO SCH (22:00)
[2021-06-20 07:35] LABS: HEMATOCRIT 32.4 % (35.4-49); HEMOGLOBIN 10.5 GM/dL (11.7-16.9); MCH 26.4 pg (25.7-33.7); MCHC 32.2 g/dl (32.0-35.9); MEAN CELL VOLUME 81.8 fl (80-96); MEAN PLT VOLUME 7.7 fl (7.5-11.1); PLATELET COUNT 265 10^3/uL (134-434); RBC 3.97 M/mm3 (4.00-5.60); RDW 17.3 % (11.9-15.9); WHITE BLOOD COUNT 15.1 K/mm3 (4.0-10.0)
[2021-06-20 07:39] LABS: INR 2.26 (0.83-1.09); PROTHROMBIN TIME (PATIENT) 26.2 SEC (9.7-13.0)
[2021-06-20 08:07] LABS: CALCIUM 8.2 mg/dL (8.5-10.1)
[2021-06-20 08:08] LABS: ALBUMIN 3.1 g/dl (3.4-5.0); BLOOD UREA NITROGEN 15.2 mg/dL (7-18)
[2021-06-20 08:11] LABS: CREATININE 0.8 mg/dL (0.55-1.3); PHOSPHOROUS 3.8 mg/dL (2.5-4.9)
[2021-06-20 08:12] LABS: TOT PROT 6.4 g/dl (6.4-8.2)
[2021-06-20 08:13] LABS: ACTIVATED PTT 50.8 SECONDS (25.2-36.5); BILIRUBIN,TOTAL 0.6 mg/dL (0.2-1)
[2021-06-20 08:29] VITALS: BP 116/57; PULSE 92; TEMP 98.4
[2021-06-20] MEDS: ASPIRIN 81 MG CHEWABLE TABLETS PO SCH (09:37)
[2021-06-20] MEDS: FAMOTIDINE 20 MG TABLET PO SCH (09:37)
[2021-06-20] MEDS: CALCIUM 500MG/VIT-D 200 UNITS COMBO TABLET (FP) PO SCH (09:37)
[2021-06-20] MEDS: CARVEDILOL 6.25 MG TABLET (FP) PO SCH (09:37)
[2021-06-20] MEDS: LOSARTAN POTASSIUM 25 MG TABLET PO SCH (09:37)
[2021-06-20] MEDS: FOLIC ACID 1 MG TABLET (FP) PO SCH (09:37)
[2021-06-20] MEDS: predniSONE 5 MG TABLET (UD) PO SCH (09:37)
[2021-06-20] MEDS: POLYETHYLENE GLYCOL (HEALTHYLAX) 3350 17 GM PACKET PO SCH (09:38)
[2021-06-20 22:56] VITALS: BMI 32.3
== END 2021-06-20 15:52 | disposition home or self-care (01) | DRG 661 ==
LOC: JER 00:27 → JERBED 04:16 → J4W 16:54
PROVIDERS: ADMIT Internal Medicine; ATTEND Internal Medicine
DX: D68.32 Hemorrhagic disorder due to extrinsic circulating anticoagulants (principal); M31.4 Aortic arch syndrome [Takayasu]; F20.9 Schizophrenia, unspecified; D64.9 Anemia, unspecified; E66.9 Obesity, unspecified; E78.5 Hyperlipidemia, unspecified; F32.A Depression, unspecified; H55.00 Unspecified nystagmus; I10 Essential (primary) hypertension; Z68.32 Body mass index [BMI] 32.0-32.9, adult; D72.829 Elevated white blood cell count, unspecified
CPT/HCPCS: 36415; 70450-TC; 80053; 81003; 82272; 82728; 82962; 83540; 83550; 83735; 84100; 85025; 85027; 85610; 85730; 87086; 93005; 93010; 93306-TC; 99285-25; C9803; J1644; U0003; U0005

== ENCOUNTER 2023-10-08 11:07 | Observation (INO) | payer OTHER ==
[2023-10-08 13:08] LABS: BASO % 0.4 % (0-2.0); EOS % 1.3 % (0-4.5); HEMATOCRIT 34.2 % (35.4-49); HEMOGLOBIN 11.5 GM/dL (11.7-16.9); LYMPH % 27.1 % (8-40); MCH 29.3 pg (25.7-33.7); MCHC 33.5 g/dl (32.0-35.9); MEAN CELL VOLUME 87.4 fl (80-96); MONO % 11.7 % (3.8-10.2); NEUT % 59.5 % (42.8-82.8); PLATELET COUNT 206 10^3/uL (134-434); RBC 3.92 M/mm3 (4.00-5.60); RDW 14.5 % (11.9-15.9)
[2023-10-08 13:17] LABS: INR 3.3 (0.83-1.09); PROTHROMBIN TIME (PATIENT) 36.6 SEC (9.7-13.0)
[2023-10-08 13:20] LABS: ACTIVATED PTT 59.5 SECONDS (25.2-36.5)
[2023-10-08 13:25] LABS: URINE APPEARANCE CLEAR; URINE BILIRUBIN NEGATIVE (NEGATIVE); URINE COLOR YELLOW; URINE GLUCOSE (UA) NEGATIVE (NEGATIVE); URINE KETONE NEGATIVE (NEGATIVE); URINE LEUK ESTERASE NEGATIVE (NEGATIVE); URINE NITRITE NEGATIVE (NEGATIVE); URINE PROTEIN NEGATIVE (NEGATIVE)
[2023-10-08 13:32] LABS: BLOOD UREA NITROGEN 6.6 mg/dL (7-18); CALCIUM 8.5 mg/dL (8.5-10.1)
[2023-10-08 13:33] LABS: ALBUMIN 3.3 g/dl (3.4-5.0); MAGNESIUM 1.8 mg/dL (1.8-2.4)
[2023-10-08 13:36] LABS: CREATININE 0.8 mg/dL (0.55-1.3)
[2023-10-08 13:37] LABS: BILIRUBIN,TOTAL 0.9 mg/dL (0.2-1)
[2023-10-08 13:38] LABS: TOT PROT 6.6 g/dl (6.4-8.2)
[2023-10-08] MEDS ORDERED: WARFARIN NA 1 MG TABLET ONE (18:01)
[2023-10-08] MEDS: WARFARIN NA 2 MG TABLET PO SCH (18:02)
[2023-10-08] MEDS: CALCIUM 500MG/VIT-D 200 UNITS COMBO TABLET (FP) PO SCH (21:34)
[2023-10-08] MEDS: CARVEDILOL 6.25 MG TABLET (FP) PO SCH (21:34)
[2023-10-08] MEDS: ATORVASTATIN CA 80 MG TABLET (FP) PO SCH (21:34)
[2023-10-08] MEDS: WARFARIN NA 2 MG TABLET PO ONE (21:34)
[2023-10-09 02:09] VITALS: BMI 28.4
[2023-10-09 07:03] LABS: HEMATOCRIT 35.2 % (35.4-49); HEMOGLOBIN 11.7 GM/dL (11.7-16.9); MCH 29.2 pg (25.7-33.7); MCHC 33.2 g/dl (32.0-35.9); MEAN CELL VOLUME 87.8 fl (80-96); MEAN PLT VOLUME 8.5 fl (7.5-11.1); PLATELET COUNT 201 10^3/uL (134-434); RBC 4.01 M/mm3 (4.00-5.60); RDW 13.9 % (11.9-15.9); WHITE BLOOD COUNT 7.1 K/mm3 (4.0-10.0)
[2023-10-09 07:12] LABS: INR 3.42 (0.83-1.09); PROTHROMBIN TIME (PATIENT) 37.9 SEC (9.7-13.0)
[2023-10-09 07:25] LABS: POTASSIUM 3.8 mmol/L (3.5-5.1)
[2023-10-09 07:28] LABS: CALCIUM 8.4 mg/dL (8.5-10.1)
[2023-10-09 07:34] LABS: BILIRUBIN,TOTAL 0.9 mg/dL (0.2-1); TOT PROT 6.2 g/dl (6.4-8.2)
[2023-10-09 07:35] LABS: CREATININE 0.7 mg/dL (0.55-1.3)
[2023-10-09] MEDS ORDERED: LOSARTAN POTASSIUM 25 MG TABLET PO SCH (10:00)
[2023-10-09] MEDS: ASPIRIN COATED 81 MG TABLET.EC PO SCH (10:19)
[2023-10-09] MEDS: FOLIC ACID 1 MG TABLET (FP) PO SCH (10:19)
[2023-10-09] MEDS: FAMOTIDINE 40 MG TABLET PO SCH (10:19)
[2023-10-09] MEDS: WARFARIN NA 2 MG TABLET PO SCH (17:26)
[2023-10-09] MEDS ORDERED: WARFARIN NA 2 MG TABLET PO ONE (18:14)
[2023-10-09] MEDS: WARFARIN NA 2 MG TABLET PO ONE (20:04)
[2023-10-10 00:51] VITALS: RESP 18
[2023-10-10 08:17] LABS: INR 3.66 (0.83-1.09); PROTHROMBIN TIME (PATIENT) 40.5 SEC (9.7-13.0)
[2023-10-10] MEDS ORDERED: FAMOTIDINE 20 MG TABLET PO SCH (10:51)
[2023-10-10] MEDS: FAMOTIDINE 20 MG TABLET PO SCH (10:53)
[2023-10-10] MEDS: WARFARIN NA 2 MG TABLET PO SCH (18:22)
[2023-10-11 07:14] VITALS: PULSE 68
[2023-10-11 08:24] LABS: INR 3.68 (0.83-1.09)
[2023-10-11 09:02] VITALS: BP 122/68; TEMP 98
[2023-10-11] MEDS ORDERED: WARFARIN NA 2 MG TABLET PO SCH ×2 (10:00→18:00)
[2023-10-11] MEDS ORDERED: WARFARIN NA 3 MG TABLET PO SCH (18:00)
[2023-10-16] MEDS ORDERED: WARFARIN NA 3 MG TABLET PO SCH (18:00)
== END 2023-10-11 09:58 | disposition home or self-care (01) ==
LOC: JER 11:07 → JERBED 16:46 → J4S 19:37
PROVIDERS: ADMIT Internal Medicine; ATTEND Internal Medicine
DX: R07.89 Other chest pain (principal); I10 Essential (primary) hypertension; E78.5 Hyperlipidemia, unspecified; M31.4 Aortic arch syndrome [Takayasu]; R20.0 Anesthesia of skin; F20.9 Schizophrenia, unspecified; F32.A Depression, unspecified; I71.20 Thoracic aortic aneurysm, without rupture, unspecified; Z95.2 Presence of prosthetic heart valve; Z91.011 Allergy to milk products
CPT/HCPCS: 0241U-QW; 36415; 71045-TC-FY; 71275-TC; 74174-TC; 80053; 81003; 82550; 82962; 83735; 84484; 85025; 85027; 85610; 85730; 87086; 93005; 93010; 93306-TC; 97116-GP; 97161-GP; 99285-25; G0378; Q9967

== ENCOUNTER 2024-06-01 09:52 | Observation (INO) | payer OTHER ==
[2024-06-01 10:28] LABS: BASO % 0.4 % (0-2.0); EOS % 1.9 % (0-4.5); HEMATOCRIT 37.7 % (35.4-49); HEMOGLOBIN 12.5 GM/dL (11.7-16.9); LYMPH % 31.5 % (8-40); MCH 28.4 pg (25.7-33.7); MCHC 33.3 g/dl (32.0-35.9); MEAN CELL VOLUME 85.2 fl (80-96); MEAN PLT VOLUME 7.3 fl (7.5-11.1); MONO % 9.3 % (3.8-10.2); NEUT % 56.9 % (42.8-82.8); PLATELET COUNT 239 10^3/uL (134-434); RBC 4.42 M/mm3 (4.00-5.60); RDW 13.8 % (11.9-15.9); WHITE BLOOD COUNT 6.1 K/mm3 (4.0-10.0)
[2024-06-01 10:31] LABS: INR 1.18 (0.83-1.09); PROTHROMBIN TIME (PATIENT) 13.5 SEC (9.7-13.0)
[2024-06-01 11:03] LABS: POTASSIUM 3.3 mmol/L (3.5-5.1)
[2024-06-01 11:05] LABS: ALBUMIN 3.5 g/dl (3.4-5.0); CALCIUM 8.9 mg/dL (8.5-10.1)
[2024-06-01 11:06] LABS: MAGNESIUM 1.7 mg/dL (1.8-2.4)
[2024-06-01 11:08] LABS: CREATININE 0.9 mg/dL (0.55-1.3)
[2024-06-01 11:10] LABS: BILIRUBIN,TOTAL 0.7 mg/dL (0.2-1)
[2024-06-01] MEDS ORDERED: POTASSIUM CHLORIDE TABS 20 MEQ TABLET.ER (FP) PO ONE (13:11)
[2024-06-01] MEDS ORDERED: MAGNESIUM 1GM/D5W - 1 GM/100 ML IVPB IVPB ONE (13:11)
[2024-06-01] MEDS: POTASSIUM CHLORIDE TABS 20 MEQ TABLET.ER (FP) PO ONE (13:25)
[2024-06-01] MEDS: MAGNESIUM SULF 50% (8.12 MEQ/2 ML-1 GM VIAL) IVPB ONE (13:25)
[2024-06-01] MEDS ORDERED: ENOXAPARIN NA (PORCINE) 80 MG/0.8 ML DISP.SYRIN SQ ONE (15:16)
[2024-06-01] MEDS: ENOXAPARIN NA (PORCINE) 80 MG/0.8 ML DISP.SYRIN SQ SCH (15:19)
[2024-06-01 16:38] LABS: HIV INTERPRETATION NEGATIVE (NEGATIVE)
[2024-06-01 18:32] VITALS: BMI 25.7
[2024-06-01] MEDS: WARFARIN NA 3 MG TABLET PO SCH (18:43)
[2024-06-01] MEDS: ATORVASTATIN CA 80 MG TABLET (FP) PO SCH (21:27)
[2024-06-01] MEDS: CARVEDILOL 6.25 MG TABLET (FP) PO SCH (21:27)
[2024-06-02 08:16] LABS: INR 1.18 (0.83-1.09); PROTHROMBIN TIME (PATIENT) 13.3 SEC (9.7-13.0)
[2024-06-02 08:21] LABS: BASO % 0.6 % (0-2.0); EOS % 2.6 % (0-4.5); HEMATOCRIT 35.2 % (35.4-49); HEMOGLOBIN 11.6 GM/dL (11.7-16.9); LYMPH % 35.6 % (8-40); MCH 28.3 pg (25.7-33.7); MEAN CELL VOLUME 85.9 fl (80-96); MEAN PLT VOLUME 7.7 fl (7.5-11.1); MONO % 8.1 % (3.8-10.2); NEUT % 53.1 % (42.8-82.8); PLATELET COUNT 233 10^3/uL (134-434); RDW 13.5 % (11.9-15.9); WHITE BLOOD COUNT 6.4 K/mm3 (4.0-10.0)
[2024-06-02 08:45] LABS: POTASSIUM 3.9 mmol/L (3.5-5.1)
[2024-06-02 08:48] LABS: CALCIUM 8.5 mg/dL (8.5-10.1)
[2024-06-02 08:49] LABS: BLOOD UREA NITROGEN 9.6 mg/dL (7-18); MAGNESIUM 1.9 mg/dL (1.8-2.4)
[2024-06-02 08:50] LABS: CREATININE 0.7 mg/dL (0.55-1.3)
[2024-06-02] MEDS: LOSARTAN POTASSIUM 50 MG TABLET PO SCH (10:03)
[2024-06-02] MEDS: FOLIC ACID 1 MG TABLET (FP) PO SCH (10:03)
[2024-06-02] MEDS: FAMOTIDINE 20 MG TABLET PO SCH (10:03)
[2024-06-02] MEDS: LACTATED RINGERS SOLUTION 1,000 ML/1,000 ML INFUS.BAG IV SCH (18:03)
[2024-06-02] MEDS: WARFARIN NA 3 MG TABLET PO SCH (18:04)
[2024-06-03 07:25] LABS: HEMATOCRIT 38.5 % (35.4-49); HEMOGLOBIN 12.6 GM/dL (11.7-16.9); MCH 28.4 pg (25.7-33.7); MCHC 32.8 g/dl (32.0-35.9); MEAN CELL VOLUME 86.5 fl (80-96); PLATELET COUNT 240 10^3/uL (134-434); RBC 4.45 M/mm3 (4.00-5.60); RDW 13.6 % (11.9-15.9); WHITE BLOOD COUNT 7.1 K/mm3 (4.0-10.0)
[2024-06-03 07:27] LABS: INR 1.24 (0.83-1.09); PROTHROMBIN TIME (PATIENT) 13.9 SEC (9.7-13.0)
[2024-06-03 16:09] VITALS: BP 124/80; PULSE 80; RESP 19; TEMP 98.6
== END 2024-06-03 18:04 | disposition home or self-care (01) ==
LOC: JER 09:52 → JERBED 13:16 → J4W 17:26
PROVIDERS: ADMIT Internal Medicine; ATTEND Internal Medicine
PROC: 3E033GC Introduction of Other Therapeutic Substance into Peripheral Vein, Percutaneous Approach (ICD-10-PCS; principal; 2024-06-01)
PROC: 3E023GC Introduction of Other Therapeutic Substance into Muscle, Percutaneous Approach (ICD-10-PCS; 2024-06-01)
PROC: 3E0337Z Introduction of Electrolytic and Water Balance Substance into Peripheral Vein, Percutaneous Approach (ICD-10-PCS; 2024-06-01)
DX: M31.4 Aortic arch syndrome [Takayasu] (principal); F32.A Depression, unspecified; F20.9 Schizophrenia, unspecified; R79.1 Abnormal coagulation profile; E83.42 Hypomagnesemia; E87.6 Hypokalemia; I95.1 Orthostatic hypotension; M25.511 Pain in right shoulder; R63.4 Abnormal weight loss; I71.20 Thoracic aortic aneurysm, without rupture, unspecified; E78.5 Hyperlipidemia, unspecified
CPT/HCPCS: 36415; 70450-TC; 71045-TC-FY; 73030-TC-RT-FY; 80048; 80053; 83735; 84439; 84443; 84484; 85025; 85027; 85610; 86803; 86850; 86900; 86901; 87389; 93005; 93010; 93306-TC; 96361; 96372; 96374; 97116-GP; 97161-GP; 99285-25; G0378